=== PATIENT | female | born 2000 | race Caucasian/White ===

== ENCOUNTER 2023-09-21 11:23 | Outpatient (CLI) | payer MEDICAID, SELFPAY | END 2023-09-21 11:24 | disposition home or self-care (01) | LOC: NFLDREF 11:25 | PROVIDERS: Visit Provider Advanced Practice Midwife | DX: Z34.03 Encounter for supervision of normal first pregnancy, third trimester (principal); Z67.91 Unspecified blood type, Rh negative | CPT/HCPCS: 86592; 86850; 87086; 87340; J2791 ==

== ENCOUNTER 2023-10-02 19:18 | Outpatient (CLI) | payer MEDICAID, SELFPAY ==
[2023-10-02 19:37] VITALS: BP 122/72; PULSE 100; RESP 18; TEMP 37.1
--- NOTE | 2023-10-02 21:13 | PC.OBNST ---
NST Note NST Note Start: 10/02/23 19:35 Freq: ONCE Status: Active Protocol: Document 10/02/23 21:00 SHAUNA (Rec: 10/02/23 21:03 SHAUNA [id number]) NST Note 1 Para (# of births) 0 EDC 12/11/23 Gestational Age In Weeks & Days 30 Weeks & 0 Days Patient Presented with Complaint(s) of Vaginal bleeding Reactive Yes Appropriate for Gestational Age Yes SABA Ram RN Date 10/02/23 Reactive Yes Appropriate for Gestational Age Yes SABA Cook RN Date 10/02/23 OB NST charge Yes Complete NST Note via Write Note Yes The provider's electronic signature indicates the NST is reactive/appropriate for gestational age. *Note to provider: If an addendum is required, open the patient's chart and click on the note under the Nurse/Allied Health tab.
--- NOTE | 2023-10-07 16:30 | PC.OBNST ---
NST Note NST Note Start: 10/02/23 19:35 Freq: ONCE Status: Discharge Protocol: Document 10/02/23 21:00 SHAUNA (Rec: 10/02/23 21:03 SHAUNA [id number]) NST Note 1 Para (# of births) 0 EDC 12/11/23 Gestational Age In Weeks & Days 30 Weeks & 0 Days Patient Presented with Complaint(s) of Vaginal bleeding Reactive Yes Appropriate for Gestational Age Yes SABA Ram RN Date 10/02/23 Reactive Yes Appropriate for Gestational Age Yes SABA Cook RN Date 10/02/23 OB NST charge Yes Complete NST Note via Write Note Yes The provider's electronic signature indicates the NST is reactive/appropriate for gestational age. *Note to provider: If an addendum is required, open the patient's chart and click on the note under the Nurse/Allied Health tab.
== END 2023-10-02 20:26 | disposition home or self-care (01) ==
LOC: OB OUT 19:19 → OB 19:19
PROVIDERS: Visit Provider Advanced Practice Midwife
DX: O46.93 Antepartum hemorrhage, unspecified, third trimester (principal); Z3A.30 30 weeks gestation of pregnancy
CPT/HCPCS: 59025; G0463

== ENCOUNTER 2023-11-16 15:00 | Outpatient (CLI) | payer MEDICAID, SELFPAY | END 2023-11-16 15:01 | disposition home or self-care (01) | LOC: NFLDREF 11-18 02:25 | PROVIDERS: Visit Provider Obstetrics & Gynecology | DX: Z34.93 Encounter for supervision of normal pregnancy, unspecified, third trimester (principal); R09.89 Other specified symptoms and signs involving the circulatory and respiratory systems; Z3A.36 36 weeks gestation of pregnancy | CPT/HCPCS: 87081; 87653 ==

== ENCOUNTER 2023-11-17 14:51 | Outpatient (CLI) | payer MEDICAID, SELFPAY ==
--- NOTE | 2023-11-17 15:00 | CRLHL7_ITS ---
For Patients: As a result of the Century Cures Act, medical imaging exams and procedure reports are released immediately into your electronic medical record. You may view this report before your referring provider. If you have questions, please contact your health care provider. INDICATION: Pain and swelling left lower extremity. patient. COMPARISON: None. TECHNIQUE: A compression venous ultrasound exam was performed of the left lower extremity using hastings-scale imaging, color Doppler, and spectral Doppler analysis. FINDINGS: Sonographic imaging of the left lower extremity demonstrates normal compressibility and color Doppler venous blood flow within the common femoral, femoral, deep femoral, and proximal greater saphenous veins. At a lower level the popliteal, peroneal, and posterior tibial veins also show normal compressibility and color Doppler venous blood flow. There is a patent superficial varicosity along the lateral aspect of the left knee. Limited imaging of the contralateral groin demonstrates a normal spectral waveform and color Doppler venous blood flow within the right common femoral vein. IMPRESSION: Negative for acute DVT in the left lower extremity. Dictated by Aleyda Shah MD @ 11/18/2023 2:40:17 AM (Electronically Signed)
== END 2023-11-17 14:52 | disposition home or self-care (01) ==
LOC: US 14:51
PROVIDERS: Visit Provider Obstetrics & Gynecology
DX: O26.899 Other specified pregnancy related conditions, unspecified trimester (principal); R09.89 Other specified symptoms and signs involving the circulatory and respiratory systems
CPT/HCPCS: 93971

== ENCOUNTER 2023-12-12 17:13 | Inpatient (IN) | payer MEDICAID, SELFPAY ==
[2023-12-12] VITALS (29 sets, daily range): BP systolic 108–138; BP diastolic 54–86; PULSE 80–103; TEMP 36.4–36.8; O2SAT 96–100; BMI 38.9
[2023-12-12 17:01] LABS: Amnisure Rom* POSITIVE
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
[2023-12-12 20:33] LABS: Basophils Percent Auto 0.2 % (0.0-3.0); Hemoglobin* 11.2 gm/dL (12.0-16.0); Immature Granulocytes Pct Auto 0.5 %; Lymphocytes Percent Auto 8.1 % (20-44); Mean Corpuscular HGB Conc 33 gm/dL (32-36); Mean Corpuscular Hemoglobin 29 pg (26-34); Mean Corpuscular Volume 87 fL (80-100); Monocytes Percent Auto 8.6 % (0.0-11.0); Neutrophils Percent Auto 82.6 % (42.0-72.0); Platelet Count* 216 K/uL (140-440); RDW Coefficient of Variation % 12.1 % (11.5-15.5); Red Blood Count 3.92 m/uL (4.00-5.20); Slide Review Reflex No; White Blood Count* 13.33 K/uL (4.50-11.00)
[2023-12-12] MEDS: LACTATED RINGERS 1000 ML 1,000 ML IV ×2 (21:09→22:11)
[2023-12-12] MEDS: ROPIVACAINE 0.2% 100 ml 100 ML 12 MG EPIDURAL (21:46)
[2023-12-12] MEDS: LIDOCAINE 2% (PF) 5 ML VIAL EPIDURAL (21:52)
--- NOTE | 2023-12-12 21:58 | PM.ANBPRC ---
[facility] Medical History Anxiety and depression ?F41.9 - Anxiety disorder, unspecified (ICD-10) ?F32.A - Depression, unspecified (ICD-10) Surgical History H/O Spinal surgery ?Z98.890 - Other specified postprocedural states (ICD-10) Social History What is your current living situation?: I presently have a place to live Problems where you live: no known problems In the past 12 months, utilities in danger of being shut off: no In past 12 months, lack of transportation kept you from medical appts, meetings, work, or getting things needed for daily living: no In the past 12 mos, have been you worried that your food would run out before you had money to buy more?: never true In the past 12 mos, the food you bought just didn't last and you didn't have money to buy more?: never true Smoking Status: Never smoker How often does anyone, including family, friends and others, physically hurt you: never How often does anyone, including family, friends and others, insult or talk down to you: never How often does anyone, including family, friends and others, threaten you with harm: never How often does anyone, including family, friends and others, scream or curse at you: never Little interest or pleasure in doing things: several days Feeling down, depressed, or hopeless: not at all Meds Home Medications and Allergies Home Medications ?Medication ?Instructions ?Recorded ?Confirmed ?Type PNV 86-iron ps 32 mg iron-folic 1 See Rx Instructions PO PER PKG DIR 09/07/23 12/12/23 History mg-dha 120 mg-epa 180 mg oral pack ondansetron HCl 4 mg tablet 4 mg PO Q8H 09/07/23 12/12/23 History pyridoxine (vitamin B6) 25 mg 25 mg PO QDAY 09/07/23 12/12/23 History tablet Allergies Allergy/AdvReac Type Severity Reaction Status Date / Time No Known Drug Allergies Allergy Verified 12/07/23 11:04 Results Labs Labs: Laboratory Results - last 24 hr 12/12/23 12/12/23 16:31 20:28 WBC 13.33 H RBC 3.92 L Hgb 11.2 L Hct 34.0 MCV 87 MCH 29 MCHC 33 RDW Coeff of [place] 12.1 Plt Count 216 Neut % (Auto) 82.6 H Lymph % (Auto) 8.1 L [place] % (Auto) 8.6 Eos % (Auto) 0.0 Baso % (Auto) 0.2 Neut # (Auto) 11.00 H Lymph # (Auto) 1.10 [place] # (Auto) 1.10 H Eos # (Auto) 0.00 Baso # (Auto) 0.00 Abs Immat Gran (auto) 0.10 Imm/Tot Granulo (auto) 0.5 Membrane Rupture POSITIVE Vital Signs Vital Signs: Last Vital Signs Temp 98 F 12/12/23 20:31 Pulse 96 12/12/23 21:54 BP 127/75 12/12/23 21:54 Pulse Ox 98 12/12/23 21:55 Weight: 109.316 kg Height: 167.64 cm Anesthesia Procedures Epidural Insertion Patient Location: OB Start Time: 21:00 Stop Time: 22:00 Start Date: 12/12/23 Stop Date: 12/12/23 Reason for Block: procedure for pain Patient Position: sitting Performed By: Damon Yin Preanesthetic Checklist: IV checked, risks and benefits discussed, surgical consent, monitors and equipment checked, pre-op evaluation, timeout performed and anesthesia consent Prep: chlorhexidine gluconate Monitoring: blood pressure monitoring, continuous pulse oximetry and heart rate Approach: midline Vertebral Space: lumbar (1-5) Epidural Technique: FABIOLA saline Needle Type: Tuohy needle Injection Technique: continuous catheter Needle gauge: 17 Needle Length (cm): 10 cm Needle Insertion Depth (cm): 9 Catheter Gauge: 19 Catheter Type: multi-orifice Catheter at skin depth (cm): 15 Test Dose Result: negative and lidocaine 1.5% with epinephrine 1 to 200,000
[2023-12-13] VITALS (29 sets, daily range): BP systolic 102–148; BP diastolic 52–90; PULSE 74–119; RESP 16–18; TEMP 36.5–37.7; O2SAT 95–97
[2023-12-13] MEDS: LIDOCAINE 2% (PF) 5 ML VIAL EPIDURAL (01:40)
[2023-12-13] MEDS: OXYTOCIN 30 unit/500 ML in NS 30 UNIT/500 ML BAG 300 UNIT IVPB (03:57)
[2023-12-13] MEDS: METHYLERGONOVINE MALEATE 0.2 MG/ML INJ IM (04:05)
[2023-12-13] MEDS: miSOPROStoL 800 MCG/4 TABLET PR (04:06)
[2023-12-13] MEDS: TRANEXAMIC ACID 100 MG/ML INJ 1000 MG IV (04:10)
[2023-12-13] MEDS: LIDOCAINE 1 % PF 30 ML INJECTION (04:13)
--- NOTE | 2023-12-13 04:50 | W.PM.VAGDEL1 ---
Procedure Delivery date: 12/13/23 Procedure Done: Global Events: Meconium Stained Fluid Intrapartal Events: Mod/Heavy Meconium Fluid and Excessive Bleeding Delivery monitor: external FHT Route of delivery: Episiotomy description: None Laceration description: Labial (Small bilateral labial tears near hymenal ring ) Delivery repair: Vicryl Estimated blood loss (mL): 589 Anesthesia type: Epidural Disposition: floor Complications: None Narrative: The patient is a 23 year-old G 1 P 0 admitted on 12/13/23 at 40 and 1/7 weeks gestation for ruptured of membrane at 1500 and spontaneous labor. SROM occurred at 1500 on 12/12/23 with clear fluid initially but had moderate meconium upon pushing. Labor Analgesia: Epidural Pitocin: For active management of 3rd stage of labor Complete: 12/13/23 at 0228 Pushin12/13/23 at 0235 heart tones during second stage were II At 0351 a viable female infant delivered in vertex OA presentation via spontaneous vaginal delivery. Infant was placed on maternal abdomen. Cord was clamped and cut after a 30-60 second delay. Nose and mouth were bulb suctioned. weight: pending. 8 at 1 minute and 8 at 5 minutes. Shoulder dystocia: No. Nuchal cord: Yes - loose and reduced. Placenta delivered spontaneously and complete at 0355 with a 3 vessel cord. Complications: Uterine atony causing increased bleeding. Uterotonics: 30u of pitocin, 0.2 mg of methergine x 1, 1 g of TXA, and 800 mcg of misoprostol rectally Mother and were stable after delivery. Laceration(s): 1st degree perineal and bilateral labial, repaired with 2-0 vircyl in a continuos locking manner. Sponge and needles counts are correct. Mother and infant were stable at the time of this note. Fani is planning on . Infant Infant Gender: Female presentation: vertex Placental Delivery Description: Spontaneous Cord Description: 3 Vessels, Nuchal Cord (Nuchal cord x 1) and Loose (Reduced)
[2023-12-13] MEDS: IBUPROFEN 600 MG TABLET PO ×3 (05:14→19:48)
[2023-12-13] MEDS: FERROUS SULFATE 325 MG TABLET PO (08:45)
[2023-12-13] MEDS: DOCUSATE SODIUM 100 MG CAPSULE PO (08:46)
[2023-12-13] MEDS: ACETAMINOPHEN 500 MG TABLET 1000 MG PO ×3 (08:46→22:00)
[2023-12-14] VITALS: BP 125/83; PULSE 92; RESP 18; TEMP 36.5; O2SAT 97
[2023-12-14 04:00] VITALS: BP 112/73; PULSE 86; RESP 16; TEMP 36.6; O2SAT 97
[2023-12-14 06:59] LABS: Hemoglobin* 7.9 gm/dL (12.0-16.0)
--- NOTE | 2023-12-14 07:50 | PM.OBPNVD1 ---
OB - PN:Subj Subjective Date Seen: 12/14/23 Patient comments OB post-: no complaints, pain well controlled, tolerating diet and flatus present Independence status: and doing well Independence feeding status: exclusively Narrative: Fani feels well.? Her pain is well controlled with current medications.? She has no new complaints.? Urinary output is adequate and she is voiding without difficulty.? Has a good appetite, is tolerating a general diet, is passing flatus, and has had a bowel movement.? Has scant amount of rubra lochia.? She is ambulating well.?She denies feeling light headed, fatigues, or dizzy. We discussed her Hgb results this morning. She denies feeling symptomatic even in the shower this morning. We discussed option of titrating with oral iron, blood transfusion, IV iron infusion, and retesting hgb later today or sooner if symptoms present. Due to her lack of symptoms we discussed that a transfusion is not necessary. We discussed risks and benefits of retesting, oral iron, and IV iron infusion. She would like to retest hgb later today and start oral iron. She had considered discharge today but will plan to discharge tomorrow instead given this new information. Reviewed signs and symptoms to report. OB - PN: Obj Exam Physical Exam: Vital signs: Temp Pulse Resp BP Pulse Ox O2 Del Method 97.9 F 86 16 112/73 97 Room Air 12/14/23 04:00 12/14/23 04:00 12/14/23 04:00 12/14/23 04:00 12/14/23 04:00 12/14/23 04:00 Narrative: GENERAL APPEARANCE:? normal affect, alert, no distress? MOOD:? appropriate? CHEST:? clear to auscultation and percussion? HEART:? regular rate and rhythm? ABDOMEN:? soft, non-tender the uterine fundus is U/2 and is appropriate for the stage of recovery.? PERINEUM:? mild edema of the perineum, there is a labial laceration that is healing well.? EXTREMITIES:? normal and no edema? OB - PN: Obj Data Labs Labs: Laboratory Results - last 24 hr 12/14/23 06:17 Hgb 7.9 L* OB - PN: A/P Delivery Assessment and Plan (1) Rh negative status during : Status: Acute (2) Maternal varicella, non-immune: Status: Acute (3) Lactating mother: Status: Acute (4) care following vaginal delivery: Status: Acute Plan day: 1 Plan: routine care Comments: Anticipate discharge home tomorrow. Repeat Hgb around 1500 today. Start oral iron EOD.
[2023-12-14] MEDS: FERROUS SULFATE 325 MG TABLET PO (08:25)
[2023-12-14] MEDS: DOCUSATE SODIUM 100 MG CAPSULE PO (08:26)
[2023-12-14 08:31] VITALS: BP 117/83; PULSE 91; RESP 18; TEMP 36.5; O2SAT 98
--- NOTE | 2023-12-14 12:07 | PM.ANPOST ---
Post Anesthesia Note Post Anesthesia Note Patient seen: Inpatient Respiratory Status: adequate Cardiovascular Status: adequate Mental Status: baseline Pain: adequate Temp: baseline Anesthetic awareness: N/A Complications: none Follow care: none
[2023-12-14] MEDS: IBUPROFEN 600 MG TABLET PO (13:05)
[2023-12-14 13:33] VITALS: BP 123/86; PULSE 86; RESP 18; TEMP 36.5; O2SAT 99
[2023-12-14 15:50] LABS: HGB WITH REFLEX TO FERRITIN 8.4 (12.0-16.0)
[2023-12-14 17:20] LABS: Ferritin* 11.6 ng/mL (6.24-137.0)
[2023-12-14] MEDS: ACETAMINOPHEN 500 MG TABLET 1000 MG PO (17:35)
[2023-12-14 20:00] VITALS: BP 113/73; PULSE 78; RESP 20; TEMP 36.7; O2SAT 98
[2023-12-14 23:13] LABS: Rapid Plasma Reagin (RPR) Non Reactive (Non Reactive)
[2023-12-15] MEDS: IBUPROFEN 600 MG TABLET PO ×2 (02:14→08:27)
[2023-12-15 04:30] VITALS: BP 125/85; RESP 18; TEMP 36.7; O2SAT 97
--- NOTE | 2023-12-15 08:00 | PM.OBDSVD1 ---
DS: Providers Provider Date Seen: 12/15/23 Date of admission: 12/12/23 17:13 Primary care physician: Not a Local Provider Admitting Clinician: Shalini Alejo MD Attending Physician on discharge: Sachin SALAZAR APRN Date of Discharge: 12/15/23 DS: Diagnosis Discharge Diagnosis (1) care following vaginal delivery: Status: Acute (2) Lactating mother: Status: Acute (3) Maternal varicella, non-immune: Status: Acute (4) Perineal laceration during delivery: Status: Acute Problem details: 1st degree perineal and bilateral labial repaired Exam Narrative: Exam Narrative: GENERAL APPEARANCE:? normal affect, alert, no distress MOOD:? appropriate CHEST:? clear to auscultation HEART:? regular rate and rhythm ABDOMEN:? soft, non-tender the uterine fundus is At Umbilicus, Midline and is appropriate for the stage of recovery. EXTREMITIES:? normal and moderate edema of lower extremities with left much more swollen. No localized areas of tenderness, erythema. Const: Vital Signs, click to edit/add: Vital Signs - 24 hr 12/14/23 08:31 12/14/23 13:33 12/14/23 20:00 Temperature 97.7 F 97.7 F 98.0 F Pulse Rate [Pulse Oximeter] 91 86 78 Respiratory Rate 18 18 20 Blood Pressure [Le ft Arm] 117/83 123/86 113/73 Pulse Oximetry 98 99 98 Oxygen Delivery Me thod Room Air Room Air Room Air 12/15/23 04:30 Temperature 98.0 F Pulse Rate [Pulse Oximeter] Respiratory Rate 18 Blood Pressure [Le ft Arm] 125/85 Pulse Oximetry 97 Oxygen Delivery Me thod Room Air OB - DS: Summary Hospital Course Hospital Course: The patient is a 23 year old G 1 P 1001 at 40w4d weeks gestation that was admitted to the Center on 12/12/23 for SROM at term. She had an uncomplicated vaginal delivery. She delivered a viable female infant. She is . the patient has done well. The patient feels well.? The pain is well controlled with current medications.? She has no new complaints.? She is breast feeding and reports things are going well, but baby cluster fed last night. the patient has done well.? Vitals have been stable.? She has remained afebrile.? Has a good appetite, is tolerating a general diet.? She is voiding without difficulty.? She is passing gas and has had a bowel movement.? She is ambulating and denies any dizziness.? Has small amount of rubra lochia. She is unsure of plan for prevention.? ?? Problems: anemia due to blood loss? Peripartum Data complications: uterine atony [place] Infant Gender: Female Infant Discharge Plan: Home Time Spent with Patient Time attestation: Total time spent providing and/or coordinating discharge services: Time spent: Less than 30 minutes Discharge Plan Discharge Disposition: Home, Self-Care Date of Admission: 12/12/23 17:13 Attending Provider on Discharge: Jodee Kimball Primary Care Provider: Provider,Not a Local Condition: Stable Anticipated Discharge Date/Time: 12/15/23 12:27 Discharge Medications: New acetaminophen 500 mg Tablet 1,000 mg PO Q6H PRNQty: 60 0RF ferrous sulfate 325 mg (65 mg iron) Tablet 325 mg PO Q OTHER DAY Qty: 60 0RF docusate sodium 100 mg Capsule 100 mg PO DAILY Qty: 60 0RF ibuprofen 600 mg Tablet 600 mg PO Q6H PRNQty: 60 0RF Continued 21-hiin-fjvsf-dha-epa 32 mg iron-1 mg -120 mg-180 mg combo pack See Rx Instructions PO PER PKG DIR 360 Days Qty: 90 3RF Rx Instructions: PO PER PKG DIR Discontinued pyridoxine (vitamin B6) 25 mg tablet 25 mg PO QDAY Hold Instructions: pt stated she is no longer using ondansetron HCl 4 mg tablet 4 mg PO Q8H Hold Instructions: pt stated she is no longer using Unisom (doxylamine) 25 mg tablet 25 mg PO QHS PRN (Reason: nausea and vomiting) Qty: 30 0RF omeprazole 40 mg capsule,delayed release(DR/EC) 40 mg PO QDAY Qty: 30 0RF Discharge Orders: Discharge Order (Routine); Ordered 12/15/23 Ordered By: Jodee Kimball Patient Education: OB [place] Care, OB Vaginal/Breast Feeding Activity Level: Activity as Tolerated Discharge Diet: Regular Follow Up Appointments: [facility] [Provider Group] Forms: [facility] Info Instructions Discharge Comments: Discharge home with baby. Follow up in 2 weeks and 6 weeks. Call the clinic to schedule , may see if needed Hgb 8.4. Iron supplement ordered orally every other day Labs WNL or stable with trending For pain control of perineum, breast and pelvic pain, take 600 mg Ibuprofen every 6 hours as needed by mouth or 1000 mg acetaminophen (Tylenol) every 6 hours by mouth as needed. You can alternate these so you are taking something every 3 hours as needed. A heating pad can also be used for your abdomen or breasts. Use docusate sodium by mouth daily until stools are soft and regular.
[2023-12-15 08:20] VITALS: BP 122/88; RESP 18; TEMP 36.4; O2SAT 97
[2023-12-15] MEDS: FERROUS SULFATE 325 MG TABLET PO (08:27)
[2023-12-15] MEDS: DOCUSATE SODIUM 100 MG CAPSULE PO (08:28)
== END 2023-12-15 10:55 | disposition home or self-care (01) | DRG 806 ==
LOC: OB OUT 17:14 → OB 17:14
PROVIDERS: Advanced Practice Midwife; Admitting Provider Obstetrics & Gynecology; Visit Provider Obstetrics & Gynecology
DX: O42.02 Full-term premature rupture of membranes, onset of labor within 24 hours of rupture (principal); D62 Acute posthemorrhagic anemia; Z37.0 Single live birth; O62.2 Other uterine inertia; Z3A.40 40 weeks gestation of pregnancy; Z78.9 Other specified health status; O90.81 Anemia of the puerperium; O99.344 Other mental disorders complicating childbirth; F32.A Depression, unspecified; O26.893 Other specified pregnancy related conditions, third trimester; Z67.21 Type B blood, Rh negative; O77.0 Labor and delivery complicated by meconium in amniotic fluid; O70.0 First degree perineal laceration during delivery; K21.9 Gastro-esophageal reflux disease without esophagitis
CPT/HCPCS: 01967; 36415; 82728; 84112; 85018; 85025; 86592; A9270; J2001; J2210; J2371; J2795; J7120

== ENCOUNTER 2024-05-16 12:53 | Outpatient (CLI) | payer MEDICAID, SELFPAY | END 2024-05-16 12:54 | disposition home or self-care (01) | LOC: US 12:54 | PROVIDERS: Visit Provider Registered Nurse | DX: Z34.91 Encounter for supervision of normal pregnancy, unspecified, first trimester (principal); O20.9 Hemorrhage in early pregnancy, unspecified; Z3A.01 Less than 8 weeks gestation of pregnancy | CPT/HCPCS: 76817; 83021; 86703; 86706; 86803; 86850; 86900; 86901; 87086; 87340; 87491; 87591 ==

== ENCOUNTER 2024-05-16 14:16 | Outpatient (CLI) | payer MEDICAID, SELFPAY ==
[2024-05-16 21:30] LABS: Chlamydia DNA Amplified* NOT DETECTED (No Detected); GC DNA Amplified* NOT DETECTED (No Detected)
== END 2024-05-16 14:17 | disposition home or self-care (01) ==
PROVIDERS: Visit Provider Physician Assistant
DX: Z34.81 Encounter for supervision of other normal pregnancy, first trimester (principal)
CPT/HCPCS: 83020; 83021; 85660; 86592; 86703; 86704; 86706; 86762; 86787; 86803; 86850; 86900; 86901; 87086; 87340; 87491; 87591

== ENCOUNTER 2024-08-10 12:54 | Outpatient (CLI) | payer MEDICAID, SELFPAY ==
--- NOTE | 2024-08-10 13:00 | CRLHL7_ITS ---
For Patients: As a result of the Century Cures Act, medical imaging exams and procedure reports are released immediately into your electronic medical record. You may view this report before your referring provider. If you have questions, please contact your health care provider. OB ULTRASOUND GREATER THAN 14 WEEKS, 08/11/2023 CLINICAL HISTORY: anatomy. COMPARISON: 05/16/2024. TECHNIQUE: Real time hastings scale imaging of the fetus was performed transabdominal. Evaluate anatomy. FINDINGS: VITALIY by US: 12/28/2024. GA: 20 weeks 0 days. POSITION: Transverse, right. CERVIX: Visualized. Technique: TA. Length of closed cervix: 3.6 cm. PLACENTA/CORD: Placenta position: Fundal. Technique: TA. Placenta tip to internal OS: 5.1 cm. AMNIOTIC FLUID: 5.2 cm SDP. ANATOMY/OBSERVED STRUCTURES: CALVARIUM/SPINE: Cerebellum, 2.4 cm, 23 weeks 5 days. Cisternal Magna, 4.4 mm. Nuchal Fold, 3.4 mm. Lateral Ventricles, 6.2 mm. CSP Midline Falx Choroid Plexus Spine ABDOMEN: Stomach Abd Cord Insert Urinary Bladder Kidneys Diaphragm FACE: Nose/Lips Orbital View Profile LIMBS: Upper Extremities Lower Extremities Hands Feet VASCULAR: 4 Ch Heart LVOT RVOT 3VV 3VTV BIOMETRY: BPD: 4.9 cm, 20 weeks 6 days. 80.5% HC: 18.2 cm, 20 weeks 4 days. 68.0% AC: 16.0 cm, 21 weeks 1 day. 79% FL: 3.4 cm, 20 weeks 5 days. 66.8% FL/AC Ratio: 21.26% MAY/AC Ratio: 1.14. Heart Rate: 154 bpm. Age by this US: 21 weeks 3 days. VITALIY by this US: 12/18/2024. EFW: 382.98 grams, 0 lb 14 oz. Percentile by VITALIY: 89.2% IMPRESSION: 1. Sonographic gestational age 21 weeks 3 days and sonographic due date 12/18/2024. Sonographic age is 10 days ahead of the clinical age. 2. Estimated weight 89th percentile. Abdominal circumference 79th percentile. Jamar Birmingham M.D. [email or web address] Transcribed: 2:59 pm DW/Dictated by: Jamar Birmingham MD @ 08/10/2024 2:38:00 PM (Electronically Signed)
== END 2024-08-10 12:55 | disposition home or self-care (01) ==
LOC: US 12:55
PROVIDERS: Visit Provider Obstetrics & Gynecology
DX: Z34.92 Encounter for supervision of normal pregnancy, unspecified, second trimester (principal); Z3A.20 20 weeks gestation of pregnancy
CPT/HCPCS: 76805

== ENCOUNTER 2024-09-07 14:05 | Outpatient (CLI) | payer MEDICAID, SELFPAY | END 2024-09-07 14:06 | disposition home or self-care (01) | PROVIDERS: Visit Provider Obstetrics & Gynecology | DX: O16.2 Unspecified maternal hypertension, second trimester (principal); Z3A.24 24 weeks gestation of pregnancy | CPT/HCPCS: 82565; 82570; 84156; 84450; 84460; 84520 ==

== ENCOUNTER 2024-09-12 15:25 | Outpatient (CLI) | payer MEDICAID, SELFPAY | END 2024-09-12 15:26 | disposition home or self-care (01) | PROVIDERS: Visit Provider Obstetrics & Gynecology | DX: O16.2 Unspecified maternal hypertension, second trimester (principal); Z3A.24 24 weeks gestation of pregnancy | CPT/HCPCS: 82565; 82570; 84156; 84450; 84460; 84520; 84550 ==

== ENCOUNTER 2024-09-20 13:41 | Outpatient (CLI) | payer MEDICAID, SELFPAY | END 2024-09-20 13:42 | disposition home or self-care (01) | LOC: US 13:41 | PROVIDERS: Visit Provider Obstetrics & Gynecology | DX: O99.212 Obesity complicating pregnancy, second trimester (principal); O14.02 Mild to moderate pre-eclampsia, second trimester; Z3A.25 25 weeks gestation of pregnancy | CPT/HCPCS: 76811 ==

== ENCOUNTER 2024-09-20 15:42 | Outpatient (CLI) | payer MEDICAID, SELFPAY | END 2024-09-20 15:43 | disposition home or self-care (01) | PROVIDERS: Visit Provider Obstetrics & Gynecology | DX: O14.02 Mild to moderate pre-eclampsia, second trimester (principal); Z3A.25 25 weeks gestation of pregnancy | CPT/HCPCS: 76811; 82565; 84450; 84460; 84520 ==

== ENCOUNTER 2024-09-22 10:20 | Outpatient (CLI) | payer MEDICAID, SELFPAY ==
--- NOTE | 2024-09-22 10:45 | CRLHL7_ITS ---
For Patients: As a result of the Century Cures Act, medical imaging exams and procedure reports are released immediately into your electronic medical record. You may view this report before your referring provider. If you have questions, please contact your health care provider. INDICATION: Leg pain and swelling. Varicose veins. TECHNIQUE: Ultrasound venous duplex lower left extremity. Compression venous exam was performed using hastings-scale, color Doppler, and spectral Doppler analysis. COMPARISON: None. FINDINGS: Deep veins: Sonographic imaging demonstrates the left common femoral, deep femoral, superficial femoral, popliteal, posterior tibial and the contralateral right common femoral veins to be fully compressible with normal color Doppler blood flow. Superficial veins: Greater saphenous vein is fully compressible. No popliteal cyst. IMPRESSION: Normal left lower extremity venous ultrasound, no sign of deep venous thrombosis. Dictated by Yannick Jansen MD @ 09/25/2024 12:06:06 AM (Electronically Signed)
== END 2024-09-22 10:21 | disposition home or self-care (01) ==
LOC: US 10:20
PROVIDERS: Visit Provider Obstetrics & Gynecology
DX: O22.00 Varicose veins of lower extremity in pregnancy, unspecified trimester (principal)
CPT/HCPCS: 93971

== ENCOUNTER 2024-09-24 22:39 | Emergency (ER) | payer MEDICAID, SELFPAY ==
--- OUTSIDE RECORDS SUMMARY | 2024-09-24 22:42 | XMS_ITS | Clinical Summary ---
Author Organization [facility] Address [address] [place] [address] Care Team Providers Care Shorts Sifter Name Role Phone Unassigned, Provider Primary Care Provider Unava ilable Source Comments You are receiving this document as you are listed as the primary care provider,follow-up provider, or the patient has been referred to you for consultation.This is in compliance with the Medicare andWhite Hospitalcaid EHR Incentive Program,which states Providers who transition their patient to another setting of careor provider of care or refers their patient to another provider of care shouldprovide summary care record for each transition of care or referral. [facility] Allergies No known active allergies Medications No known medications Social History Tobacco Use Types Packs/Day Years Used Date Smoking Tobacco: Never Assessed Comments Unknown Sex and Gender Information Value Date Recorded Sex Assigned at Not on file Legal Sex Female 6:55 AM CDT Gender Identity Not on file Sexual Orientation Not on file Last Filed Vital Signs Vital Sign Reading Time Taken Comments Blood Pressure - - Pulse - - Temperature 36.3 C (97.3 F) 06/23/2022 5:43 PM EMERGENCY VETERINARIAN Respiratory Rate - - Oxygen Saturation - - Inhaled Oxygen Concentration - - Weight 71.7 kg (158 lb 1 oz) 06/23/2022 5:43 PM EMERGENCY VETERINARIAN Height 167.6 cm (5' 6) 06/23/2022 5:43 PM EMERGENCY VETERINARIAN Body Mass Index 25.51 06/23/2022 5:43 PM EMERGENCY VETERINARIAN Plan of Treatment Health Maintenance Due Date Last Done Comments Cervical Cancer Screening Due 1999 Chlamydia 1999 Hep C Screening (Preventive Services) 1999 HIV Screening (Preventive Services) 2015 Adult Preventive Visit 2017 HepB Vaccine (1) 2018 COVID-19 Vaccine ( season) 2023 07/12/2020, 06/13/2020 Influenza Vaccine (Season Ended) 2024 03/22/2017, 03/22/2017, 01/16/2013, Additional history exists DTaP/Tdap/Td Vaccine (7 - Tdap) 03/21/2027 03/21/2017, 06/16/2012, 09/03/2000, Additional history exists Zoster/Shingles Vaccine (1 of 2) 2049 Hib Vaccine Completed 09/03/2000, 08/17, 09/03/2000, Additional history exists IPV (Polio) Vaccine Completed 09/03/2000, 04/30/2000, 1999, Additional history exists Pneumococcal Vaccine Aged Out 09/03/2000, 09/04/19 No longer eligible based on patient's age to complete this topic HPV Vaccine Completed 12/20/2013, 12/20, 12/20/2012 HepA Vaccine Completed 12/20/2013, 01/16/2013 MCV4 Vaccine Aged Out 12/20/2013, 12/20/2013 No lo nger eligible based on patient's age to complete this topic Meningococcal B Vaccine Aged Out No l onger eligible based on patient's age to complete this topic Care Teams Shorts Sifter Relationship Specialty Start Date End Date Unassigned, Provider [address] [place] [address] PCP - General 01/12/00
--- OUTSIDE RECORDS SUMMARY | 2024-09-24 22:42 | XMS_ITS | Clinical Summary ---
Author Organization [facility] Address [address] [place] [id number] Care Team Providers Care Credit Reporting Clerk Name Role Phone No Ref-Primary, Physician Primary Care Provider Allergies No known active allergies Medications Vit-Fe Fumarate-FA ( MULTIVITAMIN W/IRON) 27-0.8 MG tabletIndications : test positive Take 1 tablet by mouth daily 90 tablet 3 4 Active diphenhydrAMINE (BENADRYL) 25 MG tabletIndications :Nausea and vomiting, unspecified vomiting type Take 1 tablet (25 mg) by mouth every 6 hours as needed for itching or allergies 30 tablet 4 Active Social History Tobacco Use Types Packs/Day Years Used Date Smoking Tobacco: Former Cigarettes Smokeless Tobacco: Never Tobacco Cessation:Counseling Given: Not Answered Comments:Quit cigarette 09/2022 Adolescent Education Answer Date Record ed Getting School Help Needed Not on file 01/09 Comments No Sex and Gender Information Value Date Recorded Sex Assigned at Not on file Legal Sex Female 10:34 AM CDT Gender Identity Not on file Sexual Orientation Not on file Last Filed Vital Signs Vital Sign Reading Time Taken Comments Blood Pressure 110/72 04/26/2023 3:22 PM FISHING BOAT CAPTAIN Pulse 92 04/26/2023 3:22 PM FISHING BOAT CAPTAIN Temperature 37.4 C (99.4 F) 04/26/2023 3:22 PM FISHING BOAT CAPTAIN Respiratory Rate 16 04/26/2023 3:22 PM FISHING BOAT CAPTAIN Oxygen Saturation 98% 04/26/2023 3:22 PM FISHING BOAT CAPTAIN Inhaled Oxygen Concentration - - Weight 77.6 kg (171 lb) 04/26/2023 3:22 PM FISHING BOAT CAPTAIN Height 165.1 cm (5' 5) 02/05/2022 11:27 PM CDT Body Mass Index 28.46 02/05/2022 11:27 PM CDT Plan of Treatment Health Maintenance Due Date Last Done Comments ADVANCE CARE PLANNING 1999 ANNUAL REVIEW OF HM ORDERS 1999 YEARLY PREVENTIVE VISIT 2002 HIV SCREENING 2014 HEPATITIS C SCREENING 2017 PAP 02/21/2020 COVID-19 VACCINE ( season) 2023 07/12/2020, 06/13/2020 PHQ-2 (once per calendar year) 2024 INFLUENZA VACCINE (Season Ended) 2024 03/22/2017, 03/22/2017, 01/16/2013 DTAP/TDAP/TD VACCINE (7 - Td or Tdap) 03/21/2027 03/21/2017, 06/16/2012, 09/03/2000, Additional history exists ZOSTER VACCINE (1 of 2) 2049 HEPATITIS B VACCINE Completed 09/03/2000, 04/30/2000, 1999, Additional history exists PNEUMOCOCCAL VACCINE: PEDIATRICS (0 to 5 YEARS) AND AT-RISK PATIENTS (6 to 49 YEARS) Aged Out 09/03/2000 No longer eligible based on patient's age to complete this topic HPV VACCINE Completed 12/20/2013, 12/20, 12/20/2012 MENINGITIS VACCINE Aged Out 12/20/2013 No longer eligible based on patient's age to complete this topic MENINGITIS B VACCINE Aged Out No long er eligible based on patient's age to complete this topic Insurance * Guarantor: Fani Hu Account Type Relation to Patient Date of Phone Billing Address Personal/Family Self 2000 [id number] [place] [address] [place]ICAID [place] * Guarantor: Fani Hu Account Type Relation to Patient Date of Phone Billing Address Personal/Family Self 2000 [id number] [place] [address] [place]ID [place] Care Teams Credit Reporting Clerk Relationship Specialty Start Date End Date No Ref-Primary, Physician PCP - General 02/06/22
--- OUTSIDE RECORDS SUMMARY | 2024-09-24 22:42 | XMS_ITS | Clinical Summary ---
Author Organization [facility] Address [address] [place] [address] Care Team Providers Care Combat Engineer Name Role Phone Elsewhere, Pcp Primary Care Provider Unavailabl e Source Comments Patient records contain information from all sites at [facility]. For routine questions regarding patient records, call [phone] during business hours, M-F 8:00 AM - 5:00 PM Central Time. Record requests for emergency care only can be directed to [phone] at any time.[facility] Allergies No known active allergies Medications PNV 65-wdhg-ecbcqjdmbbp e-dha 29 mg iron-1 mg -350 mg Take 1 tablet by mouth daily. 4 Active pyridoxine, vitamin B6, (VITAMIN B6) 25 mg tablet Take 1 tablet (25 mg total) by mouth 3 (three) times a day. 90 tablet 1 4 Active doxylamine 25 mg tablet Take 0.5 tablets (12.5 mg total) by mouth at bedtime as needed for nausea or sleep. 30 tablet 1 4 Active ondansetron ODT (ZOFRAN-ODT) 4 mg disintegrating tablet Dissolve 1 tablet (4 mg total) in the mouth every 8 (eight) hours as needed for nausea or vomiting. 20 tablet 4 Active Active Problems Problem Noted Date Diagnosed Date Hyperemesis Gravidarum Mild 06/09/2023 Fracture Vertebra Lumbar Closed Initial 03/22/20 17 Cannabis Mild Use Disorder (Abuse) Uncomplicated 09/15/2016 Depression Major Recurrent Moderate 08/20/2016 Anxiety Generalized Disorder 08/20/2016 Posttraumatic Stress Disorder Brief 08/20/2016 Attention Deficit Hyperactive Disorder 3 Immunizations Immunization Administration Dates Next Due 4vHPV (discontinued) 12/20/2013,01/16/2013 DTaP (Infanrix, Tripedia) 09/03/2000,1999, 1999,1999 HepA Pediatric/Adolescent 12/20/2013,01/16/2013 HepB Pediatric/Adolescent 09/03/2000,1999, 1999 Hib (PRP-T) (ACTHIB, HIBERIX) 09/03/2000, 000,1999,1999 IPV 09/03/2000,04/30/2000,1999 ,1999 Influenza, Unspecified 01/16/2013 MCV4 (Menactra)(Discontinued) 12/20/2013 MMR 06/16/2012,09/03/2000 PCV13 09/03/2000 Tdap 06/16/2012 FLORENCIA 06/16/2012,04/30/2000 Social History Tobacco Use Types Packs/Day Years Used Date Smoking Tobacco: Former Cigarettes Smokeless Tobacco: Never Tobacco Cessation:Counseling Given: Not Answered Alcohol Use Standard Drinks/Week Comments Not Currently 0 (1 standard drink = 0.6 oz pur e alcohol) [facility] Utilities Answer Date Recorded In the past 12 months has th e Car[employer], gas, oil, or water [employer] threatened to shut off services in your home? No 08/11/2023 PHQ-2 Answer Date Recorded PHQ-2 Score 1 06/01/2023 Exercise Vital Sign Answer Date Recorde d On average, how many days pe r week do you engage in moderate to strenuous exercise (like a brisk walk)? 5 days 08/11/2023 On average, how many minutes do you engage in exercise at this level? 150+ min 08/11/2023 Hunger Vital Sign Answer Date Recorded Within the past 12 months, y ou worried that your food would run out before you got the money to buy more. Sometimes true Within the past 12 months, t he food you bought just didn't last and you didn't have money to get more. Sometimes true PRAPARE - Transportation Answer Date Re corded In the past 12 months, has l ack of transportation kept you from medical appointments or from getting medications? No 07/19 In the past 12 months, has l ack of transportation kept you from meetings, work, or from getting things needed for daily living? Yes 08/11/2023 Depression Answer Date Recor ded PHQ-9 Total Score (max 27) 9 06/01 Nutrition Answer Date Recorded On average, how many serving s of fruits and vegetables do you eat per day (serving size is equal to 1 cup or approximately the size of a tennis ball)? 0-2 08/11/2023 Dental Answer Date Recorded Dental: Regular Dentist Unknown 05/25/19 Employment Answer Date Recorded Employment status Unemployed/not in th e paid workforce but seeking employment 08/11/2023 Housing Stability Answer Date Recorded What is your living situation today? I have a [facility] [address] to live 08/11/2023 Comments No Sex and Gender Information Value Date Recorded Sex Assigned at Female 08/15/2023 5:03 PM CDT Legal Sex Female 7:03 PM COMMERCIAL DRONE SOFTWARE DEVELOPER Gender Identity Female 08/15/2023 5:03 PM CDT Sexual Orientation Choose not to disclose 2023 5:03 PM CDT Last Filed Vital Signs Vital Sign Reading Time Taken Comments Blood Pressure 117/79 08/16/2023 3:09 PM CDT Pulse 103 08/16/2023 3:09 PM CDT Temperature 36.1 C (97 F) 06/25/2023 2:33 PM COMMERCIAL DRONE SOFTWARE DEVELOPER Respiratory Rate 14 06/14/2023 3:33 PM COMMERCIAL DRONE SOFTWARE DEVELOPER Oxygen Saturation 98% 06/25/2023 2:33 PM COMMERCIAL DRONE SOFTWARE DEVELOPER Inhaled Oxygen Concentration - - Weight 95 kg (209 lb 6.4 oz) 08/16/2023 3:09 PM CDT Height 164 cm (5' 4.57) 06/15/2023 3:48 PM COMMERCIAL DRONE SOFTWARE DEVELOPER Body Mass Index 35.31 06/15/2023 3:48 PM COMMERCIAL DRONE SOFTWARE DEVELOPER Plan of Treatment Health Maintenance Due Date Last Done Comments Depression Monitoring (PHQ-9) 09/30/2023 06/01/2023 COVID-19 Vaccine ( season) 2023 07/12/2020, 06/13/2020 Influenza Vaccine (#1) 2024 7, 03/22/2017, 01/16/2013 Depression Monitoring (PHQ-9 for quality tracking) 04/19/2024 Cervical/Vaginal Cancer Screening 06/01/2026 06/01/2023 DTaP,Tdap,and Td Vaccines (7 - Td or Tdap) 03/21/2027 03/21/2017, 06/16/2012, 09/03/2000, Additional history exists Hepatitis B Vaccines Completed 09/03/2000, 04/30/2000, 1999, Additional history exists IPV Vaccines Completed 09/03/2000, 04/19, 1999, Additional history exists Pneumococcal vaccine (0-49 years) Aged Out 09/03/2000 No longer eligible based on patient's age to complete this topic Varicella Vaccines Completed 06/16/2012, 04/30/2000 HPV Vaccines Completed 12/20/2013, 12/20, 12/20/2012 Chlamydia and Gonorrhea Screening Discontinued 06/01/2023 HIV Screening Completed 06/01/2023 Hepatitis C Screening Completed 06/01/2023 Procedures Procedure Name Priority Date/Time Associated Diagnosis Comments HCV AB SCRN , S Routine 06/01/2023 10:15 AM COMMERCIAL DRONE SOFTWARE DEVELOPER Examination Normal First First Trimester (HCC) HIV-1/-2 AG AND AB SCRN, PLASMA Routine 06/01/2023 10:15 AM COMMERCIAL DRONE SOFTWARE DEVELOPER Examination Normal First First Trimester (HCC) THINPREP SCREEN HPV REFLEX Routine 06/01/2023 9:24 AM COMMERCIAL DRONE SOFTWARE DEVELOPER Examination Normal First First Trimester (HCC) CHLAMYDIA/GONORRHOE AE AMPLIFIED RNA Routine 06/01/2023 9:23 AM COMMERCIAL DRONE SOFTWARE DEVELOPER Examination Normal First First Trimester (HCC) from Last 3 Months or Most Recently Relevant to Health Maintenance Results * Hepatitis C Virus Antibody Screen (06/01/2023 10:15 AM COMMERCIAL DRONE SOFTWARE DEVELOPER) HCV Ab Scrn , S Negative Negative 06/02/2023 8:43 AM COMMERCIAL DRONE SOFTWARE DEVELOPER [facility] Comment:Tcwykn-eb-uqktss rat io is <1.00. Blood (Blood, Venous) 06/01/2023 10:15 AM COMMERCIAL DRONE SOFTWARE DEVELOPER 06/02/2023 7:30 AM COMMERCIAL DRONE SOFTWARE DEVELOPER Valerie Fuentes APRN CFrandyNFrandyP., M.S.N. LAB MICROBIO LOGY - BLOOD ORDERABLES Final Result [facility] [address] [place] [address] [facility] [address] [place] [address] * HIV-1/-2 Ag and Ab Scrn, Plasma (06/01/2023 10:15 AM COMMERCIAL DRONE SOFTWARE DEVELOPER) HIV Ag/Ab Scrn, P Negative Negative 06/01/2023 7:40 PM COMMERCIAL DRONE SOFTWARE DEVELOPER [facility] Comment: Negative result does not rule out HIV infection. If exposure to HIV infection occurred <14 days ago, contact the laboratory to request addition of HIV-1/HIV-2 RNA detection , Plasma (HPP12). HIV-1 p24 Ag Scrn, P Negative Negative 06/01/2023 7:40 PM COMMERCIAL DRONE SOFTWARE DEVELOPER [facility] Comment: Negative result does not rule out HIV infection. If exposure to HIV infection occurred <14 days ago, contact the laboratory to request addition of HIV-1/HIV-2 RNA detection , Plasma (HPP12). HIV-1 Ab Scrn, P Negative Negative 06/01/2023 7:40 PM COMMERCIAL DRONE SOFTWARE DEVELOPER [facility] Comment: Negative result does not rule out HIV infection. If exposure to HIV infection occurred <14 days ago, contact the laboratory to request addition of HIV-1/HIV-2 RNA detection , Plasma (HPP12). HIV-2 Ab Scrn, P Negative Negative 06/01/2023 7:40 PM COMMERCIAL DRONE SOFTWARE DEVELOPER [facility] Comment: Negative result does not rule out HIV infection. If exposure to HIV infection occurred <14 days ago, contact the laboratory to request addition of HIV-1/HIV-2 RNA detection , Plasma (HPP12). Blood (Blood, Venous) 06/01/2023 10:15 AM COMMERCIAL DRONE SOFTWARE DEVELOPER 06/01/2023 6:09 PM COMMERCIAL DRONE SOFTWARE DEVELOPER us Tresa Jacome APRNNAlfredito., M.S.N. LAB MICROBIO LOGY - BLOOD ORDERABLES Final Result [facility] [address] [place] [address], [place] [facility] [place] [address] [place] [address] * ThinPrep Screen HPV Reflex (06/01/2023 9:24 AM COMMERCIAL DRONE SOFTWARE DEVELOPER) 06/04/2023 1:51 PM COMMERCIAL DRONE SOFTWARE DEVELOPER [facility] Report electronically signed by Kori Calhoun MD I verify that I have examined all relevant slides/materials for the specimen(s) and rendered or confirmed the diagnosis. 06/04/2023 1:51 PM COMMERCIAL DRONE SOFTWARE DEVELOPER [facility] Gross Description Received specimen in a ThinPrep vial. 06/04/2023 1:51 PM COMMERCIAL DRONE SOFTWARE DEVELOPER [facility] Pap Test Source Cervical/Endocervi adria 06/04/2023 1:51 PM COMMERCIAL DRONE SOFTWARE DEVELOPER [facility] Hormone Therapy/Contracep tives None/Not known 06/04/2023 1:51 PM COMMERCIAL DRONE SOFTWARE DEVELOPER [facility] Interpretation Cervical/Endocervi adria (ThinPrep): Satisfactory for Evaluation Negative for Intraepithelial Lesion or Malignancy Reactive cellular changes associated with: Reparative or inflammatory changes Shift in cassie suggestive of bacterial vaginosis 06/04/2023 1:51 PM COMMERCIAL DRONE SOFTWARE DEVELOPER [facility] Thin Prep Vial (Cervix/Endocerv ix) 06/01/2023 9:24 AM COMMERCIAL DRONE SOFTWARE DEVELOPER 06/02/2023 7:58 AM COMMERCIAL DRONE SOFTWARE DEVELOPER us Tresa Jacome APRNNAlfredito., M.S.N. LAB PAP PATH DX ORDERABLES Final Result [facility] [address] [place] [address], [place] [facility] [address] [address] * Chlamydia / Gonorrhoeae Amplified RNA (06/01/2023 9:23 AM COMMERCIAL DRONE SOFTWARE DEVELOPER) Source Swab, Vagina 06/01/2023 11:45 PM COMMERCIAL DRONE SOFTWARE DEVELOPER [facility] Chlamydia trachomatis amplified RNA Negative Negative 06/01/2023 11:45 PM COMMERCIAL DRONE SOFTWARE DEVELOPER [facility] Source Swab, Vagina 06/01/2023 11:45 PM COMMERCIAL DRONE SOFTWARE DEVELOPER [facility] Neisseria gonorrhoeae amplified RNA Negative Negative 06/01/2023 11:45 PM COMMERCIAL DRONE SOFTWARE DEVELOPER [facility] Swab (Vagina) 06/01/2023 9:2 3 AM COMMERCIAL DRONE SOFTWARE DEVELOPER 06/01/2023 2:51 PM COMMERCIAL DRONE SOFTWARE DEVELOPER us Tresa Jacome APRNNAlfredito., M.S.N. LAB MICROBIOLOGY - GENERAL ORDERABLES Final Result [facility] [address] [place] [address], [place] [facility] [address] [address] from Last 3 Months or Most Recently Relevant to Health Maintenance Insurance * Guarantor: Fani Hu Account Type Relation to Patient Date of Phone Billing Address Personal/Family Self [phone] [address] [place] [address] [facility] Care Teams Combat Engineer Relationship Specialty Start Date End Date Elsewhere, Pcp PCP - General 11/24/21
--- OUTSIDE RECORDS SUMMARY | 2024-09-24 22:42 | XMS_ITS | Clinical Summary ---
Author Organization [facility] Address [address] [place] [address] Care Team Providers Care Director Life Insurance Name Role Phone Clinic, No Pcp Or Primary Care Provider Unavaila ble Allergies Active Allergy Reactions Criticality Noted Date Comments Cats (Fur, Dander, Saliva) Edema 4 Itch and face gets swollen Unknown-Follow Up Needed (Include Details In Comments) Itching 07/13/2013 Dog cause itching and facial swelling Medications hydrOXYzine pamoate (VISTARIL) 50 mg capsuleIndicati ons:AUGUSTO (generalized anxiety disorder) Take 1 capsule by mouth at bedtime if needed for Other (Specify) (sleep). Parents keep all medication locked for safety 30 capsule 7 Active Melatonin 5 mg tabIndications: AUGUSTO (generalized anxiety disorder) Take 1 tablet by mouth at bedtime. Parents keep all medication locked for safety 30 tablet 7 Active cetirizine (ZYRTEC) 10 mg tabletIndicatio ns:Seasonal allergic rhinitis due to pollen TAKE 1 TABLET BY MOUTH ONCE DAILY. 30 tablet 12 7 Active fluticasone (50 mcg per actuation) nasal solution (FLONASE)Indica tions:Seasonal allergic rhinitis due to other allergic trigger Inhale 1 [place] into both nostrils once daily if needed (for allergies). 1 Bottle 11 7 Active nabumetone (RELAFEN) 750 mg tabletIndicatio ns:Lumbar burst fracture, sequela,Uncontr olled pain Take 1 tablet by mouth 2 times daily with meals. 20 tablet 7 Active Active Problems Problem Noted Date Diagnosed Date S/P lumbar fusion 04/30/2017 Lumbar burst fracture, closed, initial encounter 03/22/2017 Cannabis abuse 09/15/2016 Alcohol abuse 09/15/2016 Suicide and self-inflicted i njury by cutting and piercing instrument 09/11/2016 Stress headache 09/11/2016 AUGUSTO (generalized anxiety disorder) 08/20/2016 MDD (major depressive disord er), recurrent episode, moderate 08/20/2016 PTSD (post-traumatic stress disorder) 08/20/2016 Attention deficit disorder with hyperactivity(31 4.01) 09/14/2012 Environmental allergies 07/28/2011 Resolved Problems Problem Noted Date Diagnosed Date Resolved Date Anxiety state, unspecified 09/14/2012 0 12/07/2016 Asthma, exercise induced 07/28/2011 Immunizations Immunization Administration Dates Next Due DTaP 2000 PTbK-PftT-ODQ (Pediarix) 2000,1999 HIB PRP-OMP (PedvaxHIB) 09/03/2000,09/17,1999,05/13 Hepatitis A (Peds) 12/20/2013,01/16/2013 Hepatitis B (Peds) 09/03/2000 Human Papilloma Virus Vaccine 12/20/2013, 013 Inactivated Polio Vaccine 09/03/2000,04/30/2000 Influenza, IIV3 (Age >=3 years) 01/16/2013 MENINGOCOCCAL VACCINE 2 VIAL [id number] (MENVEO) 12/20/2013 MMR 06/16/2012,09/03/2000 Tdap 06/16/2012 Varicella Vaccine 06/16/2012,04/30/2000 Family History Medical History Relation Name Comments Arthritis Father Allergies Mother Blood Disease Paternal Grandmother hepiti tis Allergies Sister Relation Name Status Comments Brother Alive Father Alive Maternal Grandfather Maternal Grandmother Alive Mother Alive Paternal Grandfather Alive Paternal Grandmother Alive Sister Alive Social History Tobacco Use Types Packs/Day Years Used Date Smoking Tobacco: Some Days Smokeless Tobacco: Never Tobacco Cessation:Counseling Given: Yes Comments:parents smoke outside Alcohol Use Standard Drinks/Week Comments No 0 (1 standard drink = 0.6 oz pur e alcohol) rarely Comments No Sex and Gender Information Value Date Recorded Sex Assigned at Not on file Legal Sex Female 5:39 AM FINISH SPECIALIST Gender Identity Not on file Sexual Orientation Not on file Occupation Industry Job Start Date Job End Date [employer] Not on file Not on file Not on file Obstetrics History Para Term AB IAB SAB Ectopic Multiple Livin g Live Births 0 0 0 0 0 0 0 0 0 0 Last Filed Vital Signs Vital Sign Reading Time Taken Comments Blood Pressure 106/70 2022 10:21 AM CDT Pulse 51 2022 10:21 AM CDT Temperature 36.8 C (98.3 F) 2022 10:21 AM CDT Respiratory Rate 16 2022 10:2 1 AM CDT Oxygen Saturation 98% 2022 10: 21 AM CDT Inhaled Oxygen Concentration - - Weight 94.7 kg (208 lb 11.2 oz) 06/30/2019 8:58 PM CDT Height 165.1 cm (5' 5) 06/30/2019 8:58 PM CDT Body Mass Index 34.73 06/30/2019 8:58 PM CDT Plan of Treatment Health Maintenance Due Date Last Done Comments HIV for age 15-65 2014 BMI (ht and wt on same day) for age 18+ 2017 Hepatitis C screening for ag e 18-79 2017 Depression screening for age 12+ 12/30/2017 12/30/2016, 12/07/2016, 11/13/2016, Additional history exists Pneumococcal series for age 6-49 (1 of 2 - PCV) 2018 Pap test for age 21-65 02/21/2020 Tetanus booster 06/16/2022 06/16/2012 COVID-19 vaccine series ( season) 2023 07/12/2020, 06/13/2020 Influenza Vaccine (Season Ended) 2024 01/17/20 13 Hepatitis B series for 19+ Completed 09/03, 1999, 1999 Tdap Completed 06/16/2012 HPV series for age 9-26 Completed 12/20/2013, 01/16 Insurance [facility] Member Subscriber Plan / Payer (Ef fective 2019-Present) Name:Fani Hu Relation to Subscriber:Self Name:Fani Hu Payer ID:Not on file Group ID:Not on file Type:Not on file Address: FOR [employer] [place] [address] [address] [facility] [employer] Member Subscriber Plan / Payer (Ef fective 2017-Present) Name:Fani Hu Relation to Subscriber:Self Name:Fani Hu Payer ID:Not on file Group ID:Not on file Type:Not on file [id number] Address: [address] [place] [address] [place] [address] Advance Directives * Full Code (Latest Code Status on File) Date Activated Date Inactivated Comments 09/11/2016 5:26 AM 09/17/2016 5:18 PM Question Answer Comments Code Status Discussion: Not Discussed Care Teams Director Life Insurance Relationship Specialty Start Date End Date Clinic, No Pcp Or . PCP - General 06/30/19
[2024-09-24 22:55] VITALS: BP 136/96; PULSE 128; RESP 22; TEMP 36.9; O2SAT 97; BMI 41.5
[2024-09-25] VITALS (10 sets, daily range): BP systolic 113–119; BP diastolic 66–70; PULSE 93; RESP 0–24; TEMP 37.2; O2SAT 98
--- OUTSIDE RECORDS SUMMARY | 2024-09-25 00:15 | XMS_ITS | Clinical Summary ---
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 Gender Identity Not on file Sexual Orientation Not on file Occupation Industry Job Start Date Job End Date [employer] Not on file Not on [...] for age 9-26 Completed 12/20/2013, 01/16 Insurance [facility] Member Subscriber Plan / Payer (Ef fective 2019-Present) Name:Fani Hu Relation to Subscriber:Self Name:Fani Hu Payer ID:Not on file Group ID:Not on file Type:Not on file Address: FOR [employer] MEDICA[place] [address] [facility] [employer] Member Subscriber Plan / Payer (Ef fective 2017-Present) Name:Fani Hu Relation to Subscriber:Self Name:Fani Hu Payer ID:Not on file Group ID:Not on file Type:Not on file [phone] Address: [address] [place] [address] [place] [address] Advance Directives * Full Code (Latest Code Status on File) Date Activated Date Inactivated Comments 09/11/2016 5:26 AM 09/17/2016 5:18 PM Question Answer Comments Code Status Discussion: Not Discussed Care Teams Collaborating Supervising Physician Relationship Specialty Start Date End Date Clinic, No Pcp Or . PCP - General 06/30/19
--- OUTSIDE RECORDS SUMMARY | 2024-09-25 00:15 | XMS_ITS | Clinical Summary ---
Author Organization [facility] Address [address] [place] [address] Care Team Providers Care Registered Veterinary Technician Name Role Phone No Ref-Primary, Physician Primary [...] Comments Blood Pressure 110/72 04/26/2023 3:22 PM TEAM GUIDE Pulse 92 04/26/2023 3:22 PM TEAM GUIDE Temperature 37.4 C (99.4 F) 04/26/2023 3:22 PM TEAM GUIDE Respiratory Rate 16 04/26/2023 3:22 PM TEAM GUIDE Oxygen Saturation 98% 04/26/2023 3:22 PM TEAM GUIDE Inhaled Oxygen Concentration - - Weight 77.6 kg (171 lb) 04/26/2023 3:22 PM TEAM GUIDE Height 165.1 cm (5' 5) 02/05/2022 11:27 [...] of Phone Billing Address Personal/Family Self 2000 [id number] [facility] [address] [place] [address] [place]ID [id number] * Guarantor: Fani Hu Account Type Relation to Patient Date of Phone Billing Address Personal/Family Self 2000 [id number] [facility] [address] [place] [address] [place] Care Teams Registered Veterinary Technician Relationship Specialty Start Date End Date No Ref-Primary, Physician PCP - General 02/06/22
--- OUTSIDE RECORDS SUMMARY | 2024-09-25 00:15 | XMS_ITS | Clinical Summary ---
Author Organization [facility] Address [address] [place] [address] Care Team Providers Care Resource Conservationist Name Role Phone Unassigned, Provider Primary Care Provider Unava ilable Source Comments You are receiving this document as you are listed as the primary care provider,follow-up provider, or the patient has been referred to you for consultation.This is in compliance with the Medicare and[facility] EHR Incentive Program,which states Providers who transition their patient to another setting of careor provider of care or refers their patient to another provider of care shouldprovide summary care record for each transition of care or referral. [facility] Allergies No known active allergies Medications No [...] 36.3 C (97.3 F) 06/23/2022 5:43 PM INTERIOR DESIGN ASSISTANT Respiratory Rate - - Oxygen Saturation - - Inhaled Oxygen Concentration - - Weight 71.7 kg (158 lb 1 oz) 06/23/2022 5:43 PM INTERIOR DESIGN ASSISTANT Height 167.6 cm (5' 6) 06/23/2022 5:43 PM INTERIOR DESIGN ASSISTANT Body Mass Index 25.51 06/23/2022 5:43 PM INTERIOR DESIGN ASSISTANT Plan of Treatment Health Maintenance Due Date [...] age to complete this topic Care Teams Resource Conservationist Relationship Specialty Start Date End Date Unassigned, Provider [address] [place] [address] PCP - General 01/12/00
--- OUTSIDE RECORDS SUMMARY | 2024-09-25 00:15 | XMS_ITS | Clinical Summary ---
Author Organization [facility] Address [address] [place] [address] Care Team Providers Care Bowl Turner Name Role Phone Elsewhere, Pcp Primary Care Provider Unavailabl e Source Comments Patient records contain information from all sites at [facility]. For routine questions regarding patient records, call [phone] during business hours, M-F 8:00 AM - 5:00 PM Central Time. Record requests for emergency care only can be directed to [phone] at any time.[facility] Allergies No known active allergies Medications PNV 75-tfae-eyohsyvwxmp e-dha 29 mg iron-1 mg -350 mg [...] drink = 0.6 oz pur e alcohol) [facility] Utilities Answer Date Recorded In the past 12 months has th e [place], gas, oil, or water [employer] [employer] threatened to shut off services in your [...] your living situation today? I have a [facility] place to live 08/11/2023 Comments No Sex and Gender Information Value Date Recorded Sex Assigned at Female 08/15/2023 5:03 PM CDT Legal Sex Female 7:03 PM ASSOCIATE QUALITY ENGINEER Gender Identity Female 08/15/2023 5:03 PM CDT Sexual Orientation Choose not to disclose 2023 5:03 PM CDT Last Filed Vital Signs Vital Sign Reading Time Taken Comments Blood Pressure 117/79 08/16/2023 3:09 PM CDT Pulse 103 08/16/2023 3:09 PM CDT Temperature 36.1 C (97 F) 06/25/2023 2:33 PM ASSOCIATE QUALITY ENGINEER Respiratory Rate 14 06/14/2023 3:33 PM ASSOCIATE QUALITY ENGINEER Oxygen Saturation 98% 06/25/2023 2:33 PM ASSOCIATE QUALITY ENGINEER Inhaled Oxygen Concentration - - Weight 95 kg (209 lb 6.4 oz) 08/16/2023 3:09 PM CDT Height 164 cm (5' 4.57) 06/15/2023 3:48 PM ASSOCIATE QUALITY ENGINEER Body Mass Index 35.31 06/15/2023 3:48 PM ASSOCIATE QUALITY ENGINEER Plan of Treatment Health Maintenance Due Date [...] SCRN , S Routine 06/01/2023 10:15 AM ASSOCIATE QUALITY ENGINEER Examination Normal First First Trimester (HCC) HIV-1/-2 AG AND AB SCRN, PLASMA Routine 06/01/2023 10:15 AM ASSOCIATE QUALITY ENGINEER Examination Normal First First Trimester (HCC) THINPREP SCREEN HPV REFLEX Routine 06/01/2023 9:24 AM ASSOCIATE QUALITY ENGINEER Examination Normal First First Trimester (HCC) CHLAMYDIA/GONORRHOE AE AMPLIFIED RNA Routine 06/01/2023 9:23 AM ASSOCIATE QUALITY ENGINEER Examination Normal First First Trimester (HCC) from Last 3 Months or Most Recently Relevant to Health Maintenance Results * Hepatitis C Virus Antibody Screen (06/01/2023 10:15 AM ASSOCIATE QUALITY ENGINEER) HCV Ab Scrn , S Negative Negative 06/02/2023 8:43 AM ASSOCIATE QUALITY ENGINEER [facility] Comment:Ictrfd-pe-izfllw rat io is <1.00. Blood (Blood, Venous) 06/01/2023 10:15 AM ASSOCIATE QUALITY ENGINEER 06/02/2023 7:30 AM ASSOCIATE QUALITY ENGINEER Valerie Fuentes APRN CFrandyNFrandyP., M.S.N. LAB MICROBIO LOGY - BLOOD ORDERABLES Final Result [facility] [address] [place] [address] [facility] [address] [place] [address] * HIV-1/-2 Ag and Ab Scrn, Plasma (06/01/2023 10:15 AM ASSOCIATE QUALITY ENGINEER) HIV Ag/Ab Scrn, P Negative Negative 06/01/2023 7:40 PM ASSOCIATE QUALITY ENGINEER [facility] Comment: Negative result does not rule out HIV infection. If exposure to HIV infection occurred <14 days ago, contact the laboratory to request addition of HIV-1/HIV-2 RNA detection , Plasma (HPP12). HIV-1 p24 Ag Scrn, P Negative Negative 06/01/2023 7:40 PM ASSOCIATE QUALITY ENGINEER [facility] Comment: Negative result does not rule out HIV infection. If exposure to HIV infection occurred <14 days ago, contact the laboratory to request addition of HIV-1/HIV-2 RNA detection , Plasma (HPP12). HIV-1 Ab Scrn, P Negative Negative 06/01/2023 7:40 PM ASSOCIATE QUALITY ENGINEER [facility] Comment: Negative result does not rule out HIV infection. If exposure to HIV infection occurred <14 days ago, contact the laboratory to request addition of HIV-1/HIV-2 RNA detection , Plasma (HPP12). HIV-2 Ab Scrn, P Negative Negative 06/01/2023 7:40 PM ASSOCIATE QUALITY ENGINEER [facility] Comment: Negative result does not rule out HIV infection. If exposure to HIV infection occurred <14 days ago, contact the laboratory to request addition of HIV-1/HIV-2 RNA detection , Plasma (HPP12). Blood (Blood, Venous) 06/01/2023 10:15 AM ASSOCIATE QUALITY ENGINEER 06/01/2023 6:09 PM ASSOCIATE QUALITY ENGINEER us Tresa Jacome APRNNAlfredito., M.S.N. LAB MICROBIO LOGY - BLOOD ORDERABLES Final Result [facility] [address] [place] [address], [place] [facility] [address] [place] [address] * ThinPrep Screen HPV Reflex (06/01/2023 9:24 AM ASSOCIATE QUALITY ENGINEER) 06/04/2023 1:51 PM ASSOCIATE QUALITY ENGINEER [facility] Report electronically signed by Kori Calhoun MD I verify that I have examined all relevant slides/materials for the specimen(s) and rendered or confirmed the diagnosis. 06/04/2023 1:51 PM ASSOCIATE QUALITY ENGINEER [facility] Gross Description Received specimen in a ThinPrep vial. 06/04/2023 1:51 PM ASSOCIATE QUALITY ENGINEER [facility] Pap Test Source Cervical/Endocervi adria 06/04/2023 1:51 PM ASSOCIATE QUALITY ENGINEER [facility] Hormone Therapy/Contracep tives None/Not known 06/04/2023 1:51 PM ASSOCIATE QUALITY ENGINEER [facility] Interpretation Cervical/Endocervi adria (ThinPrep): Satisfactory for Evaluation Negative for Intraepithelial Lesion or Malignancy Reactive cellular changes associated with: Reparative or inflammatory changes Shift in cassie suggestive of bacterial vaginosis 06/04/2023 1:51 PM ASSOCIATE QUALITY ENGINEER [facility] Thin Prep Vial (Cervix/Endocerv ix) 06/01/2023 9:24 AM ASSOCIATE QUALITY ENGINEER 06/02/2023 7:58 AM ASSOCIATE QUALITY ENGINEER us Tresa Jacome APRNNAlfredito., M.S.N. LAB PAP PATH DX ORDERABLES Final Result [facility] [address] [place] [address], [place] [facility] [address] [address] * Chlamydia / Gonorrhoeae Amplified RNA (06/01/2023 9:23 AM ASSOCIATE QUALITY ENGINEER) Source Swab, Vagina 06/01/2023 11:45 PM ASSOCIATE QUALITY ENGINEER [facility] Chlamydia trachomatis amplified RNA Negative Negative 06/01/2023 11:45 PM ASSOCIATE QUALITY ENGINEER [facility] Source Swab, Vagina 06/01/2023 11:45 PM ASSOCIATE QUALITY ENGINEER [facility] Neisseria gonorrhoeae amplified RNA Negative Negative 06/01/2023 11:45 PM ASSOCIATE QUALITY ENGINEER [facility] Swab (Vagina) 06/01/2023 9:2 3 AM ASSOCIATE QUALITY ENGINEER 06/01/2023 2:51 PM ASSOCIATE QUALITY ENGINEER us Tresa Jacome APRNNAlfredito., M.S.N. LAB MICROBIOLOGY - GENERAL ORDERABLES Final Result [facility] [address] [place] [address], [place] [facility] [address] [address] from Last 3 Months or Most Recently Relevant to Health Maintenance Insurance * Guarantor: Fani Hu Account Type Relation to Patient Date of Phone Billing Address Personal/Family Self 2000 [id number] [facility] [address] [place] [address] [facility] Care Teams Bowl Turner Relationship Specialty Start Date End Date Elsewhere, Pcp PCP - General 11/24/21
[2024-09-25 00:19] LABS: Basophils Absolute Auto 0.02 K/uL (0.00-0.30); Basophils Percent Auto 0.2 % (0.0-3.0); Hematocrit 33.2 % (33.0-51.0); Hemoglobin* 10.9 gm/dL (12.0-16.0); Immature Granulocytes Abs Auto 0.08 K/uL (0.00-0.30); Immature Granulocytes Pct Auto 0.8 %; Lymphocytes Percent Auto 14.4 % (20-44); Mean Corpuscular HGB Conc 33 gm/dL (32-36); Mean Corpuscular Hemoglobin 29 pg (26-34); Mean Corpuscular Volume 88 fL (80-100); Monocytes Percent Auto 9.4 % (0.0-11.0); Neutrophils Percent Auto 75.2 % (42.0-72.0); Platelet Count* 202 K/uL (140-440); RDW Coefficient of Variation % 11.8 % (11.5-15.5); Red Blood Count 3.77 m/uL (4.00-5.20); White Blood Count* 9.86 K/uL (4.50-11.00)
[2024-09-25 00:20] LABS: Slide Review Reflex No
--- NOTE | 2024-09-25 00:21 | CRLHL7_ITS ---
For Patients: As a result of the Century Cures Act, medical imaging exams and procedure reports are released immediately into your electronic medical record. You may view this report before your referring provider. If you have questions, please contact your health care provider. INDICATION: Leg pain and swelling. TECHNIQUE: Ultrasound venous duplex bilateral lower extremity. Compression venous exam was performed using hastings-scale, color Doppler, and spectral Doppler imaging. COMPARISON: Left lower extremity venous duplex 09/22/2024. FINDINGS: Deep veins: Sonographic imaging demonstrates the bilateral common femoral, deep femoral, superficial femoral, popliteal, and posterior tibial veins to be fully compressible with normal color Doppler blood flow. Superficial veins: Greater saphenous vein is fully compressible. In the area of pain and swelling (left medial distal thigh), there is a noncompressible varicose vein. No popliteal cyst. IMPRESSION: 1. No sign of deep venous thrombosis in the bilateral lower extremities. 2. Superficial venous thrombosis in a left medial distal thigh varicose vein. Dictated by Esdras Lopez MD @ 09/25/2024 2:12:30 AM (Electronically Signed)
[2024-09-25 00:32] LABS: Chloride* 104 mmol/L (96-114); Potassium* 3.6 mmol/L (3.6-5.1); Sodium* 135 mmol/L (135-149)
--- NOTE | 2024-09-25 00:33 | ED_ITS ---
HPI - Chest Pain General Date Seen: 09/25/24 Chief Complaint: Lower Extremity Swelling Stated Complaint: OB recommended, 26 weeks, left leg bump Time Seen by Provider: 09/24/24 23:47 Source: patient and family Mode of arrival: ambulatory Limitations: no limitations History of Present Illness HPI narrative: 24-year-old at 26 weeks gestation. Presents here with left leg pain, and chest discomfort this started approximately an hour to an hour and a half ago. She has a history of preeclampsia, the mid doing her blood pressures at home and her systolic is usually around 130. She developed the chest pain with associated this she describes is in the center part of her chest and pressure sensation that radiates up to her neck, she does remember this in previous pregnancies or any in this . She has no previous history of any heart problems any history of DVTs or pulmonary emboli, she was seen in the clinic on Wednesday, ultrasound was done. Of her left leg she describes a swelling on the medial side of her popliteal area. And some tenderness and pain. This is growing according to her. She denies any hemoptysis, any pleuritic pain, any syncope. Denies any by bleeding, the baby has been moving fine, her left leg is a little bit more swollen than her right she thinks. There is no exertional component with this. She denies any fevers chills or sweats any productive cough. Pain is not worse with sitting forward orally back Prior episodes: No Onset: during rest Risk Factors Coronary artery disease risk factors: none Thoracic aortic dissection risk factors: none Related Data On Oral Contraceptives: No Previous Rx's ?Medication ?Instructions ?Recorded PNV 86-iron ps 32 mg iron-folic 1 See Rx Instructions PO PER PKG DIR 12/15/23 mg-dha 120 mg-epa 180 mg oral pack 360 days #90 ea promethazine 12.5 mg tablet 25 mg (2 x 12.5 mg) PO Q6H PRN 05/16/24 nausea and vomiting #30 tabs Allergies Allergy/AdvReac Type Severity Reaction Status Date / Time No Known Drug Allergies Allergy Verified 09/24/24 22:54 Review of Systems Status of ROS Reports: 10 or more systems reviewed and unremarkable except as noted in History and below [facility] Medical History Perineal laceration during delivery (12/13/23) ?O70.9 - Perineal laceration during delivery, unspecified (ICD-10) GERD (gastroesophageal reflux disease) ?K21.9 - Gastro-esophageal reflux disease without esophagitis (ICD-10) Back pain affecting ?O99.891 - Other specified diseases and conditions complicating (ICD-10) ?M54.9 - Dorsalgia, unspecified (ICD-10) Rh negative status during ?O26.899 - Other specified related conditions, unspecified trimester (ICD-10) ?Z67.91 - Unspecified blood type, rh negative (ICD-10) Anxiety and depression ?F41.9 - Anxiety disorder, unspecified (ICD-10) ?F32.A - Depression, unspecified (ICD-10) Surgical History H/O Spinal surgery ?Z98.890 - Other specified postprocedural states (ICD-10) Social History Narrative: SOCIAL HISTORY: 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 Marital status: Significant other. Yarsani/cultural needs: no. Chemical or radiation exposure: no. Pre- tobacco use: no. Pre- alcohol use: no. Current tobacco use: no. Current alcohol use: no. Recreational drug use: no. Dietary restrictions: no. Blood transfusion acceptable in an emergency: yes. PSYCHOSOCIAL HISTORY: History of depression or currently depressed: Yes, history. Current or past physical, emotional, or sexual mistreatment: Denies. Problems that will make it hard to make it to appointments: Denies. What is your current living situation?: I presently have a place to live Problems where you live: no known problems In the past 12 months, utilities in danger of being shut off: no In past 12 months, lack of transportation kept you from medical appts, meetings, work, or getting things needed for daily living: no In the past 12 mos, have been you worried that your food would run out before you had money to buy more?: never true In the past 12 mos, the food you bought just didn't last and you didn't have money to buy more?: never true Smoking Status: Never smoker How often does anyone, including family, friends and others, physically hurt you : never How often does anyone, including family, friends and others, insult or talk down to you: never How often does anyone, including family, friends and others, threaten you with harm: never How often does anyone, including family, friends and others, scream or curse at you: never Exam Narrative Exam Narrative: On examination in room 1 she is in no apparent distress she does not look super anxious to me pupils equal round reactive to light there is no scleral icterus redness or TMs are normal oropharynx is normal with a good hydration status her chest has easy respirations bilaterally, with no splinting noted. No tenderness to palpation, her heart sounds no clicks murmurs or gallops her abdomen is soft and gravid there is no tenderness of palpation. On her left leg there is tenderness to palpation over her medial popliteal area with a small discrete swelling, that appears to be of venous varicosity that is superficial. There is a little bit of swelling 1 to 2+ pitting edema bilaterally in her legs but left is greater than right. She moves her legs through full range of motion. Neurologically intact in her upper lower extremities. Const Vital Signs, click to edit/add: Vital Signs - 24 hr 09/24/24 22:55 09/25/24 00:08 09/25/24 00:55 Temperature 98.4 F 99.0 F Pulse Rate [Pulse Oximeter] 128 H 93 Respiratory Rate 22 18 Blood Pressure Blood Pressure [Right Upper Arm] 136/96 H 113/66 Pulse Oximetry 97 98 98 Oxygen Delivery Method Room Air Room Air 09/25/24 00:55 09/25/24 01:00 09/25/24 01:15 Temperature Pulse Rate [Pulse Oximeter] Respiratory Rate 14 24 13 Blood Pressure Blood Pressure [Right Upper Arm] Pulse Oximetry Oxygen Delivery Method 09/25/24 01:30 09/25/24 01:45 09/25/24 01:59 Temperature Pulse Rate [Pulse Oximeter] Respiratory Rate 21 20 11 L Blood Pressure 119/70 Blood Pressure [Right Upper Arm] Pulse Oximetry Oxygen Delivery Method 09/25/24 02:00 09/25/24 02:15 09/25/24 02:17 Temperature Pulse Rate [Pulse Oximeter] Respiratory Rate 16 0 L Blood Pressure Blood Pressure [Right Upper Arm] 119/70 Pulse Oximetry Oxygen Delivery Method Documenting provider has reviewed patient's vital signs: yes Course Reevaluation(s) Time of Reevaluation #1: 02:28 Reevaluation #1: Patient's heart rate came down nicely, to 84, her systolic pressure came down also. Her chest pain markedly improved, D-dimer was elevated at 1.64. Her ultrasound of her leg did show evidence of a superficial varicosity that is thrombosed on the left leg, which is likely accounting for her pain, and likely accounting for the elevated D-dimer. I do think that there is a component of anxiety which I would have also here. I told her this. I did speak to Dr. Villa OB, I want to make sure that I was in missing a pelvic component here, that we needed to do a CT scan of her. She felt comfortable with her heart rate coming down with just the fluids, and everything else that I explained to her. She should stay on her aspirin once daily. I think we should send her home with some advice, if this worsens or she become short of breath , syncope or any pleuritic chest pain she should come back. Dr. Villa wanted her to have a NST before she left. Vital Signs Vital signs: Initial Vital Signs Temperature 98.4 F 09/24/24 22:55 Temperature Source Temporal Artery Scan 09/24/24 22:55 Pulse Rate 128 H 09/24/24 22:55 Respiratory Rate 22 09/24/24 22:55 Blood Pressure 136/96 H 09/24/24 22:55 Blood Pressure Mean 109 H 09/24/24 22:55 Pulse Oximetry 97 09/24/24 22:55 Oxygen Delivery Method Room Air 09/24/24 22:55 Vital Signs Temperature 98.4 F 09/24/24 22:55 Pulse Rate 128 H 09/24/24 22:55 Respiratory Rate 22 09/24/24 22:55 Blood Pressure 136/96 H 09/24/24 22:55 Pulse Oximetry 97 09/24/24 22:55 Oxygen Delivery Method Room Air 09/24/24 22:55 Temperature 99.0 F 09/25/24 00:55 Pulse Rate 93 09/25/24 00:55 Respiratory Rate 0 L 09/25/24 02:15 Blood Pressure 119/70 09/25/24 02:17 Pulse Oximetry 98 09/25/24 00:55 Oxygen Delivery Method Room Air 09/25/24 00:55 Medications Administered Medications: Discontinued Medications Generic Name Dose Route Start Last Admin Trade Name Samson PRN Reason Stop Dose Admin Sodium Chloride 1,000 mls @ 1,000 mls/hr 09/25/24 00:15 09/25/24 00:37 0.9 % Sodium Chloride 1000 Ml IV 09/25/24 01:14 1,000 mls/hr .Q1H ANASTACIA Administration MDM - Chest Pain MDM Narrative Medical decision making narrative: During the evaluation of this patient I considered multiple differential diagnosis is. The life-threatening differential diagnosis include coronary disease/CA, pulmonary embolism, pneumothorax, pneumonia, and aortic dissection. Other differential diagnosis included but were not limited to pericarditis, myocarditis, chest wall pain, GERD, esophageal rupture, rib fracture contusion, pleurisy, as well as other etiologies. I discussed with her she is significantly tachycardic, I went back in her history and reviewed some of her visits to the her OB doctor, her highest was about 109, she sitting around 120 here. Not sure if this is an anxiety component, but definitely makes me were more worried about the fact this could be a pulmonary embolism. I reviewed the preliminary tech report from 09/22. This showed fully compressible veins, radiology has not review this but we will get them to. I will order another ultrasound has there has been some and I will do the other leg also I will do a DI dimer. This will be helpful negative and not as helpful if it is positive. We would I think have the option on doing a chest CT at 26 weeks, but I will talk with OB about this. Troponin EKG in the remainder of the chest pain workup should be done also. Given her age I think she is low risk to have unstable angina myocardial infarction, this more likely could be some reflux she is having, biliary colic is unlikely as she does not have a positive Peng sign in his does not really fit that description also. Differential Diagnosis Differential diagnosis: Likely fracture of rib, pneumothorax, stable angina, unstable angina pectoris, atypical chest pain, st elevation myocardial infarction, costochondritis, chest pain and biliary colic Medical Records Data Attestation: I reviewed the patient's medical records. Lab Data Attestation: I reviewed the patient's lab results. Labs: Lab Results 09/25/24 09/25/24 09/25/24 Range/Units 00:08 00:15 01:53 WBC 9.86 (4.50-11.00) K/uL RBC 3.77 L (4.00-5.20) m/uL Hgb 10.9 L (12.0-16.0) gm/dL Hct 33.2 (33.0-51.0) % MCV 88 (80-100) fL MCH 29 (26-34) pg MCHC 33 (32-36) gm/dL RDW Coeff of Helga 11.8 (11.5-15.5) % Plt Count 202 (140-440) K/uL Neut % (Auto) 75.2 H (42.0-72.0) % Lymph % (Auto) 14.4 L (20-44) % [place] % (Auto) 9.4 (0.0-11.0) % Eos % (Auto) 0.0 (0.0-7.0) % Baso % (Auto) 0.2 (0.0-3.0) % Neut # (Auto) 7.40 H (1.7-7.0) K/uL Lymph # (Auto) 1.40 (0.90-2.90) K/uL [place] # (Auto) 0.90 (0.00-0.90) K/UL Eos # (Auto) 0.00 (0.00-0.50) K/uL Baso # (Auto) 0.02 (0.00-0.30) K/uL Abs Immat Gran (auto) 0.08 (0.00-0.30) K/uL Imm/Tot Granulo (auto) 0.8 % D-Dimer Quant (PE/DVT) 1.64 H (0.00-0.50) ug/ml Sodium 135 (135-149) mmol/L Potassium 3.6 (3.6-5.1) mmol/L Chloride 104 (96-114) mmol/L Carbon Dioxide 24 (20-32) mmol/L Anion Gap 7 (7-15) mEq/L BUN 13 (5-24) mg/dL Creatinine 0.6 (0.5-1.5) mg/dL Estimated Creat Clear 134.18 Estimated GFR 128 ml/min Glucose 95 (60-115) mg/dL Calcium 9.5 (8.4-10.6) mg/dL C-Reactive Protein 0.7 (0.5-1.0) mg/dL Urine Color Yellow (Yellow) Urine Appearance Slightly Cloudy A (Clear) Urine pH 6.5 (5.0-8.5) Ur Specific Holiday 1.010 (1.000-1.030) Urine Protein Negative (Negative) Urine Glucose (UA) Negative (Negative) Urine Ketones Negative (Negative) Urine Blood Negative (Negative) Urine Nitrite Negative (Negative) Urine Bilirubin Negative (Negative) Urine Urobilinogen 0.2 (0.2-1.0) Ur Leukocyte Esterase Negative (Negative) Urine RBC 0-2 (0-2) Urine WBC 2-5 (0-5) Ur Squamous Epith Cells Few (None-Few) Urine Bacteria Few A (None) POC Troponin I 0.00 L (0.01-0.04) ng/ml Imaging Data Bilateral leg ultrasound: Attestation: I have reviewed the pertinent imaging results. Radiologist's impression: [place] [address] Diagnostic Imaging Report Patient: Fani Hu MR#: [id number] : 2000 Acct:[id number] Loc: ED Service Date: 09/25/[address]: Ordering Physician: Bridger Elias M.D. Date of Service: 09/25/24 Procedure(s): US venous LE BI Accession Number(s): [id number] cc: Provider,Not a Local; Bridger Elias M.D.~ For Patients: As a result of the Century Cures Act, medical imaging exams and procedure reports are released immediately into your electronic medical record. You may view this report before your referring provider. If you have questions, please contact your health care provider. INDICATION: Leg pain and swelling. TECHNIQUE: Ultrasound venous duplex bilateral lower extremity. Compression venous exam was performed using hastings-scale, color Doppler, and spectral Doppler imaging. COMPARISON: Left lower extremity venous duplex 09/22/2024. FINDINGS: Deep veins: Sonographic imaging demonstrates the bilateral common femoral, deep femoral, superficial femoral, popliteal, and posterior tibial veins to be fully compressible with normal color Doppler blood flow. Superficial veins: Greater saphenous vein is fully compressible. In the area of pain and swelling (left medial distal thigh), there is a noncompressible varicose vein. No popliteal cyst. IMPRESSION: 1. No sign of deep venous thrombosis in the bilateral lower extremities. 2. Superficial venous thrombosis in a left medial distal thigh varicose vein. Dictated by Esdras Lopez MD @ 09/25/2024 2:12:30 AM (Electronically Signed) ECG Data Attestation: I personally reviewed and interpreted this ECG as follows: ECG interpretation date: 09/25/24 Prior ECG tracings: not available for review Interpretation: EKG shows normal sinus rhythm, with some mild sinus arrhythmia, ventricular rate 84, QRS normally 4 QT 376 and QTC 444 Assessment, normal EKG Discharge Plan Discharge Clinical Impression: Chest pain, , Varicose vein leg preg-unsp, Anxiety and depression Patient Disposition: Home w/ Parent or Adult Condition: Improved Instructions: Chest Pain (DC), at 23 to 26 Weeks (ED) Additional Instructions: Home, rest, warm compresses over the area that is with the superficial varicosity on the left leg, continue take her aspirin daily. Lots of fluids, increasing chest pain shortness of breath or other issues please come back, but I do think that the superficial varicosities is what is causing the leg pain. He had chest pain I think is a combination of things, but I do not think it is anything severe heart test was negative, your EKG was good. And I do not think in a clot has gone to your lungs. If your and his T is negative, Dr. Goldstein also felt good about letting you go home. Activity Level: Light activity Discharge Diet: Regular Prescriptions: No Action promethazine 12.5 mg tablet 25 mg PO Q6H PRN (Reason: nausea and vomiting) Qty: 30 1RF [id number]-[id number]-dha-epa 32 mg iron-1 mg -120 mg-180 mg combo pack See Rx Instructions PO PER PKG DIR 360 Days Qty: 90 3RF Rx Instructions: PO PER PKG DIR Follow Up/Referrals: Provider,Not a Local [Primary Care Provider, Family Practice] Stand Alone Forms: [employer] Info Instructions
[2024-09-25 00:36] LABS: Anion Gap 7 mEq/L (7-15); Blood Urea Nitrogen* 13 mg/dL (5-24); Calcium* 9.5 mg/dL (8.4-10.6); Carbon Dioxide* 24 mmol/L (20-32); Creatinine* 0.6 mg/dL (0.5-1.5); Est. Creatinine Clearance* 134.18; Estimated Glomerular Filt Rate 128 ml/min; Glucose* 95 mg/dL (60-115)
[2024-09-25] MEDS: 0.9 % SODIUM CHLORIDE 1000 ml 1,000 ML IV (00:37)
[2024-09-25 00:39] LABS: C Reactive Protein* 0.7 mg/dL (0.5-1.0)
[2024-09-25 00:42] LABS: D Dimer Quantitative* 1.64 ug/ml (0.00-0.50)
[2024-09-25 01:59] LABS: Appearance Urine Slightly Cloudy (Clear); Bilirubin Urine Negative (Negative); Blood Urine Negative (Negative); Color Urine Yellow (Yellow); Glucose Urine Negative (Negative); Ketones Urine Negative (Negative); Leukocyte Esterase Urine Negative (Negative); Nitrite Urine Negative (Negative); Protein Urine Negative (Negative); Urobilinogen Urine 0.2 (0.2-1.0); pH Urine 6.5 (5.0-8.5)
[2024-09-25 02:05] LABS: Bacteria Urine Few; RBC Urine 0-2 (0-2); Squamous Epithelial Cell Urine Few (None-Few)
== END 2024-09-25 03:51 | disposition home or self-care (01) ==
PROVIDERS: Emergency Provider Family Medicine
DX: I82.812 Embolism and thrombosis of superficial veins of left lower extremity (principal); R07.9 Chest pain, unspecified; F41.8 Other specified anxiety disorders; Z3A.26 26 weeks gestation of pregnancy
CPT/HCPCS: 36415; 59025; 80048; 81001; 84484; 85025; 85379; 86140; 87086; 93005; 93970; 94761; 99284; J7030

== ENCOUNTER 2024-09-26 13:44 | Outpatient (CLI) | payer MEDICAID, SELFPAY ==
--- NOTE | 2024-09-26 14:00 | CRLHL7_ITS ---
For Patients: As a result of the Century Cures Act, medical imaging exams and procedure reports are released immediately into your electronic medical record. You may view this report before your referring provider. If you have questions, please contact your health care provider. INDICATION: Early-onset gestational hypertension TECHNIQUE: Ultrasound OB pelvis transabdominal. Real-time hastings-scale imaging of the fetus was performed with color Doppler and spectral Doppler analysis of the umbilical artery without stress testing. COMPARISON: Ultrasound 09/20/2024 FINDINGS: Sonographic imaging demonstrates a single living intrauterine gestation. Fetus demonstrates a regular cardiac rate of 142 beats per minute. Fetus has a breech orientation. The placenta lies posterior. Amniotic fluid volume appears normal with a MVP of 7.1 cm. breathing movements, motion, and tone were all observed. IMPRESSION: Single viable intrauterine with a biophysical profile 11/24. Dictated by Attila Marin MD @ 09/26/2024 3:11:38 PM (Electronically Signed)
== END 2024-09-26 13:45 | disposition home or self-care (01) ==
LOC: US 13:44
PROVIDERS: Visit Provider Obstetrics & Gynecology
DX: O13.9 Gestational [pregnancy-induced] hypertension without significant proteinuria, unspecified trimester (principal)
CPT/HCPCS: 76819; 80053

== ENCOUNTER 2024-09-29 10:25 | Outpatient (CLI) | payer MEDICAID, SELFPAY | END 2024-09-29 10:26 | disposition home or self-care (01) | LOC: NFLDREF 10-02 21:42 | PROVIDERS: Visit Provider Obstetrics & Gynecology | DX: O16.9 Unspecified maternal hypertension, unspecified trimester (principal); O13.9 Gestational [pregnancy-induced] hypertension without significant proteinuria, unspecified trimester | CPT/HCPCS: 76819; 82565; 82570; 84156; 84450; 84460; 84520 ==

== ENCOUNTER 2024-09-29 11:18 | Outpatient (CLI) | payer MEDICAID, SELFPAY ==
--- NOTE | 2024-09-29 11:30 | CRLHL7_ITS ---
For Patients: As a result of the Cures Act, medical imaging exams and procedure reports are released immediately into your electronic medical record. You may view this report before your referring provider. If you have questions, please contact your health care provider. OB ULTRASOUND BIOPHYSICAL PROFILE, 09/29/2024 CLINICAL HISTORY: Nonreactive NST. COMPARISON: 09/20/2024, 08/10/2024, 05/16/2024. TECHNIQUE: Real time hastings scale imaging of the fetus was performed. Transabdominal imaging performed. FINDINGS: VITALIY by US: 12/28/2024. GA: 27 weeks 1 day. GESTATION: Single. CERVIX: Not visualized. POSITIONING: Breech. DOPPLERS: heart rate: 150 bpm. BIOPHYSICAL PROFILE: Gross body movements: 2 tone: 2 Respiratory activity: 2 Amniotic fluid: 2 Total score: 8/8 PLACENTA: Technique: TA. Placenta position: Posterior. IMPRESSION: Normal biophysical profile score of 8/8. Jamar Birmingham M.D. Diagnostic Radiologist [email or web address] Transcribed: 4:49 pm DW/Dictated by: Jamar Birmingham MD @ 09/29/2024 3:02:00 PM (Electronically Signed)
== END 2024-09-29 11:19 | disposition home or self-care (01) ==
LOC: US 11:19
PROVIDERS: Visit Provider Obstetrics & Gynecology
DX: O14.02 Mild to moderate pre-eclampsia, second trimester (principal); Z3A.27 27 weeks gestation of pregnancy
CPT/HCPCS: 76819

== ENCOUNTER 2024-10-03 12:38 | Outpatient (CLI) | payer MEDICAID, SELFPAY | END 2024-10-03 12:39 | disposition home or self-care (01) | LOC: NFLDREF 10-06 10:18 | PROVIDERS: Visit Provider Obstetrics & Gynecology | DX: O13.9 Gestational [pregnancy-induced] hypertension without significant proteinuria, unspecified trimester (principal) | CPT/HCPCS: 76819; 80053 ==

== ENCOUNTER 2024-10-03 12:40 | Outpatient (CLI) | payer MEDICAID, SELFPAY ==
--- NOTE | 2024-10-03 13:00 | CRLHL7_ITS ---
For Patients: As a result of the Cures Act, medical imaging exams and procedure reports are released immediately into your electronic medical record. You may view this report before your referring provider. If you have questions, please contact your health care provider. OB ULTRASOUND VITALIY by US: 12/28/2024. GA: 27 w, 5 d. Single. Comparison: 09/29/2024, 09/26/2024, 09/20/2024. INDICATION: GHTN. TECHNIQUE: Real time grayscale imaging of the fetus was performed. Transabdominal. CERVIX: Not visualized. Transabdominal. POSITIONING: Vertex. AMNIOTIC FLUID: 23.1 cm IMELDA. 9.1 cm. SDP (N: greater than 2 x 1 cm) BIOPHYSICAL PROFILE: 2: Gross body movements 2: tone 2: Respiratory activity 2: Amniotic fluid SDP (N: greater than 2 x 1 cm) 8/8: Total score PLACENTA: Technique: Transabdominal. PLACENTA POSITION: Fundal, posterior. DOPPLER: heart rate: 147 bpm. IMPRESSION: Normal biophysical profile score 8/8. Jamar Birmingham M.D. Diagnostic Radiologist [email or web address] LAYA/sherif gorman/Dictated by: Jamar Birmingham MD @ 10/03/2024 3:44:00 PM (Electronically Signed)
== END 2024-10-03 12:41 | disposition home or self-care (01) ==
LOC: US 12:40
PROVIDERS: Visit Provider Obstetrics & Gynecology
DX: O13.2 Gestational [pregnancy-induced] hypertension without significant proteinuria, second trimester (principal); Z3A.27 27 weeks gestation of pregnancy
CPT/HCPCS: 76819

== ENCOUNTER 2024-10-10 12:03 | Outpatient (CLI) | payer MEDICAID, SELFPAY ==
--- NOTE | 2024-10-10 12:15 | CRLHL7_ITS ---
For Patients: As a result of the Century Cures Act, medical imaging exams and procedure reports are released immediately into your electronic medical record. You may view this report before your referring provider. If you have questions, please contact your health care provider. OB ULTRASOUND VITALIY by US: 12/28/2024. GA: 28 w, 5 d. Single. Comparison: 09/20/2024. INDICATION: GHTN. TECHNIQUE: Real time grayscale imaging of the fetus was performed. Transabdominal. CERVIX: Not visualized. POSITIONING: Vertex. AMNIOTIC FLUID: 20.5 IMELDA. 8.1 cm. SDP (N: greater than 2 x 1 cm) BIOPHYSICAL PROFILE: 2: Gross body movements 2: tone 2: Respiratory activity 2: Amniotic fluid SDP (N: greater than 2 x 1 cm) 8: Total score PLACENTA: Technique: Transabdominal. PLACENTA POSITION: Posterior. DOPPLER: heart rate: 163 bpm. BIOMETRY: BPD: 8.1 cm. 32 w, 3 d, >97 percent. HC: 28.7 cm. 31 w, 4 d, 92 percent. AC: 26.7 cm. 30 w, 5 d, 93 percent. FL: 5.9 cm. 30 w, 4 d, 84 percent. FL/AC ratio: 21.94 percent. HC/AC ratio: 1.08. EFW: 1662 g. Weight: 3 lbs, 11 oz. age by this US: 31 w, 2 d. VITALIY by this US: 12/10/2024. Percentile by VITALIY: >97 percent. COMMENT: Growth 09/20/2024 = 96%; 08/10/2024 = 89%. IMPRESSION: 1. Normal biophysical profile score 8/8. 2. Sonographic gestational age 31 weeks 2 days and sonographic due date 12/10/2024. Sonographic age is 17 days ahead of the clinical age. Estimated weight greater than 97th percentile. Abdominal circumference 93rd percentile. BPD greater than 97th percentile. Jamar Birmingham M.D. Diagnostic Radiologist [email or web address] LAYA/sherif gorman/Dictated by: Jamar Birmingham MD @ 10/10/2024 1:01:00 PM (Electronically Signed)
--- OUTSIDE RECORDS SUMMARY | 2024-10-11 01:00 | XMS_ITS | Clinical Summary ---
Author Organization [facility] Address [address] [place] [id number] Care Team Providers Care Cdl Flatbed Truck Driver Name Role Phone No Ref-Primary, Physician Primary [...] Comments Blood Pressure 110/72 04/26/2023 3:22 PM HOME ASSESSMENT NURSE Pulse 92 04/26/2023 3:22 PM HOME ASSESSMENT NURSE Temperature 37.4 C (99.4 F) 04/26/2023 3:22 PM HOME ASSESSMENT NURSE Respiratory Rate 16 04/26/2023 3:22 PM HOME ASSESSMENT NURSE Oxygen Saturation 98% 04/26/2023 3:22 PM HOME ASSESSMENT NURSE Inhaled Oxygen Concentration - - Weight 77.6 kg (171 lb) 04/26/2023 3:22 PM HOME ASSESSMENT NURSE Height 165.1 cm (5' 5) 02/05/2022 11:27 [...] of Phone Billing Address Personal/Family Self 2000 [id number] [place] [address] [place]ID [place] * Guarantor: Fani Hu Account Type Relation to Patient Date of Phone Billing Address Personal/Family Self 2000 [id number] [place] [address] [place] Care Teams Cdl Flatbed Truck Driver Relationship Specialty Start Date End Date No Ref-Primary, Physician PCP - General 02/06/22
--- OUTSIDE RECORDS SUMMARY | 2024-10-11 01:00 | XMS_ITS | Clinical Summary ---
Author Organization [facility] Address [address] [place] [address] Care Team Providers Care Poultry Hanger Name Role Phone Unassigned, Provider Primary Care Provider Unava ilable Source Comments You are receiving this document as you are listed as the primary care provider,follow-up provider, or the patient has been referred to you for consultation.This is in compliance with the Medicare and[place] EHR Incentive Program,which states Providers who transition their patient to another setting of careor provider of care or refers their patient to another provider of care shouldprovide summary care record for each transition of care or referral. [employer] Allergies No known active allergies Medications No [...] 36.3 C (97.3 F) 06/23/2022 5:43 PM AIRFRAME TECHNICIAN Respiratory Rate - - Oxygen Saturation - - Inhaled Oxygen Concentration - - Weight 71.7 kg (158 lb 1 oz) 06/23/2022 5:43 PM AIRFRAME TECHNICIAN Height 167.6 cm (5' 6) 06/23/2022 5:43 PM AIRFRAME TECHNICIAN Body Mass Index 25.51 06/23/2022 5:43 PM AIRFRAME TECHNICIAN Plan of Treatment Health Maintenance Due Date [...] age to complete this topic Care Teams Poultry Hanger Relationship Specialty Start Date End Date Unassigned, Provider [address] [place] [address] PCP - General 01/12/00
--- OUTSIDE RECORDS SUMMARY | 2024-10-11 01:00 | XMS_ITS | Clinical Summary ---
Author Organization [facility] Address [address] [place] [address] Care Team Providers Care Shift Engineer Name Role Phone Elsewhere, Pcp Primary Care Provider Unavailabl e Source Comments Patient records contain information from all sites at [facility]. For routine questions regarding patient records, call [phone] during business hours, M-F 8:00 AM - 5:00 PM Central Time. Record requests for emergency care only can be directed to [phone] at any time.[facility] Allergies No known active allergies Medications PNV 42-simo-rtqbglwglun e-dha 29 mg iron-1 mg -350 mg [...] drink = 0.6 oz pur e alcohol) [facility] Utilities Answer Date Recorded In the past 12 months has th e [employer], gas, oil, or water [employer] threatened to shut off services in your home? No 08/11/2023 Hunger Vital Sign Answer Date Recorded [...] PHQ-9 Total Score (max 27) 9 06/01 Housing Stability Answer Date Recorded What is your living situation today? [facility] 08/11/2023 Comments No Sex and Gender Information Value Date Recorded Sex Assigned at Female 08/15/2023 5:03 PM CDT Legal Sex Female 7:03 PM MARKETING AND OUTREACH COORDINATOR Gender Identity Female 08/15/2023 5:03 PM CDT Sexual Orientation Choose not to disclose 2023 5:03 PM CDT Last Filed Vital Signs Vital Sign Reading Time Taken Comments Blood Pressure 117/79 08/16/2023 3:09 PM CDT Pulse 103 08/16/2023 3:09 PM CDT Temperature 36.1 C (97 F) 06/25/2023 2:33 PM MARKETING AND OUTREACH COORDINATOR Respiratory Rate 14 06/14/2023 3:33 PM MARKETING AND OUTREACH COORDINATOR Oxygen Saturation 98% 06/25/2023 2:33 PM MARKETING AND OUTREACH COORDINATOR Inhaled Oxygen Concentration - - Weight 95 kg (209 lb 6.4 oz) 08/16/2023 3:09 PM CDT Height 164 cm (5' 4.57) 06/15/2023 3:48 PM MARKETING AND OUTREACH COORDINATOR Body Mass Index 35.31 06/15/2023 3:48 PM MARKETING AND OUTREACH COORDINATOR Plan of Treatment Health Maintenance Due Date [...] SCRN , S Routine 06/01/2023 10:15 AM MARKETING AND OUTREACH COORDINATOR Examination Normal First First Trimester (HCC) HIV-1/-2 AG AND AB SCRN, PLASMA Routine 06/01/2023 10:15 AM MARKETING AND OUTREACH COORDINATOR Examination Normal First First Trimester (HCC) THINPREP SCREEN HPV REFLEX Routine 06/01/2023 9:24 AM MARKETING AND OUTREACH COORDINATOR Examination Normal First First Trimester (HCC) CHLAMYDIA/GONORRHOE AE AMPLIFIED RNA Routine 06/01/2023 9:23 AM MARKETING AND OUTREACH COORDINATOR Examination Normal First First Trimester (HCC) from Last 3 Months or Most Recently Relevant to Health Maintenance Results * Hepatitis C Virus Antibody Screen (06/01/2023 10:15 AM MARKETING AND OUTREACH COORDINATOR) HCV Ab Scrn , S Negative Negative 06/02/2023 8:43 AM MARKETING AND OUTREACH COORDINATOR [facility] Comment:Buqbim-ur-kfekaa rat io is <1.00. Blood (Blood, Venous) 06/01/2023 10:15 AM MARKETING AND OUTREACH COORDINATOR 06/02/2023 7:30 AM MARKETING AND OUTREACH COORDINATOR us Valerie Fuentes APRN C.N.P., M.S.N. LAB MICROBIO LOGY - BLOOD ORDERABLES Final Result [facility] [address] [place] [address] [facility] [address] [place] [address] * HIV-1/-2 Ag and Ab Scrn, Plasma (06/01/2023 10:15 AM MARKETING AND OUTREACH COORDINATOR) HIV Ag/Ab Scrn, P Negative Negative 06/01/2023 7:40 PM MARKETING AND OUTREACH COORDINATOR [facility] Comment: Negative result does not rule out HIV infection. If exposure to HIV infection occurred <14 days ago, contact the laboratory to request addition of HIV-1/HIV-2 RNA detection , Plasma (HPP12). HIV-1 p24 Ag Scrn, P Negative Negative 06/01/2023 7:40 PM MARKETING AND OUTREACH COORDINATOR [facility] Comment: Negative result does not rule out HIV infection. If exposure to HIV infection occurred <14 days ago, contact the laboratory to request addition of HIV-1/HIV-2 RNA detection , Plasma (HPP12). HIV-1 Ab Scrn, P Negative Negative 06/01/2023 7:40 PM MARKETING AND OUTREACH COORDINATOR [facility] Comment: Negative result does not rule out HIV infection. If exposure to HIV infection occurred <14 days ago, contact the laboratory to request addition of HIV-1/HIV-2 RNA detection , Plasma (HPP12). HIV-2 Ab Scrn, P Negative Negative 06/01/2023 7:40 PM MARKETING AND OUTREACH COORDINATOR [facility] Comment: Negative result does not rule out HIV infection. If exposure to HIV infection occurred <14 days ago, contact the laboratory to request addition of HIV-1/HIV-2 RNA detection , Plasma (HPP12). Blood (Blood, Venous) 06/01/2023 10:15 AM MARKETING AND OUTREACH COORDINATOR 06/01/2023 6:09 PM MARKETING AND OUTREACH COORDINATOR us Valerie Fuentes APRN, C.N.P., M.S.N. LAB MICROBIO LOGY - BLOOD ORDERABLES Final Result [facility] [address] [place] [id number], [facility] [place] [address] [place] [address] * ThinPrep Screen HPV Reflex (06/01/2023 9:24 AM MARKETING AND OUTREACH COORDINATOR) 06/04/2023 1:51 PM MARKETING AND OUTREACH COORDINATOR [facility] Report electronically signed by Kori Calhoun MD I verify that I have examined all relevant slides/materials for the specimen(s) and rendered or confirmed the diagnosis. 06/04/2023 1:51 PM MARKETING AND OUTREACH COORDINATOR [facility] Gross Description Received specimen in a ThinPrep vial. 06/04/2023 1:51 PM MARKETING AND OUTREACH COORDINATOR [facility] Pap Test Source Cervical/Endocervi adria 06/04/2023 1:51 PM MARKETING AND OUTREACH COORDINATOR [facility] Hormone Therapy/Contracep tives None/Not known 06/04/2023 1:51 PM MARKETING AND OUTREACH COORDINATOR [facility] Interpretation Cervical/Endocervi adria (ThinPrep): Satisfactory for Evaluation Negative for Intraepithelial Lesion or Malignancy Reactive cellular changes associated with: Reparative or inflammatory changes Shift in cassie suggestive of bacterial vaginosis 06/04/2023 1:51 PM MARKETING AND OUTREACH COORDINATOR [facility] Thin Prep Vial (Cervix/Endocerv ix) 06/01/2023 9:24 AM MARKETING AND OUTREACH COORDINATOR 06/02/2023 7:58 AM MARKETING AND OUTREACH COORDINATOR us Kiara Jacome APRN.N.Shaq., M.S.N. LAB PAP PATH DX ORDERABLES Final Result Performing Organization Address City/[facility]/ZIP Co de Phone Number [facility] [address] [place] [address], [place] [facility] [address] [place] [address] * Chlamydia / Gonorrhoeae Amplified RNA (06/01/2023 9:23 AM MARKETING AND OUTREACH COORDINATOR) Source Swab, Vagina 06/01/2023 11:45 PM MARKETING AND OUTREACH COORDINATOR [facility] Chlamydia trachomatis amplified RNA Negative Negative 06/01/2023 11:45 PM MARKETING AND OUTREACH COORDINATOR [facility] Source Swab, Vagina 06/01/2023 11:45 PM MARKETING AND OUTREACH COORDINATOR [facility] Neisseria gonorrhoeae amplified RNA Negative Negative 06/01/2023 11:45 PM MARKETING AND OUTREACH COORDINATOR [facility] Swab (Vagina) 06/01/2023 9:2 3 AM MARKETING AND OUTREACH COORDINATOR 06/01/2023 2:51 PM MARKETING AND OUTREACH COORDINATOR us Kiara Jacome APRN.N.P., M.S.N. LAB MICROBIOLOGY - GENERAL ORDERABLES Final Result [facility] [address] [place] [address], [facility] [address] [facility] [address] [place] [phone] from Last 3 Months or Most Recently Relevant to Health Maintenance Insurance * Guarantor: Fani Hu Account Type Relation to Patient Date of Phone Billing Address Personal/Family Self 2000 [id number] [facility] [address] [place] [address] [facility] Care Teams Shift Engineer Relationship Specialty Start Date End Date Elsewhere, Pcp PCP - General 11/24/21
--- OUTSIDE RECORDS SUMMARY | 2024-10-11 01:00 | XMS_ITS | Clinical Summary ---
Author Organization [facility] Address [address] [place] [address] Care Team Providers Care Director Of Social Media Marketing Name Role Phone Clinic, No Pcp Or [...] capsule 7 Active Melatonin 5 mg tabIndications: AUGUSOT (generalized anxiety disorder) Take 1 tablet by mouth at bedtime. Parents keep all medication locked for safety 30 tablet 7 Active cetirizine (ZYRTEC) 10 mg tabletIndicatio ns:Seasonal allergic rhinitis due to pollen TAKE 1 TABLET BY MOUTH ONCE DAILY. 30 tablet 12 7 Active fluticasone (50 mcg per actuation) nasal solution (FLONASE)Indica tions:Seasonal allergic rhinitis due to other allergic trigger Inhale 1 Ethel into both nostrils once daily if needed [...] Immunization Administration Dates Next Due DTaP 2000 VHbO-UdtB-YDV (Pediarix) 2000,1999 HIB PRP-OMP (PedvaxHIB) 09/03/2000,09/17,1999,05/13 Hepatitis [...] on file Legal Sex Female 5:39 AM LEARNING AND DEVELOPMENT MANAGER Gender Identity Not on file Sexual Orientation Not on file Occupation Industry Job Start Date Job End Date [employer] Not on file Not on [...] for age 9-26 Completed 12/20/2013, 01/16 Insurance [facility] Member Subscriber Plan / Payer (Ef fective 2019-Present) Name:Fani Hu Relation to Subscriber:Self Name:Fani Hu Payer ID:Not on file Group ID:Not on file Type:Not on file Address: FOR [employer] [place] [address] [facility] [employer] Member Subscriber Plan / Payer (Ef fective 2017-Present) Name:Fani Hu Relation to Subscriber:Self Name:Fani Hu Payer ID:Not on file Group ID:Not on file Type:Not on file [phone] Address: [address] [place] [address] [place] [address] Advance Directives * Full Code (Latest Code Status on File) Date Activated Date Inactivated Comments 09/11/2016 5:26 AM 09/17/2016 5:18 PM Question Answer Comments Code Status Discussion: Not Discussed Care Teams Director Of Social Media Marketing Relationship Specialty Start Date End Date Clinic, No Pcp Or . PCP - General 06/30/19
== END 2024-10-10 12:04 | disposition home or self-care (01) ==
LOC: US 12:03
PROVIDERS: Visit Provider Obstetrics & Gynecology
DX: O13.3 Gestational [pregnancy-induced] hypertension without significant proteinuria, third trimester (principal); O36.63X0 Maternal care for excessive fetal growth, third trimester, not applicable or unspecified; Z3A.28 28 weeks gestation of pregnancy; O13.2 Gestational [pregnancy-induced] hypertension without significant proteinuria, second trimester; Z3A.27 27 weeks gestation of pregnancy; O13.9 Gestational [pregnancy-induced] hypertension without significant proteinuria, unspecified trimester; O26.892 Other specified pregnancy related conditions, second trimester; Z67.91 Unspecified blood type, Rh negative
CPT/HCPCS: 76816; 76819; 80053; 86592; 86850; J2791

== ENCOUNTER 2024-10-17 12:21 | Outpatient (CLI) | payer MEDICAID, SELFPAY | END 2024-10-17 12:22 | disposition home or self-care (01) | LOC: NFLDREF 10-21 10:41 | PROVIDERS: Visit Provider Obstetrics & Gynecology | DX: O13.9 Gestational [pregnancy-induced] hypertension without significant proteinuria, unspecified trimester (principal) | CPT/HCPCS: 76819; 80053 ==

== ENCOUNTER 2024-10-24 12:55 | Outpatient (CLI) | payer MEDICAID, SELFPAY | END 2024-10-24 12:56 | disposition home or self-care (01) | LOC: NFLDREF 10-26 16:41 | PROVIDERS: Visit Provider Obstetrics & Gynecology | DX: O14.93 Unspecified pre-eclampsia, third trimester (principal); O13.3 Gestational [pregnancy-induced] hypertension without significant proteinuria, third trimester; Z3A.30 30 weeks gestation of pregnancy | CPT/HCPCS: 76819; 80053 ==

== ENCOUNTER 2024-10-31 13:05 | Outpatient (CLI) | payer MEDICAID, SELFPAY | END 2024-10-31 13:06 | disposition home or self-care (01) | LOC: NFLDREF 11-02 17:32 | PROVIDERS: Visit Provider Obstetrics & Gynecology | DX: O13.9 Gestational [pregnancy-induced] hypertension without significant proteinuria, unspecified trimester (principal) | CPT/HCPCS: 80053 ==

== ENCOUNTER 2024-10-31 13:06 | Outpatient (CLI) | payer MEDICAID, SELFPAY ==
--- NOTE | 2024-10-31 13:00 | CRLHL7_ITS ---
For Patients: As a result of the Century Cures Act, medical imaging exams and procedure reports are released immediately into your electronic medical record. You may view this report before your referring provider. If you have questions, please contact your health care provider. INDICATION: Gestational hypertension. COMPARISON: OB ultrasound 10/24/2024. TECHNIQUE: Ultrasound OB pelvis biophysical profile. Real time hastings scale imaging of the fetus was performed without non-stress testing. FINDINGS: Sonographic imaging demonstrates a single living intrauterine gestation. The fetus has a regular cardiac rate of 159 beats per minute. The fetus has a cephalic orientation. The placenta lies posteriorly. Single deepest pocket measures 8.4 cm. Amniotic fluid index measures 26.0 cm. breathing movements: 2/2 Gross body movements: 2/2 tone: 2/2 Amniotic fluid volume: 2/2 Total: 11/24 IMPRESSION: 1. Normal biophysical profile score 8 out of 8. 2. Polyhydramnios with IMELDA measuring 26.0 cm. Dictated by Aleyda Shah MD @ 11/01/2024 4:42:04 AM (Electronically Signed)
== END 2024-10-31 13:07 | disposition home or self-care (01) ==
LOC: US 13:07
PROVIDERS: Visit Provider Obstetrics & Gynecology
DX: O13.9 Gestational [pregnancy-induced] hypertension without significant proteinuria, unspecified trimester (principal); O40.9XX0 Polyhydramnios, unspecified trimester, not applicable or unspecified
CPT/HCPCS: 76819; 80053

== ENCOUNTER 2024-11-07 13:51 | Outpatient (CLI) | payer MEDICAID, SELFPAY | END 2024-11-07 13:52 | disposition home or self-care (01) | LOC: NFLDREF 11-09 02:36 | PROVIDERS: Visit Provider Obstetrics & Gynecology | DX: O13.9 Gestational [pregnancy-induced] hypertension without significant proteinuria, unspecified trimester (principal) | CPT/HCPCS: 80053 ==

== ENCOUNTER 2024-11-07 13:56 | Outpatient (CLI) | payer MEDICAID, SELFPAY ==
--- NOTE | 2024-11-07 14:00 | CRLHL7_ITS ---
For Patients: As a result of the Century Cures Act, medical imaging exams and procedure reports are released immediately into your electronic medical record. You may view this report before your referring provider. If you have questions, please contact your health care provider. INDICATION: Early-onset gestational hypertension TECHNIQUE: Ultrasound OB pelvis transabdominal. Real-time hastings-scale imaging of the fetus was performed without stress testing. COMPARISON: 10/31/2024. FINDINGS: Sonographic imaging demonstrates a single living intrauterine gestation. Fetus demonstrates a regular cardiac rate of 137 beats per minute. Fetus has a cephalic orientation. Posterior placenta. Biometric measurements: Biparietal diameter: 8.7 cm, 35 weeks 2 days. Head circumference: 32.2 cm, 36 weeks 3 days. Abdominal circumference: 31.8 cm, 35 weeks 5 days. Femur length: 6.4 cm, 33 weeks 0 days. Estimated weight: 3,582g, 96th percentile. Estimated ultrasound age by today`s measurements is 35 weeks 1 day. Amniotic fluid volume appears elevated with an IMELDA of 26.6 cm. breathing movements, motion, and tone were all observed. IMPRESSION: 1. Single viable intrauterine measuring 35 weeks 1 day with a biophysical profile 8. 2. Persistence polyhydramnios with IMELDA measuring 26.6 cm. 3. Estimated weight greater than the 96th percentile for gestational age. Dictated by Isauro Antonio MD @ 11/09/2024 10:55:29 PM (Electronically Signed)
== END 2024-11-07 13:57 | disposition home or self-care (01) ==
LOC: US 13:56
PROVIDERS: Visit Provider Obstetrics & Gynecology
DX: O13.3 Gestational [pregnancy-induced] hypertension without significant proteinuria, third trimester (principal); O40.3XX0 Polyhydramnios, third trimester, not applicable or unspecified; Z3A.35 35 weeks gestation of pregnancy
CPT/HCPCS: 76816; 76819; 80053

== ENCOUNTER 2024-11-14 12:50 | Outpatient (CLI) | payer MEDICAID, SELFPAY ==
--- NOTE | 2024-11-14 13:00 | CRLHL7_ITS ---
For Patients: As a result of the Cures Act, medical imaging exams and procedure reports are released immediately into your electronic medical record. You may view this report before your referring provider. If you have questions, please contact your health care provider. FOLLOW-UP OB ULTRASOUND AND BIOPHYSICAL PROFILE VITALIY by US: 12/28/2024. GA: 33 w, 5 d. COMPARISONS: 11/07/2024, 10/31/2024, 10/24/2024. INDICATION: Early onset gestational hypertension. TECHNIQUE: Real time hastings scale imaging of the fetus was performed, transabdominal. position: Breech. Cervix: Visualized, 3.8 cm. Technique: Transabdominal. Amniotic Fluid: 28.7 cm IMELDA, 9.5 cm SDP (N: greater than 2x1 cm) Placenta Position: Posterior. Technique: Transabdominal. Heart Rate: 169 bpm. BIOMETRY PROFILE Gross Body Movements: 2. Tone: 2. Respiratory Activity: 2. Amniotic Fluid SDP (N greater than 2x1 cm) TOTAL SCORE: 8/8. IMPRESSION: 1. Single live intrauterine gestation. 2. Biophysical profile score is 8/8. 3. Polyhydramnios with IMELDA of 28.7 single deepest pocket 9.5 Deirdre Boyle M.D. Diagnostic/Breast Radiologist [email or web address] SHAUN/kendell / DW/Dictated by: Deirdre Boyle MD @ 11/19/2024 7:00:00 AM (Electronically Signed)
== END 2024-11-14 12:51 | disposition home or self-care (01) ==
LOC: US 12:51
PROVIDERS: Visit Provider Obstetrics & Gynecology
DX: O13.3 Gestational [pregnancy-induced] hypertension without significant proteinuria, third trimester (principal); Z3A.33 33 weeks gestation of pregnancy
CPT/HCPCS: 76819; 80053

== ENCOUNTER 2024-11-17 11:34 | Outpatient (CLI) | payer MEDICAID, SELFPAY ==
--- NOTE | 2024-11-17 11:30 | CRLHL7_ITS ---
For Patients: As a result of the Century Cures Act, medical imaging exams and procedure reports are released immediately into your electronic medical record. You may view this report before your referring provider. If you have questions, please contact your health care provider. INDICATION: Nonreactive nonstress test TECHNIQUE: Ultrasound OB pelvis transabdominal. Real-time hastings-scale imaging of the fetus was performed with color Doppler and spectral Doppler analysis of the umbilical artery without stress testing. COMPARISON: 11/14/2024 FINDINGS: Sonographic imaging demonstrates a single living intrauterine gestation. Fetus demonstrates a regular cardiac rate of 163 beats per minute. Fetus has a cephalic orientation. The placenta lies posterior. Amniotic fluid volume appears increased with an IMELDA of 29.1 cm. breathing movements, motion, and tone were all observed. IMPRESSION: 1. Single viable intrauterine with a biophysical profile 11/24. 2. Polyhydramnios with amniotic fluid index of 29.1 centimeters. This is similar to the prior exam (28.7 cm on 11/14). Dictated by Attila Marin MD @ 11/17/2024 12:13:25 PM (Electronically Signed)
== END 2024-11-17 11:35 | disposition home or self-care (01) ==
LOC: US 11:35
PROVIDERS: Visit Provider Obstetrics & Gynecology
DX: O28.8 Other abnormal findings on antenatal screening of mother (principal); O40.9XX0 Polyhydramnios, unspecified trimester, not applicable or unspecified
CPT/HCPCS: 76819

== ENCOUNTER 2024-11-21 13:00 | Outpatient (CLI) | payer MEDICAID, SELFPAY ==
--- NOTE | 2024-11-21 13:00 | CRLHL7_ITS ---
For Patients: As a result of the Cures Act, medical imaging exams and procedure reports are released immediately into your electronic medical record. You may view this report before your referring provider. If you have questions, please contact your health care provider. OB ULTRASOUND VITALIY by US: 12/28/2024. GA: 34 w, 5 d. Single. Comparison: 11/17/2024, 11/14/2024, 11/07/2024, 10/31/2024. INDICATION: induced gestational HTN. TECHNIQUE: Real time grayscale imaging of the fetus was performed. Transabdominal. CERVIX: Not visualized. POSITIONING: Vertex. AMNIOTIC FLUID: 25.5 cm IMELDA. 8.1 cm. SDP (N: greater than 2 x 1 cm) BIOPHYSICAL PROFILE: 2: Gross body movements 2: tone 2: Respiratory activity 2: Amniotic fluid SDP (N: greater than 2 x 1 cm) 8/8: Total score PLACENTA: Technique: Transabdominal. PLACENTA POSITION: Posterior. DOPPLER: heart rate: 163 bpm. IMPRESSION: 1. Normal biophysical profile score 8/8. 2. Amniotic fluid single deepest pocket 8.1 cm. IMELDA 25.5 cm. Jamar Birmingham M.D. Diagnostic Radiologist [email or web address] LAYA/sherif gorman/Dictated by: Jamar Birmingham MD @ 11/21/2024 5:31:00 PM (Electronically Signed)
== END 2024-11-21 13:01 | disposition home or self-care (01) ==
LOC: US 13:00
PROVIDERS: Visit Provider Obstetrics & Gynecology
DX: O13.9 Gestational [pregnancy-induced] hypertension without significant proteinuria, unspecified trimester (principal)
CPT/HCPCS: 76819; 80053

== ENCOUNTER 2024-11-21 13:00 | Outpatient (CLI) | payer MEDICAID, SELFPAY | END 2024-11-21 13:01 | disposition home or self-care (01) | LOC: NFLDREF 11-23 16:29 | PROVIDERS: Visit Provider Obstetrics & Gynecology | DX: O13.9 Gestational [pregnancy-induced] hypertension without significant proteinuria, unspecified trimester (principal) | CPT/HCPCS: 80053 ==

== ENCOUNTER 2024-11-28 12:51 | Outpatient (CLI) | payer MEDICAID, SELFPAY ==
--- NOTE | 2024-11-28 13:00 | CRLHL7_ITS ---
For Patients: As a result of the Century Cures Act, medical imaging exams and procedure reports are released immediately into your electronic medical record. You may view this report before your referring provider. If you have questions, please contact your health care provider. OB ULTRASOUND VITALIY by US: 12/28/2024. GA: 35 w, 5 d. Single. Comparison: 11/21/2024, 11/17/2024 11/14/2024, 11/07/2024. INDICATION: Early onset hypertension. TECHNIQUE: Real time grayscale imaging of the fetus was performed. Transabdominal. CERVIX: Not visualized. POSITIONING: Vertex. AMNIOTIC FLUID: 24.8 cm IMELDA. 8.7 cm. SDP (N: greater than 2 x 1 cm) BIOPHYSICAL PROFILE: 2: Gross body movements 2: tone 2: Respiratory activity 2: Amniotic fluid SDP (N: greater than 2 x 1 cm) 11/24: Total score PLACENTA: Technique: Transabdominal. PLACENTA POSITION: Posterior. DOPPLER: heart rate: 171 bpm. BIOMETRY: BPD: 9.5 cm. 39 w, 0 d, >97 percent. HC: 34.1 cm. 39 w, 2 d, 93.0 percent. AC: 35.7 cm. 39 w, 4 d, >97 percent. FL: 7.0 cm. 36 w, 0 d, 53.5 percent. FL/AC ratio: 19.7 percent. HC/AC ratio: 1.0. EFW: 3577 g. Weight: 7 lbs, 14 oz. age by this US: 38 w, 3 d. VITALIY by this US: 12/09/2024. Percentile by VITALIY: >97 percent. IMPRESSION: 1. Sonographic gestational age 38 weeks 3 days and sonographic due date 12/09/2024. Sonographic age is 19 days ahead of the clinical age. 2. Estimated weight greater than 97th percentile. Abdominal circumference and biparietal diameter greater than 97th percentile. 3. Amniotic fluid single deepest pocket 8.7 cm. IMELDA 24.8 cm. 4. Normal biophysical profile score 11/24. Jamar Birmingham M.D. Diagnostic Radiologist [email or web address] LAYA/sherif gorman/Dictated by: Jamar Birmingham MD @ 11/28/2024 2:17:00 PM (Electronically Signed)
== END 2024-11-28 12:52 | disposition home or self-care (01) ==
LOC: US 12:51
PROVIDERS: Visit Provider Obstetrics & Gynecology
DX: O13.3 Gestational [pregnancy-induced] hypertension without significant proteinuria, third trimester (principal); Z3A.35 35 weeks gestation of pregnancy
CPT/HCPCS: 76816; 76819; 80053

== ENCOUNTER 2024-12-05 12:08 | Outpatient (CLI) | payer MEDICAID, SELFPAY ==
--- NOTE | 2024-12-05 12:15 | CRLHL7_ITS ---
For Patients: As a result of the Cures Act, medical imaging exams and procedure reports are released immediately into your electronic medical record. You may view this report before your referring provider. If you have questions, please contact your health care provider. OB ULTRASOUND BIOPHYSICAL PROFILE TRANSABDOMINAL Clinical History: VITALIY by US: 12/28/2024. GA: 36 w, 5 d. Single. Comparison: 11/28/2024, 11/21/2024, 11/17/2024. INDICATION: Gestational induced hypertension. TECHNIQUE: Real time hastings scale imaging of the fetus was performed. Transabdominal imaging performed. CERVIX: Not visualized. POSITIONING: Vertex. AMNIOTIC FLUID: 7.5 cm SDP (N: greater than 2 x 1 cm) BIOPHYSICAL PROFILE: Gross body movements: 2. tone: 2. Respiratory activity: 0. Amniotic fluid: 2 SDP (N: greater than 2 x 1 cm). Total score: 6. PLACENTA: Technique: Transabdominal. PLACENTA POSITION: Posterior. DOPPLER: heart rate: 142 bpm. IMPRESSION: Biophysical profile 6/8. Respiratory activity not present for full 30 seconds. Jamar Birmingham M.D. Diagnostic Radiologist [email or web address] SP/Dictated by: Jamar Birmingham MD @ 12/06/2024 5:34:00 PM (Electronically Signed)
== END 2024-12-05 12:09 | disposition home or self-care (01) ==
LOC: US 12:09
PROVIDERS: Visit Provider Obstetrics & Gynecology
DX: O13.3 Gestational [pregnancy-induced] hypertension without significant proteinuria, third trimester (principal); Z3A.36 36 weeks gestation of pregnancy
CPT/HCPCS: 59025; 76819; 80053; G0463

== ENCOUNTER 2024-12-05 13:47 | Outpatient (CLI) | payer MEDICAID, SELFPAY ==
[2024-12-05 13:55] VITALS: PULSE 109; O2SAT 97
[2024-12-05 14:11] VITALS: BP 113/57; PULSE 100
[2024-12-05 14:27] VITALS: BP 131/60; PULSE 88
--- NOTE | 2024-12-05 15:10 | PC.OBNST ---
NST Note NST Note Start: 12/05/24 14:15 Freq: ONCE Status: Active Protocol: Document 12/05/24 14:59 TIFFANIE (Rec: 12/05/24 15:01 TIFFANIE Desktop) NST Note 2 Para (# of births) 1 EDC 12/28/24 Gestational Age In 36 Weeks & 5 Days Weeks & Days High Risk Factors High Blood Pressure - Gestational Other Complaints non reassuring NST, BPP Reactive Yes Appropriate for Yes Gestational Age RN Alejandra Renteria RN Date 12/05/24 Reactive Yes Appropriate for Yes Gestational Age SABA Davies OB Date 12/05/24 OB NST charge Yes Complete NST Note Yes via Write Note The provider's electronic signature indicates the NST is reactive/appropriate for gestational age. *Note to provider: If an addendum is required, open the patient's chart and click on the note under the Nurse/Allied Health tab.
== END 2024-12-05 14:51 | disposition home or self-care (01) ==
LOC: OB OUT 13:48 → OB 13:49
PROVIDERS: Visit Provider Obstetrics & Gynecology
DX: O13.3 Gestational [pregnancy-induced] hypertension without significant proteinuria, third trimester (principal); Z3A.36 36 weeks gestation of pregnancy
CPT/HCPCS: 59025; G0463

== ENCOUNTER 2024-12-06 17:07 | Inpatient (IN) | payer MEDICAID, SELFPAY ==
[2024-12-06] VITALS (8 sets, daily range): BP systolic 99–128; BP diastolic 53–76; PULSE 93–119; RESP 16; TEMP 36.4–36.5; O2SAT 94–98; BMI 45.1
--- NOTE | 2024-12-06 17:53 | P.LDBA_ITS ---
Subjective History of Present Illness Narrative: Patient is being admitted to Labor and Delivery for cervical ripening and induction of labor for indication of preeclampsia without severe features. She is a 24 year old at 36 weeks, 6 days gestation. Her full history and physical was dictated by Dr. Catalan on 12/05/2024. Please see this for details. Specific Issues/Plans Partner: Talha Pritchett Daughter: Jorden Baby: [] H&P: CGM 12/05/24 # Preeclampsia w/o severe features (elevated BP at 24wks). H/O GHTN. -Diagnosed on 09/12 w/ urine P/C 1.06 24 hour urine ordered but not completed. -Daily BP at home -Twice weekly testing - form completed 09/21/24 -PreE labs weekly -Serial growth US q3 weeks -Blue band given on 09/22/24 # Mild polyhydramnios - no change in antepartum testing already scheduled. Continue to monitor. * IMELDA 26.0 cm, SDP 8.4 cm on 10/31/24 * IMELDA 26.6 cm, SDP 8.9 cm on 11/07/24 * IMELDA 28.7cm, SDP 9.5cm on 11/14 * IMELDA: 25.5cm, SDP: 8.1cm on 11/21/24 * IMELDA: 24.8cm, SDP: 8.7cm 11/28/24 * SDP: 7.5cm, 12/05/24 #Suspected macrosomia: 11/28/24: EFW: 3577 g, more than the 97th percentile. # Short interval , last delivery 12/13/2023 # Varicose veins . * On 09/21,Normal left lower extremity venous ultrasound, no sign of deep venous thrombosis. * On 09/25, Superficial venous thrombosis in a left medial distal thigh varicose vein # Rh-negative RhoGAM: 10/10/2024 # obesity, BMI 33.8 Hemoglobin A1c:5.3 # anemia - 10.7 on 10/31 Start iron supplement, recheck with preE labs Imaging: anatomy scan 08/10/2024: EFW 89%, AC 79%. Fundal placenta. Normal fluid. Level 2 09/20: Normal visualized anatomy. EFW 1096g at 96%ile, AC 95%ile. Cx 35mm. Posterior placenta, no previa. MVP 5.8cm. Growth 10/10/2024: Vertex, BPP 8/8, EFW 3 lb 11 oz or 1662 g (>97%), BPD >97%, HC 92%, AC 93%, FL 84%, SDP 8.1 cm, IMELDA 20.5 cm 11/07/2024: BPP 8/8, vertex, mild polyhydramnios with SDP 8.9 cm and IMELDA 26.6 cm, EFW 2582 g or 5 lb 11 oz (96.4%), BPD 96%, HC 95%, AC >97%, FL 46% 11/28/24: Vertex, BPD: More than the 97th percentile, HC: At 93rd percentile, AC: More than the 97th percentile, FL: 53.5 percentile. EFW: 3577 g, more than the 97th percentile. Vaccinations: Covid: Discussed, recommended, declined Flu: Discussed, recommended, declined Tdap: 10/17/24 32 week mental health:10/31/24 Last pap: 06/01/23 OB - Problem Based A/P Additional Plan (1) Pre-eclampsia affecting , antepartum: Status: Acute (2) Polyhydramnios affecting : Status: Acute Plan Plan is for induction of labor for indication of preeclampsia without severe features. HELLP labs to be collected. Using aseptic technique, Cook catheter was placed through the endocervix into the lower uterine segment. Intrauterine and intravaginal balloons were inflated with a total of 60 mL of saline. Given that Fani is multiparous, I have opted to begin Pitocin augmentation of the usual doses at 3:00 a.m.. New line we will plan to leave the catheter in place until 6:20 a.m.. Thereafter, encouraged her to ambulate the promote descent of fetus into the pelvis. Continuous monitoring throughout Pitocin augmentation. She may use IV or IM medication for sleep and pain overnight. Delivery/Labor/Induction Plan Induction method: Intracervical balloon catheter OB Exam Physical Exam Vital signs: Temp Pulse BP Pulse Ox 97.6 F 114 H 117/68 98 12/06/24 17:18 12/06/24 17:18 12/06/24 17:18 12/06/24 17:16 Narrative: Physical exam: General: No acute distress Psych: Alert and oriented x3, full affect HEENT: Normocephalic, atraumatic Heart: Regular rate and rhythm, no murmur rub or gallop Lungs: Clear to auscultation bilaterally Abdomen: Soft, nontender, gravid, cephalic lie Lower extremities: No edema or erythema Pelvic exam: Cervix 1.5 cm, long, high, mid position, moderate consistency, fet al vertex is palpable through intact bag of water tracing: Baseline 145, accelerations present, no definite decelerations but areas of discontinuous tracing noted, moderate variability. Irregular contractions
[2024-12-06 19:13] LABS: Hematocrit 31.9 % (33.0-51.0); Hemoglobin* 10.6 gm/dL (12.0-16.0); Immature Granulocytes Abs Auto 0.03 K/uL (0.00-0.30); Immature Granulocytes Pct Auto 0.3 %; Mean Corpuscular HGB Conc 33 gm/dL (32-36); Mean Corpuscular Hemoglobin 29 pg (26-34); Mean Corpuscular Volume 86 fL (80-100); RDW Coefficient of Variation % 12.1 % (11.5-15.5); Red Blood Count 3.69 m/uL (4.00-5.20); White Blood Count* 8.62 K/uL (4.50-11.00)
[2024-12-06 19:18] LABS: Lymphocytes Absolute Auto 1.00 K/uL (0.90-2.90)
[2024-12-06 19:19] LABS: Slide Review Reflex No
[2024-12-06 19:34] LABS: Alanine Aminotransferase* 12 U/L (4-35); Aspartate Amino Transferase* 18 U/L (12-35); Blood Urea Nitrogen* 10 mg/dL (5-24); Creatinine* 0.6 mg/dL (0.5-1.5); Est. Creatinine Clearance* 123.77; Estimated Glomerular Filt Rate 128 ml/min
[2024-12-07] VITALS (141 sets, daily range): BP systolic 95–140; BP diastolic 52–81; PULSE 80–213; RESP 12–24; TEMP 36.5–37.1; O2SAT 82–100
[2024-12-07] MEDS: ONDANSETRON 2 MG/ML inj 4 MG IV ×2 (01:17→15:49)
[2024-12-07] MEDS: LACTATED RINGERS 1000 ML 1,000 ML 125 ML IV (03:13)
[2024-12-07] MEDS: OXYTOCIN 30 unit/500 ML in NS 30 UNIT/500 ML BAG IVPB (03:14)
--- NOTE | 2024-12-07 08:48 | PM.OBPNL ---
Subjective Time Seen by Provider: 08:48 Date Seen: 12/07/24 Narrative: Subjective: The patient is comfortable, not feeling her contractions. Pitocin: 5 milliunits/minute. Verbal consent obtained for AROM. Planning epidural as soon as the patient starts to feel uncomfortable due to history of a spinal cage due to a fracture in her back. Vital signs: Per electronic medical record. EFM: Baseline 130s, positive accelerations, no decelerations, moderate variability, reactive. Category 1. [place]: Contractions every 2-5 minutes. SVE: 5 cm/70 %/-2. AROM at 8:45 a.m., clear fluid. Assessment: 24-year-old 2 para 1 at 37 weeks 0 days gestation induction of labor for preeclampsia without severe features Plan: 1. Continue Pitocin per labor induction protocol. 2. Wants epidural for labor analgesia. 3. GBS status pending Objective Vital Signs: Last Vital Signs Temp 98 F 12/07/24 07:28 Pulse 94 12/07/24 08:31 Resp 16 12/07/24 08:31 BP 119/62 12/07/24 08:31 Pulse Ox 100 12/07/24 08:31
[2024-12-07] MEDS: LIDOCAINE 2% (PF) 5 ML VIAL EPIDURAL (10:45)
[2024-12-07] MEDS: LACTATED RINGERS 1000 ML 1,000 ML 500 ML IV (10:50)
[2024-12-07] MEDS: ROPIVACAINE 0.2% 100 ml 100 ML 12 MG EPIDURAL (10:54)
--- NOTE | 2024-12-07 11:07 | PM.ANBPRC ---
[facility] Medical History Perineal laceration during delivery (12/13/23) ?O70.9 - Perineal laceration during delivery, unspecified (ICD-10) GERD (gastroesophageal reflux disease) ?K21.9 - Gastro-esophageal reflux disease without esophagitis (ICD-10) Back pain affecting ?O99.891 - Other specified diseases and conditions complicating (ICD-10) ?M54.9 - Dorsalgia, unspecified (ICD-10) Rh negative status during ?O26.899 - Other specified related conditions, unspecified trimester (ICD-10) ?Z67.91 - Unspecified blood type, rh negative (ICD-10) Anxiety and depression ?F41.9 - Anxiety disorder, unspecified (ICD-10) ?F32.A - Depression, unspecified (ICD-10) Surgical History H/O Spinal surgery ?Z98.890 - Other specified postprocedural states (ICD-10) Social History Narrative: SOCIAL HISTORY: 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 Marital status: Significant other. Hoahaoism/cultural needs: no. Chemical or radiation exposure: no. Pre- tobacco use: no. Pre- alcohol use: no. Current tobacco use: no. Current alcohol use: no. Recreational drug use: no. Dietary restrictions: no. Blood transfusion acceptable in an emergency: yes. PSYCHOSOCIAL HISTORY: History of depression or currently depressed: Yes, history. Current or past physical, emotional, or sexual mistreatment: Denies. Problems that will make it hard to make it to appointments: Denies. What is your current living situation?: I presently have a place to live Problems where you live: no known problems In the past 12 months, utilities in danger of being shut off: no In past 12 months, lack of transportation kept you from medical appts, meetings, work, or getting things needed for daily living: no In the past 12 mos, have been you worried that your food would run out before you had money to buy more?: never true In the past 12 mos, the food you bought just didn't last and you didn't have money to buy more?: never true Smoking Status: Never smoker How often does anyone, including family, friends and others, physically hurt you: never How often does anyone, including family, friends and others, insult or talk down to you: never How often does anyone, including family, friends and others, threaten you with harm: never How often does anyone, including family, friends and others, scream or curse at you: never Meds Home Medications and Allergies Home Medications ?Medication ?Instructions ?Recorded ?Confirmed ?Type PNV 86-iron ps 32 mg iron-folic 1 See Rx Instructions PO PER PKG DIR 12/15/23 12/06/24 Rx mg-dha 120 mg-epa 180 mg oral pack 360 days #90 ea promethazine 12.5 mg tablet 25 mg (2 x 12.5 mg) PO Q6H PRN 09/26/24 12/06/24 Rx nausea and vomiting #30 tabs Allergies Allergy/AdvReac Type Severity Reaction Status Date / Time No Known Drug Allergies Allergy Verified 12/05/24 13:02 Results Labs Labs: Laboratory Results - last 24 hr 12/06/24 18:55 WBC 8.62 RBC 3.69 L Hgb 10.6 L Hct 31.9 L MCV 86 MCH 29 MCHC 33 RDW Coeff of Helga 12.1 Plt Count 198 Neut % (Auto) 78.5 H Lymph % (Auto) 11.7 L [place] % (Auto) 9.3 Eos % (Auto) 0.0 Baso % (Auto) 0.2 Neut # (Auto) 6.80 Lymph # (Auto) 1.00 [place] # (Auto) 0.80 Eos # (Auto) 0.00 Baso # (Auto) 0.02 Abs Immat Gran (auto) 0.03 Imm/Tot Granulo (auto) 0.3 BUN 10 Creatinine 0.6 Estimated Creat Clear 123.77 Estimated GFR 128 AST 18 ALT 12 Blood Type B Negative Antibody Screen POSITIVE Vital Signs Vital Signs: Last Vital Signs Temp 97.9 F 12/07/24 08:50 Pulse 108 H 12/07/24 11:06 Resp 16 12/07/24 08:31 BP 126/64 12/07/24 11:06 Pulse Ox 98 08/21/25 11:05 Weight: 119.204 kg Height: 162.56 cm Anesthesia Procedures Epidural Insertion Start Time: 10:00 Stop Time: 11:00 Start Date: 12/07/24 Stop Date: 12/07/24 Reason for Block: primary anesthetic Patient Position: sitting Performed By: Mervin Rivera Preanesthetic Checklist: risks and benefits discussed and anesthesia consent Prep: chlorhexidine gluconate Monitoring: blood pressure monitoring and continuous pulse oximetry Approach: midline Vertebral Space: lumbar (1-5) Epidural Technique: FABIOLA saline Needle Type: Tuohy needle Injection Technique: continuous catheter Needle gauge: 17 Needle Length (cm): 10 cm Needle Insertion Depth (cm): 9 Catheter Gauge: 19 Catheter Type: multi-orifice Catheter at skin depth (cm): 12 Test Dose Result: negative and lidocaine 1.5% with epinephrine 1 to 200,000 Events: injection resistance
--- NOTE | 2024-12-07 13:47 | P.OBPN_ITS ---
Subjective Time Seen by Provider: 13:40 Date Seen: 12/07/24 Narrative: Subjective: Fani is comfortable with an epidural. Pitocin: 10 milliunits/minute. Vital signs: Per electronic medical record. EFM: Baseline 140. Accelerations: Present. Intermittent variable decelerations lasting less than 15 seconds, moderate variability, reactive. Category 2. [place]: Contractions every 2-3 minutes. SVE: 8 cm/100 %/0. Assessment: 24-year-old 2 para 1 at 37 weeks 0 days gestation undergoing induction of labor for preeclampsia without severe features Plan: 1. Continue Pitocin per labor induction protocol. 2. Continue active management of labor and expect vaginal delivery. Objective Vital Signs: Last Vital Signs Temp 98.3 F 12/07/24 13:20 Pulse 97 12/07/24 13:43 Resp 16 12/07/24 13:27 BP 109/56 L 12/07/24 13:43 Pulse Ox 96 12/07/24 13:42
[2024-12-07] MEDS: miSOPROStoL 800 MCG/4 TABLET PR (14:49)
[2024-12-07] MEDS: CARBOPROST TROMETHAMINE 250 MCG/ML INJ IM (14:57)
[2024-12-07] MEDS: LOPERAMIDE HCL 2 MG CAPSULE 4 MG PO (14:57)
[2024-12-07] MEDS: CEFAZOLIN 2 GM in 0.9 % SODIUM CHLORIDE Mini-bag 100 ML IVPB (15:10)
[2024-12-07] MEDS: TRANEXAMIC ACID 100 MG/ML INJ 1000 MG IV (15:22)
--- NOTE | 2024-12-07 15:36 | W.PM.OBVAGDE ---
OB Procedure Vag Delivery Mother Details Mother Details: Fani is a 24 year-old G 2 P 1 now to admitted on 12/06/2024 at 4:30 p.m. at 36 Weeks, 6 Days gestation for scheduled induction of labor due to preeclampsia without severe features. AROM occurred at 8:48 a.m. on 12/07/2024 with clear fluid. Labor Analgesia: Epidural Pitocin: Yes Labor onset: 12/07/2024 at 10:30 a.m.. Complete: 12/07/2024 at 2:17 p.m.. The Marley catheter was removed at 2:20 p.m. Pushin12/07/2024 at 2:25 p.m.. heart tones during second stage were: Category 2 with moderate variability and and variable decelerations to the 100s with contractions with immediate return to baseline. At 2:35 p.m. a viable male infant delivered in vertex direct OA presentation over first-degree perineal laceration via spontaneous vaginal delivery. The was placed on maternal abdomen. Cord was clamped and cut after a 120 second delay. Nose and mouth were bulb suctioned. Infant weight pending. 6 at 1 minute and 8 at 5 minutes. Shoulder dystocia: No. Nuchal cord: Single nuchal cord easily reduced prior to delivery of the infant's shoulders. The infant was noted to have some retractions and was taken to the warmer for stabilization. CPAP was used. Please see stabilization notes. Placenta delivered spontaneously and complete at 2:40 p.m. with a 3 vessel cord. There was noted to be significant uterine atony after delivery of the placenta. This was treated with 30 units Pitocin in 500 mL IV fluid wide open, 1 g TXA IV, Cytotec 800 mg p.r., 0.25 mg Hemabate IM x1 with continued uterine atony identified. A uterine sweep to clear clots out of the uterus was performed 4 times with return to atony within 1-2 minutes after clots removed. A Sepideh device was placed the bleeding slowed almost immediately after placement of the Sepideh. The patient remained conscious and was talking throughout the treatment of uterine atony with the delivering physician. Her vital signs remained normal throughout her labor, delivery and course. Laceration(s): First-degree perineal. Repaired using 4-0 Vicryl suture in the usual manner. Blood loss: 918 mL. Blood loss measurement type: Quantitative Sponge and needles counts are correct. Specimen: Placenta Mother and were stable after delivery. 's name: Sherley The patient is planning on [breast/bottle] feeding. : 2 Para: 1 Weeks Gestation: 37 Admission Date: 12/06/24 Additional Details Amniotic Membrane Status: AROM Amniotic Membrane Rupture Date: 12/07/24 Amniotic Membrane Rupture Time: 08:46 Amniotic Membrane Fluid Description: Clear Analgesia/Anesthesia Type: Epidural Waterbirth: No Pitcoin: Yes Intrapartal Events: Excessive Bleeding Induction Method: Intracervical balloon catheter, per pitocin protocol and AROM Labor Onset: 10:30 Complete: 14:17 Pushin:25 Delivery Details Delivery Date: 12/07/24 Delivery Time: 14:35 Route of delivery: Gender: Male Viability: Alive; Heart Rate Present Position at Delivery: OA 1 Minute Interval Total Score: 6 5 Minute Interval Total Score: 8 Additional Details Shoulder Dystocia: No Placenta Delivery Time: 14:40 Placental Delivery Description: Spontaneous Delivery repair: Vicryl Procedure Done: Global Blood Loss: 918 Laceration: Perineal - 1st Degree Blood Loss Measurement Type: QBL Bakri Used: No (But Sepideh placed at approximately 3Pm) Sponge/Need Count Correct: Yes Cord Vessel Description: 3 Vessels Event Summary Status: Mother was stable after delivery. The was being evaluated by DWAYNE Barakat at the time this note was completed. Disposition: floor
[2024-12-07] MEDS: IBUPROFEN 600 MG TABLET PO (16:33)
[2024-12-07 18:45] LABS: Strep B DNA Probe Negative (Negative)
[2024-12-07 19:43] LABS: Strep B Susceptibility Needed? No
[2024-12-07] MEDS: ACETAMINOPHEN 500 MG TABLET 1000 MG PO (19:55)
[2024-12-08 00:02] VITALS: BP 100/65; PULSE 79; RESP 18; TEMP 36.6; O2SAT 93
[2024-12-08 04:09] VITALS: BP 117/74; PULSE 71; RESP 16; O2SAT 96
[2024-12-08 06:36] LABS: Hematocrit 32.1 % (33.0-51.0); Hemoglobin* 10.4 gm/dL (12.0-16.0); Mean Corpuscular HGB Conc 32 gm/dL (32-36); Mean Corpuscular Hemoglobin 28 pg (26-34); Mean Corpuscular Volume 88 fL (80-100); Red Blood Count 3.66 m/uL (4.00-5.20); White Blood Count* 10.74 K/uL (4.50-11.00)
[2024-12-08 06:38] LABS: Slide Review Reflex No
[2024-12-08 06:41] LABS: Alanine Aminotransferase* 15 U/L (4-35); Aspartate Amino Transferase* 25 U/L (12-35); Creatinine* 0.6 mg/dL (0.5-1.5); Est. Creatinine Clearance* 123.77; Estimated Glomerular Filt Rate 128 ml/min
[2024-12-08 07:49] VITALS: BP 123/85; PULSE 86; RESP 12; TEMP 36.8; O2SAT 99
[2024-12-08] MEDS: DOCUSATE SODIUM 100 MG CAPSULE PO (07:53)
[2024-12-08] MEDS: IBUPROFEN 600 MG TABLET PO ×2 (08:37→16:33)
[2024-12-08] MEDS: SODIUM CHLORIDE 0.9 % (FLUSH) 10 ML SYRINGE IVF (10:08)
[2024-12-08 12:11] VITALS: BP 117/81; PULSE 88; RESP 12; TEMP 36.3; O2SAT 97
--- NOTE | 2024-12-08 15:58 | PM.OBPNVD1 ---
OB - PN:Subj Subjective Time Seen by Provider: 15:45 Date Seen: 12/08/24 Patient comments OB post-: pain well controlled Cascade status: other (needing extra monitoring and IV dextrose) Cascade feeding status: other (IV only for now) Narrative: Resting in bed with partner. Baby in warmer on monitor. Feeling pretty good. Nurse and patient say bleeding has decreased quite a bit since last night. Not passing any clots today. No c/o lightheaded, dizziness, or fatigue. Just tired from just having a baby. Only complaint is back pain at this time. Patient does have chronic back pain and epidural made it more sore. She brought to our attention blood clot behind left knee. It is superficial in varicose vein and in exactly the same spot as a couple months ago. At that time it got to golfball size. Now is marble size. Encouraged thigh high compression socks which she has. Patient is voiding and has had a bowel movement since . Blood pressure stable. She is using breast pump and plans to breastfeed when baby is able. No problems at this time. Reminded of support available. Plans to use condoms to space in future. OB - PN: Obj Exam Physical Exam: Vital signs: Temp Pulse Resp BP Pulse Ox O2 Del Method 97.4 F L 88 12 117/81 97 Room Air 12/08/24 12:11 12/08/24 12:11 12/08/24 12:11 12/08/24 12:11 12/08/24 12:11 12/08/24 12:11 Narrative: Constitutional: no acute distress, obese Cardiovascular: heart rate and rhythm normal Respiratory: lung sounds clear, no SOB Genitourinary: -1 fingerbreaths below umbilicus. Moderate amount rubra on peripad which has been in place for about 2 hours. Declined assessment of 1st degreevaginal tear Extremities: no swelling. blood clot behind left knee in superficial varicose vein, palpated marble size Neuro: sensation intact Psych: stable mood OB - PN: Obj Data Labs Labs: Laboratory Results - last 24 hr 12/06/24 12/06/24 12/08/24 18:36 18:55 06:20 WBC 10.74 RBC 3.66 L Hgb 10.4 L Hct 32.1 L MCV 88 MCH 28 MCHC 32 Plt Count 181 Creatinine 0.6 Estimated Creat Clear 123.77 Estimated GFR 128 AST 25 ALT 15 RPR Screen Non Reactive Group B Strep DNA Negative Antibody Identification Anti-D Screen Negative OB - PN: A/P Delivery Assessment and Plan (1) normal course: Status: Acute (2) Pre-eclampsia affecting , antepartum: Status: Acute (3) hemorrhage: Problem details: [place]: TXA 1g, IV pitocin, hemabate x1, cytotec 800mg MS, Sepideh inserted. QBL 918mL Status: Acute (4) Varicose vein of leg, : Problem details: left leg behind knee Status: Acute Plan Routine care Patient to notify if blood clot in LLE gets painful, red streaks down leg Continue with breast pump or hand expression until baby ready to nurse Likely discharge tomorrow if baby is stable Plan day: 1 Plan: routine care
[2024-12-08 16:23] VITALS: BP 129/85; PULSE 105; RESP 16; TEMP 36.4; O2SAT 96
[2024-12-08 19:32] VITALS: BP 102/67; PULSE 80; RESP 20; O2SAT 96
[2024-12-09] VITALS: BP 121/81; PULSE 81; RESP 18; O2SAT 97
[2024-12-09 04:05] VITALS: BP 127/77; PULSE 79; RESP 18; TEMP 36.3; O2SAT 97
[2024-12-09 07:59] VITALS: BP 123/86; PULSE 77; RESP 12; TEMP 36.6; O2SAT 99
[2024-12-09] MEDS: DOCUSATE SODIUM 100 MG CAPSULE PO (08:25)
[2024-12-09] MEDS: IBUPROFEN 600 MG TABLET PO (08:25)
--- NOTE | 2024-12-09 08:50 | P.DS_ITS ---
DS: Providers Provider Date Seen: 12/09/24 Date of admission: 12/06/24 17:07 Primary care physician: Not a Local Provider Admitting Clinician: Yulia Bullock MD Attending Physician on discharge: Yara Goldstein MD Exam Narrative: Exam Narrative: General: Alert and oriented, no acute distress Psych: Appropriate mood and affect Abdomen: Soft, nondistended and nontender to palpation throughout. Fundus palpates firm 1 below umbilicus. Extremities: 1+ pitting edema bilaterally. No calf erythema or tenderness. Const: Vital Signs, click to edit/add: Vital Signs - 24 hr 12/08/24 12:11 12/08/24 16:23 12/08/24 19:32 Temperature 97.4 F L 97.6 F Pulse Rate [Left P ulse Oximeter] 88 105 H 80 Respiratory Rate 12 16 20 Blood Pressure [Le ft Arm] 117/81 129/85 102/67 Pulse Oximetry 97 96 96 Oxygen Delivery Me thod Room Air Room Air Room Air 12/09/24 00:00 12/09/24 04:05 12/09/24 07:59 Temperature 97.4 F L 98 F Pulse Rate [Left P ulse Oximeter] 81 79 77 Respiratory Rate 18 18 12 Blood Pressure [Le ft Arm] 121/81 127/77 123/86 Pulse Oximetry 97 97 99 Oxygen Delivery Me thod Room Air Room Air Room Air OB - DS: Summary Hospital Course Hospital Course: The patient is a 24 year old G 2 P 2 at 37 weeks gestation that was admitted to the Center on 12/06/24 for induction of labor in the setting of preeclampsia without severe features. She had a vaginal delivery, complicated by hemorrhage requiring uterotonics and Sepideh. She delivered a viable male . She is breast feeding. the patient has done well. Vital signs have remained entirely within normal limits. Postoperative labs have been reassuring, with last hemoglobin stable at 10.4. Fani notes she is feeling very well. She denies any significant pain. No perineum concerns. Eating and drinking without difficulty, no nausea or vomiting. Lochia is described as scant. She is voiding spontaneously, passing gas and BM x1. Ambulates without difficulty, no dizziness/lightheadedness, chest pain or dyspnea. No fever/chills. Denies headaches, vision changes or right upper quadrant pain. She is breast-feeding successfully. Baby Boy is currently on oxygen, expected to remain inpatient after Fani discharges for his medical cares. She is doing well emotionally. Peripartum Data delivery method: Vaginal [place] Gender: Male Time Spent with Patient Time attestation: Total time spent providing and/or coordinating discharge services: Time spent: Less than 30 minutes Discharge Plan Discharge Disposition: Home, Self-Care Date of Admission: 12/06/24 17:07 Consulting Providers: Sophie Miller Primary Care Provider: Provider,Not a Local Condition: Stable Anticipated Discharge Date/Time: 12/09/24 08:54 Discharge Medications: New acetaminophen 500 mg Tablet 1,000 mg PO Q6H PRNQty: 0 0RF docusate sodium 100 mg Capsule 100 mg PO DAILY Qty: 0 0RF ibuprofen 600 mg Tablet 600 mg PO Q6H PRNQty: 0 0RF Continued promethazine 12.5 mg tablet 25 mg PO Q6H PRN (Reason: nausea and vomiting) Qty: 30 1RF 24-pbzf-dhxyd-dha-epa 32 mg iron-1 mg -120 mg-180 mg combo pack See Rx Instructions PO PER PKG DIR 360 Days Qty: 90 3RF Rx Instructions: PO PER PKG DIR Discharge Orders: Discharge Order (Routine); Ordered 12/09/24 Ordered By: Dana Goldstein Additional Instructions: Discharge instructions were reviewed with the patient including signs and symptoms of infection and home going medications Nothing vaginally for 6 weeks: no tampons or intercourse Do not drive while taking narcotic pain medication(s) Off Work or School for 8 weeks Symptoms to report to doctor: * Bleeding that saturates more than one pad per hour * Passing clots larger than the size of a golf ball * Pain not relieved by prescribed medication * Fever above 100.4 degrees Fahrenheit * A foul vaginal odor * Difficulty in emotions, mood, and functions * Thoughts of hurting yourself and/or * Painful, reddened area in your breast * Any drainage, redness, or tenderness in your IV/epidural site * Severe headache that doesn't improve after taking medications * Changes in vision, including temporary loss of vision, blurred vision, and/or light sensitivity * Upper abdominal pain (usually under ribs on the right side) * Decrease in urination or painful, frequent urinating * Chest pain * Shortness of breath * Tenderness or pain with redness and/swelling in the calf(s) of your leg Please call the clinic to schedule a follow up [facility] for a RN BP check?in 3-5 days. Call with BP greater than or equal to 160/110 Optional 2-week visit: discuss feeding concerns, review control options and screen for anxiety/depression. 6-week visit for an annual exam. consultation services are available to all mothers and babies for the first year after delivery.? To make an appointment, please call [phone]. Follow Up Appointments: Provider,Not a Local [Primary Care Provider, Family Practice] Forms: Patient Belongings, [facility] Info Instructions
== END 2024-12-09 11:16 | disposition home or self-care (01) | DRG 768 ==
PROVIDERS: Obstetrics & Gynecology; Admitting Provider Obstetrics & Gynecology; Visit Provider Obstetrics & Gynecology
DX: O14.04 Mild to moderate pre-eclampsia, complicating childbirth (principal); Z37.0 Single live birth; O72.1 Other immediate postpartum hemorrhage; O87.4 Varicose veins of lower extremity in the puerperium; I83.92 Asymptomatic varicose veins of left lower extremity; O70.0 First degree perineal laceration during delivery; O40.3XX0 Polyhydramnios, third trimester, not applicable or unspecified; O26.893 Other specified pregnancy related conditions, third trimester; Z67.21 Type B blood, Rh negative; G89.29 Other chronic pain; M54.9 Dorsalgia, unspecified; Z3A.36 36 weeks gestation of pregnancy
CPT/HCPCS: 01967; 36415; 59200; 82565; 84450; 84460; 84520; 85025; 85027; 85461; 86592; 86850; 86870; 86880; 86900; 86901; 87081; 87653; 88307; A9270; C1726; J0690; J2270; J2405; J2795; J3010; J7120

== ENCOUNTER 2024-12-12 10:34 | Inpatient (IN) | payer MEDICAID, SELFPAY ==
[2024-12-12] VITALS (31 sets, daily range): BP systolic 99–150; BP diastolic 63–92; PULSE 51–107; RESP 12–24; TEMP 36.4–36.7; O2SAT 92–98; BMI 42.2
--- OUTSIDE RECORDS SUMMARY | 2024-12-12 10:37 | XMS_ITS | Clinical Summary ---
Author Organization [facility] Address [address] [place] [address] Care Team Providers Care Miner Placer Name Role Phone Unassigned, Provider Primary Care Provider Unava ilable Source Comments You are receiving this document as you are listed as the primary care provider,follow-up provider, or the patient has been referred to you for consultation.This is in compliance with the Medicare and[facility] EHR Incentive Program,which states Providers who transition their patient to another setting of careor provider of care or refers their patient to another provider of care shouldprovide summary care record for each transition of care or referral. [facility] Allergies No known active allergies Medications No [...] 36.3 C (97.3 F) 06/23/2022 5:43 PM RESTAURANT LEAD Respiratory Rate - - Oxygen Saturation - - Inhaled Oxygen Concentration - - Weight 71.7 kg (158 lb 1 oz) 06/23/2022 5:43 PM RESTAURANT LEAD Height 167.6 cm (5' 6) 06/23/2022 5:43 PM RESTAURANT LEAD Body Mass Index 25.51 06/23/2022 5:43 PM RESTAURANT LEAD Plan of Treatment Health Maintenance Due Date Last Done Comments Cervical Cancer Screening Due 1999 Chlamydia 1999 Hep C Screening (Preventive Services) 1999 HIV Screening (Preventive Services) 2015 Adult Preventive Visit 2017 HepB Vaccine (1) 2018 COVID-19 Vaccine ( season) 2023 07/12/2020, 06/13/2020 Influenza Vaccine (#1) 2024 7, 03/22/2017, 01/16/2013, Additional history exists DTaP/Tdap/Td Vaccine [...] age to complete this topic Care Teams Miner Placer Relationship Specialty Start Date End Date Unassigned, Provider [address] [place] [id number] PCP - General 01/12/00
--- OUTSIDE RECORDS SUMMARY | 2024-12-12 10:37 | XMS_ITS | Clinical Summary ---
Author Organization 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. For routine questions regarding patient records, call [phone] during business hours, M-F 8:00 AM - 5:00 PM Central Time. Record requests for emergency care only can be directed to [phone] at any time.[facility] Allergies No known active allergies Medications PNV 08-[id number]-vifsmlonqqq e-dha 29 mg iron-1 mg -350 mg [...] 0.6 oz pur e alcohol) [facility] Utilities Answer Date Recorded In the past 12 months has th e [employer], gas, oil, or water [employer] threatened to shut off services in your [...] your living situation today? I have a [facility] place to live 08/11/2023 Comments No Sex and Gender Information Value Date Recorded Sex Assigned at Female 08/15/2023 5:03 PM CDT Legal Sex Female 7:03 PM INSPECTOR AIDE Gender Identity Female 08/15/2023 5:03 PM CDT Sexual Orientation Choose not to disclose 2023 5:03 PM CDT Last Filed Vital Signs Vital Sign Reading Time Taken Comments Blood Pressure 117/79 08/16/2023 3:09 PM CDT Pulse 103 08/16/2023 3:09 PM CDT Temperature 36.1 C (97 F) 06/25/2023 2:33 PM INSPECTOR AIDE Respiratory Rate 14 06/14/2023 3:33 PM INSPECTOR AIDE Oxygen Saturation 98% 06/25/2023 2:33 PM INSPECTOR AIDE Inhaled Oxygen Concentration - - Weight 95 kg (209 lb 6.4 oz) 08/16/2023 3:09 PM CDT Height 164 cm (5' 4.57) 06/15/2023 3:48 PM INSPECTOR AIDE Body Mass Index 35.31 06/15/2023 3:48 PM INSPECTOR AIDE Plan of Treatment Health Maintenance Due Date Last Done Comments Depression Monitoring (PHQ-9) 09/30/2023 06/01/2023 COVID-19 Vaccine ( season) 2023 07/12/2020, 06/13/2020 Depression Monitoring (PHQ-9 for quality tracking) 04/19/2024 Influenza Vaccine (#1) 2024 7, 03/22/2017, 01/16/2013 Cervical/Vaginal Cancer Screening 06/01/2026 06/01/2023 DTaP,Tdap,and Td [...] SCRN , S Routine 06/01/2023 10:15 AM INSPECTOR AIDE Examination Normal First First Trimester (HCC) HIV-1/-2 AG AND AB SCRN, PLASMA Routine 06/01/2023 10:15 AM INSPECTOR AIDE Examination Normal First First Trimester (HCC) THINPREP SCREEN HPV REFLEX Routine 06/01/2023 9:24 AM INSPECTOR AIDE Examination Normal First First Trimester (HCC) CHLAMYDIA/GONORRHOE AE AMPLIFIED RNA Routine 06/01/2023 9:23 AM INSPECTOR AIDE Examination Normal First First Trimester (HCC) from Last 3 Months or Most Recently Relevant to Health Maintenance Results * Hepatitis C Virus Antibody Screen (06/01/2023 10:15 AM INSPECTOR AIDE) HCV Ab Scrn , S Negative Negative 06/02/2023 8:43 AM INSPECTOR AIDE [facility] Comment:Glgizq-nr-dnnsvv rat io is <1.00. Blood (Blood, Venous) 06/01/2023 10:15 AM INSPECTOR AIDE 06/02/2023 7:30 AM INSPECTOR AIDE us Valerie Fuentes APRN C.N.P., M.S.N. LAB MICROBIO LOGY - BLOOD ORDERABLES Final Result [facility] [address] [address] [facility] [address] [place] [address] * HIV-1/-2 Ag and Ab Scrn, Plasma (06/01/2023 10:15 AM INSPECTOR AIDE) HIV Ag/Ab Scrn, P Negative Negative 06/01/2023 7:40 PM INSPECTOR AIDE [facility] Comment: Negative result does not rule out HIV infection. If exposure to HIV infection occurred <14 days ago, contact the laboratory to request addition of HIV-1/HIV-2 RNA detection , Plasma (HPP12). HIV-1 p24 Ag Scrn, P Negative Negative 06/01/2023 7:40 PM INSPECTOR AIDE [facility] Comment: Negative result does not rule out HIV infection. If exposure to HIV infection occurred <14 days ago, contact the laboratory to request addition of HIV-1/HIV-2 RNA detection , Plasma (HPP12). HIV-1 Ab Scrn, P Negative Negative 06/01/2023 7:40 PM INSPECTOR AIDE [facility] Comment: Negative result does not rule out HIV infection. If exposure to HIV infection occurred <14 days ago, contact the laboratory to request addition of HIV-1/HIV-2 RNA detection , Plasma (HPP12). HIV-2 Ab Scrn, P Negative Negative 06/01/2023 7:40 PM INSPECTOR AIDE [facility] Comment: Negative result does not rule out HIV infection. If exposure to HIV infection occurred <14 days ago, contact the laboratory to request addition of HIV-1/HIV-2 RNA detection , Plasma (HPP12). Blood (Blood, Venous) 06/01/2023 10:15 AM INSPECTOR AIDE 06/01/2023 6:09 PM INSPECTOR AIDE us Valerie Fuentes APRN, C.N.P., M.S.N. LAB MICROBIO LOGY - BLOOD ORDERABLES Final Result [facility] [address] [place] [id number], [facility] [address] [place] [id number] * ThinPrep Screen HPV Reflex (06/01/2023 9:24 AM INSPECTOR AIDE) 06/04/2023 1:51 PM INSPECTOR AIDE [facility] Report electronically signed by Kori Calhoun MD I verify that I have examined all relevant slides/materials for the specimen(s) and rendered or confirmed the diagnosis. 06/04/2023 1:51 PM INSPECTOR AIDE [facility] Gross Description Received specimen in a ThinPrep vial. 06/04/2023 1:51 PM INSPECTOR AIDE [facility] Pap Test Source Cervical/Endocervi adria 06/04/2023 1:51 PM INSPECTOR AIDE [facility] Hormone Therapy/Contracep tives None/Not known 06/04/2023 1:51 PM INSPECTOR AIDE [facility] Interpretation Cervical/Endocervi adria (ThinPrep): Satisfactory for Evaluation Negative for Intraepithelial Lesion or Malignancy Reactive cellular changes associated with: Reparative or inflammatory changes Shift in cassie suggestive of bacterial vaginosis 06/04/2023 1:51 PM INSPECTOR AIDE [facility] Thin Prep Vial (Cervix/Endocerv ix) 06/01/2023 9:24 AM INSPECTOR AIDE 06/02/2023 7:58 AM INSPECTOR AIDE us Kiara Jacome APRN.N.Shaq., M.S.N. LAB PAP PATH DX ORDERABLES Final Result Performing Organization Address City/[facility]/ZIP Co de Phone Number [facility] [address] [place] [address], [place] [facility] [address] [place] [address] * Chlamydia / Gonorrhoeae Amplified RNA (06/01/2023 9:23 AM INSPECTOR AIDE) Source Swab, Vagina 06/01/2023 11:45 PM INSPECTOR AIDE [facility] Chlamydia trachomatis amplified RNA Negative Negative 06/01/2023 11:45 PM INSPECTOR AIDE [facility] Source Swab, Vagina 06/01/2023 11:45 PM INSPECTOR AIDE [facility] Neisseria gonorrhoeae amplified RNA Negative Negative 06/01/2023 11:45 PM INSPECTOR AIDE [facility] Swab (Vagina) 06/01/2023 9:2 3 AM INSPECTOR AIDE 06/01/2023 2:51 PM INSPECTOR AIDE us Kiara Jacome APRN.N.P., M.S.N. LAB MICROBIOLOGY - GENERAL ORDERABLES Final Result [facility] [address] [place] [address], [facility] [address] [facility] [address] [place] [phone] from Last 3 Months or Most Recently Relevant to Health Maintenance Insurance * Guarantor: Fani Hu Account Type Relation to Patient Date of Phone Billing Address Personal/Family Self [phone] [facility] [address] [place] [address] [facility] Care Teams Restaurant District Manager Relationship Specialty Start Date End Date Elsewhere, Pcp PCP - General 11/24/21
--- OUTSIDE RECORDS SUMMARY | 2024-12-12 10:37 | XMS_ITS | Clinical Summary ---
Author Organization [place] Address [address] [place] [id number] Care Team Providers Care Attendance Clerk Name Role Phone No Ref-Primary, Physician [...] Comments Blood Pressure 110/72 04/26/2023 3:22 PM CARDROOM DRAWING RUNNER Pulse 92 04/26/2023 3:22 PM CARDROOM DRAWING RUNNER Temperature 37.4 C (99.4 F) 04/26/2023 3:22 PM CARDROOM DRAWING RUNNER Respiratory Rate 16 04/26/2023 3:22 PM CARDROOM DRAWING RUNNER Oxygen Saturation 98% 04/26/2023 3:22 PM CARDROOM DRAWING RUNNER Inhaled Oxygen Concentration - - Weight 77.6 kg (171 lb) 04/26/2023 3:22 PM CARDROOM DRAWING RUNNER Height 165.1 cm (5' 5) 02/05/2022 11:27 [...] (once per calendar year) 2024 INFLUENZA VACCINE (#1) 2024 7, 03/22/2017, 01/16/2013 DTAP/TDAP/TD VACCINE (7 - Td [...] of Phone Billing Address Personal/Family Self [phone] [facility] [address] [place] [address] [place] * Guarantor: Fani Hu Account Type Relation to Patient Date of Phone Billing Address Personal/Family Self [phone] [facility] [address] [place] [address] [place] Care Teams Attendance Clerk Relationship Specialty Start Date End Date No Ref-Primary, Physician PCP - General 02/06/22
--- OUTSIDE RECORDS SUMMARY | 2024-12-12 10:37 | XMS_ITS | Clinical Summary ---
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 Gender Identity Not on file Sexual Orientation Not on file Occupation Industry Job Start Date Job End Date [employer] Not on file Not on [...] 2023 07/12/2020, 06/13/2020 Influenza Vaccine (#1) 2024 01/16/2013 Hepatitis B series for 19+ Completed 09/03, 1999, 2000 HPV series for age 9-26 Completed 12/20/2013, 01/16 Insurance [facility] Member Subscriber Plan / Payer (Ef fective 2019-Present) Name:HuFani Relation to Subscriber:Self Name:Fritz Fani J Payer ID:Not on file Group ID:Not on file Type:Not on file Address: FOR [employer] MEDICAID [facility] [employer] Member Subscriber Plan / Payer (Ef fective 2017-Present) Name:Fani Hu Relation to Subscriber:Self Name:Fani Hu Payer ID:Not on file Group ID:Not on file Type:Not on file [phone] Address: [address] [place] [address] Advance Directives * Full Code (Latest Code Status on File) Date Activated Date Inactivated Comments 09/11/2016 5:26 AM 09/17/2016 5:18 PM Question Answer Comments Code Status Discussion: Not Discussed Care Teams Web Knitter Relationship Specialty Start Date End Date Clinic, No Pcp Or . PCP - General 06/30/19
[2024-12-12 10:53] LABS: Appearance Urine Clear (Clear)
--- NOTE | 2024-12-12 11:04 | ED_ITS ---
HPI - General Adult General Date Seen: 12/12/24 Chief complaint: Post OB/Post- Complication Stated complaint: pre elampsia-5 days post Time Seen by Provider: 12/12/24 11:03 History of Present Illness HPI narrative: 24 yo F who is 5 days . She had gestational hypertension and preeclampsia prior to delivery. She also had a superficial shoulder thrombophlebitis in her left distal thigh (per medical record was here in the ER and September 25 (had already had a leg ultrasound September 22 that showed a superficial venous thrombosis in the left medial distal thigh varicose vein). She delivered on the . She was induced at 37 weeks because of preeclampsia. She also had hemorrhage with 900 mL of blood loss and required use min of Sepideh device. She did not require transfusion. Sounds like her post delivery hemoglobin was around 10. Her baby was transferred to the NICU at [facility] and has been getting oxygen, feedings, and bili lights. She was just informed after arriving here in the ER that the baby's now off oxygen, off bili lights, and is starting to take bottles. It sounds like he is improving. She also has history of anxiety depression, GERD, Rh negative. Per OB notes her blood pressure range was 117/80 1-120 9/85 on the . per DC summary 12/09/24... 24 year old G 2 P 2 at 37 weeks gestation that was admitted to the Center on 12/06/24 for induction of labor in the setting of preeclampsia without severe features. She had a vaginal delivery, complicated by hemorrhage requiring uterotonics and Sepideh. She delivered a viable male infant. She is breast feeding. the patient has done well. Vital signs have remained entirely within normal limits. Postoperative labs have been reassuring, with last hemoglobin stable at 10.4. Fani notes she is feeling very well. She denies any significant pain. No perineum concerns. Eating and drinking without difficulty, no nausea or vomiting. Lochia is described as scant. She is voiding spontaneously, passing gas and BM x1. Ambulates without difficulty, no dizziness/lightheadedness, chest pain or dyspnea. No fever/chills. Denies headaches, vision changes or right upper quadrant pain. She is breast-feeding successfully. Baby Boy is currently on oxygen, expected to remain inpatient after [facility] discharges for his medical cares. She is doing well emotionally She noted that last night around 10:00 p.m. as she was laying down in bed and she started to feel just a little bit short of breath. Not really hurting to breathe but just vaguely short of breath. She initially said it started during the process of putting her 1-year-old to bed but she actually when I asked more carefully it sounds like actually started when she laid down in her own bed after breast the. This morning when she got up around 8 she also had a little bit of discomfort in her central test. It is not exactly pleuritic pain but it sort of hurts. She is not noticing any palpitations. No nausea. No abdominal pain. No back pain. She had been experiencing some bilateral lower extremity edema but actually notes that that is better today. She also recalls that she had a superficial thrombophlebitis affecting a varicose vein in the left thigh that has been mildly uncomfortable this morning. No other swelling in her left leg. She has not had a fever. No cough. No sore throat. No stuffy nose. She is having very mild lower abdominal pain. She still is having some light vaginal bleeding which she describes as brownish red. Related Data Previous Rx's ?Medication ?Instructions ?Recorded PNV 86-iron ps 32 mg iron-folic 1 See Rx Instructions PO PER PKG DIR 12/15/23 mg-dha 120 mg-epa 180 mg oral pack 360 days #90 ea promethazine 12.5 mg tablet 25 mg (2 x 12.5 mg) PO Q6H PRN 09/26/24 nausea and vomiting #30 tabs acetaminophen 500 mg tablet 1,000 mg (2 x 500 mg) PO Q 6H PRN 12/09/24 #0 tabs docusate sodium 100 mg capsule 100 mg PO DAILY #0 caps 12/09/24 ibuprofen 600 mg tablet 600 mg PO Q6H PRN #0 tabs Allergies Allergy/AdvReac Type Severity Reaction Status Date / Time No Known Drug Allergies Allergy Verified 12/12/24 12:43 [facility] Medical History Perineal laceration during delivery (12/13/23) ?O70.9 - Perineal laceration during delivery, unspecified (ICD-10) GERD (gastroesophageal reflux disease) ?K21.9 - Gastro-esophageal reflux disease without esophagitis (ICD-10) Back pain affecting ?O99.891 - Other specified diseases and conditions complicating (ICD-10) ?M54.9 - Dorsalgia, unspecified (ICD-10) Rh negative status during ?O26.899 - Other specified related conditions, unspecified trimester (ICD-10) ?Z67.91 - Unspecified blood type, rh negative (ICD-10) Anxiety and depression ?F41.9 - Anxiety disorder, unspecified (ICD-10) ?F32.A - Depression, unspecified (ICD-10) Surgical History H/O Spinal surgery ?Z98.890 - Other specified postprocedural states (ICD-10) Social History Narrative: SOCIAL HISTORY: 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 Marital status: Significant other. Anabaptism/cultural needs: no. Chemical or radiation exposure: no. Pre- tobacco use: no. Pre- alcohol use: no. Current tobacco use: no. Current alcohol use: no. Recreational drug use: no. Dietary restrictions: no. Blood transfusion acceptable in an emergency: yes. PSYCHOSOCIAL HISTORY: History of depression or currently depressed: Yes, history. Current or past physical, emotional, or sexual mistreatment: Denies. Problems that will make it hard to make it to appointments: Denies. What is your current living situation?: I presently have a place to live Problems where you live: no known problems In the past 12 months, utilities in danger of being shut off: no In past 12 months, lack of transportation kept you from medical appts, meetings, work, or getting things needed for daily living: no In the past 12 mos, have been you worried that your food would run out before you had money to buy more?: never true In the past 12 mos, the food you bought just didn't last and you didn't have money to buy more?: never true Smoking Status: Never smoker How often do you have a drink containing alcohol: never AUDIT-C Alcohol total score: 0 Non-prescribed substance use: denies use How often does anyone, including family, friends and others, physically hurt you : never How often does anyone, including family, friends and others, insult or talk down to you: never How often does anyone, including family, friends and others, threaten you with harm: never How often does anyone, including family, friends and others, scream or curse at you: never Exam Narrative: Exam Narrative: Constitutional: Appears well-developed and well-nourished. Alert. Conversant. Non toxic. HENT: Head: Atraumatic. Nose: Nose normal. Mouth/Throat: Oral mucosa is clear and moist. no trismus. Pharynx normal. Tonsils symmetric. No tonsillar enlargement, erythema, or exudate. Eyes: Conjunctivae normal. EOM normal. Pupils equal, round, and reactive to light. No scleral icterus. Neck: Normal range of motion. Neck supple. No tracheal deviation present. No JVD Cardiovascular: Bradycardic-57 on the monitor, regular rhythm. No gallop. No friction rub. No murmur heard. Symmetric radial artery pulses Pulmonary/Chest: Effort normal. No stridor. No respiratory distress. No wheezes. No rales. No rhonchi . No tenderness. Abdominal: Soft. Bowel sounds normal. No distension. No mass. No right upper quadrant tenderness. Minimal suprapubic tenderness. No rebound. No guarding. Musculoskeletal: RUE: Normal range of motion. No tenderness. No deformity LUE: Normal range of motion. No tenderness. No deformity RLE: Normal range of motion. Trace edema. No tenderness. No deformity LLE: Normal range of motion. Trace edema. No tenderness. No deformity Neurological: Alert and oriented to person, place, and time. Normal strength. CN II-VII intact. No sensory deficit. GCS eye subscore is 4. GCS verbal subscore is 5. GCS motor subscore is 6. Normal coordination Skin: Skin is warm and dry. No rash noted. No pallor. Normal capillary refill. Psychiatric: Normal mood. Normal affect. Const: Vital Signs, click to edit/add: Vital Signs - 24 hr 12/12/24 10:38 12/12/24 11:02 12/12/24 11:31 Temperature 97.6 F Pulse Rate 57 L 56 L Pulse Rate [Pulse Oximeter] 57 L Respiratory Rate 16 18 18 Blood Pressure 134/86 122/88 Blood Pressure [Ri ght Upper Arm] 132/86 Pulse Oximetry 97 95 95 Oxygen Delivery Me thod Room Air 12/12/24 11:43 12/12/24 11:52 12/12/24 12:02 Temperature Pulse Rate 68 51 L 52 L Pulse Rate [Pulse Oximeter] Respiratory Rate 21 16 17 Blood Pressure 134/81 133/81 109/87 Blood Pressure [Ri ght Upper Arm] Pulse Oximetry 96 95 95 Oxygen Delivery Me thod 12/12/24 12:11 12/12/24 12:22 12/12/24 12:47 Temperature Pulse Rate 53 L 53 L 52 L Pulse Rate [Pulse Oximeter] Respiratory Rate 22 20 22 Blood Pressure 122/79 141/90 H 139/73 Blood Pressure [Ri ght Upper Arm] Pulse Oximetry 96 96 98 Oxygen Delivery Me thod 12/12/24 13:01 12/12/24 13:16 12/12/24 13:32 Temperature Pulse Rate 52 L 53 L 58 L Pulse Rate [Pulse Oximeter] Respiratory Rate 17 18 22 Blood Pressure 137/86 132/88 131/76 Blood Pressure [Ri ght Upper Arm] Pulse Oximetry 98 98 96 Oxygen Delivery Me thod 12/12/24 13:54 12/12/24 14:02 12/12/24 14:32 Temperature Pulse Rate 61 55 L 53 L Pulse Rate [Pulse Oximeter] Respiratory Rate 20 18 22 Blood Pressure 150/85 H 138/91 H 133/92 H Blood Pressure [Ri ght Upper Arm] Pulse Oximetry 97 94 96 Oxygen Delivery Me thod 12/12/24 16:13 Temperature Pulse Rate 80 Pulse Rate [Pulse Oximeter] Respiratory Rate 16 Blood Pressure 138/81 Blood Pressure [Ri ght Upper Arm] Pulse Oximetry 97 Oxygen Delivery Me thod Course Course ED Course: Recheck-oxygen normal. Blood pressure ranging up to about 135/86. Still feels very mild shortness of breath but not worsening. Reevaluation(s) Reevaluation #1: Recheck discussed with OB, Dr. Bullock. She requested we consult with Cardiology. Discussed with cardiology from [facility] [place]. They recommend that if this is mild peripartum cardiomyopathy we diurese and monitor the patient at home. They do not feel she needs transfer to [place] for further cardiac workup at this time. Based on Cardiology recommendation I ordered Lasix 40 mg IV. Although Cardiology did not specifically requested I have ordered an echocardiogram to look for I accurate measurement of her EF today. This could be helpful if her symptoms worsen for comparison. Discussed with the patient. She is in agreement to get the echo today. Vital Signs Vital signs: Initial Vital Signs Temperature 97.6 F 12/12/24 10:38 Temperature Source Temporal Artery Scan 12/12/24 10:38 Pulse Rate 57 L 12/12/24 10:38 Respiratory Rate 16 12/12/24 10:38 Blood Pressure 132/86 12/12/24 10:38 Blood Pressure Mean 101 12/12/24 10:38 Blood Pressure Position Sitting 12/12/24 10:38 Pulse Oximetry 97 12/12/24 10:38 Oxygen Delivery Method Room Air 12/12/24 10:38 Vital Signs Temperature 97.6 F 12/12/24 10:38 Pulse Rate 57 L 12/12/24 10:38 Respiratory Rate 16 12/12/24 10:38 Blood Pressure 132/86 12/12/24 10:38 Pulse Oximetry 97 12/12/24 10:38 Oxygen Delivery Method Room Air 12/12/24 10:38 Temperature 97.6 F 12/12/24 10:38 Pulse Rate 80 12/12/24 16:13 Respiratory Rate 16 12/12/24 16:13 Blood Pressure 138/81 12/12/24 16:13 Pulse Oximetry 97 12/12/24 16:13 Oxygen Delivery Method Room Air 12/12/24 10:38 Medications Administered Medications: Discontinued Medications Generic Name Dose Route Start Last Admin Trade Name Freq PRN Reason Stop Dose Admin Furosemide 40 mg 12/12/24 14:05 12/12/24 14:20 Furosemide 10 Mg/Ml Inj IVP 12/12/24 14:06 40 mg ONCE ONE Administration Ibuprofen 600 mg 12/12/24 15:45 12/12/24 15:47 Ibuprofen 200 Mg Tablet PO 12/12/24 15:46 600 mg ONCE ONE Administration Medical Decision Making MDM Narrative Medical decision making narrative: 24-year-old female who is 5 days status post vaginal delivery. She was induced at 37 weeks because of preeclampsia without severe features. She has been doing well since delivery. She did have some bleeding and blood down to a hemoglobin of about 10. From a preeclampsia/eclampsia standpoint things look reassuring blood pressures are marginally elevated but not truly above 139/90 requiring treatment. She does have proteinuria but also signs of contamination on her urinalysis. One of her LFTs is mildly abnormal (ALT of 52). Discussed this with OB who initially did not recommend any immediate therapy for blood pressure or points yet control. She has noted improvement in her bilateral lower extremity peripheral edema. However overnight developed shortness of breath and mild chest pain this morning. Differential is broad. EKG shows no ischemia troponin is undetectable. Consider possible PE given her status. At this point we felt that the patient's risk for PE was high enough that D-dimer testing would not be sensitive enough to let out. We sent the patient for CT PA. Fortunately is negative for PE. CT PA does show very mild pulmonary edema and a trace right pleural effusion which could be suggestive for mild CHF. I suspect this buccal does correlate with potentially a peripartum cardiomyopathy. N terminal proBNP is mildly elevated at 579. In discussion with Cardiology they recommend diuresis and monitoring. I ordered Lasix 40 mg IV. Patient did have good diuresis after that. We did obtain an EF here and preliminary report shows normal LV and RV function. Trace tricuspid regurg and trace pulmonary insufficiency. No focal wall motion abnormality or marked reduction in EF. This caused and question peripartum cardiomyopathy because we would expect a decrease in the EF. Consult again with OB. She came to evaluate the patient. Upon further review, Dr. Bullock suspect this may be preeclampsia with high-risk features since the patient now developed a mild headache. Pulmonary edema can be a symptom or preeclampsia as well. Interestingly blood pressures are not really elevated much above normal. Plan will be to admit to mother baby for blood pressure monitoring. Continue diuresis with Lasix. Only add magnesium if worsening symptoms develop. Lab Data Labs: Lab Results 12/12/24 12/12/24 Range/Units 10:48 11:40 WBC 7.99 (4.50-11.00) K/uL RBC 3.71 L (4.00-5.20) m/uL Hgb 10.5 L (12.0-16.0) gm/dL Hct 32.3 L (33.0-51.0) % MCV 87 (80-100) fL MCH 28 (26-34) pg MCHC 33 (32-36) gm/dL RDW Coeff of Helga 12.0 (11.5-15.5) % Plt Count 243 (140-440) K/uL Neut % (Auto) 78.8 H (42.0-72.0) % Lymph % (Auto) 12.6 L (20-44) % Ector % (Auto) 7.4 (0.0-11.0) % Eos % (Auto) 0.0 (0.0-7.0) % Baso % (Auto) 0.3 (0.0-3.0) % Neut # (Auto) 6.30 (1.7-7.0) K/uL Lymph # (Auto) 1.00 (0.90-2.90) K/uL Ector # (Auto) 0.60 (0.00-0.90) K/UL Eos # (Auto) 0.00 (0.00-0.50) K/uL Baso # (Auto) 0.02 (0.00-0.30) K/uL Abs Immat Gran (auto) 0.07 (0.00-0.30) K/uL Imm/Tot Granulo (auto) 0.9 % INR 1.04 (0.91-1.10) Sodium 136 (135-149) mmol/L Potassium 4.3 (3.6-5.1) mmol/L Chloride 105 (96-114) mmol/L Carbon Dioxide 27 (20-32) mmol/L Anion Gap 4 L (7-15) mEq/L BUN 17 (5-24) mg/dL Creatinine 0.7 (0.5-1.5) mg/dL Estimated Creat Clear 106.09 Estimated GFR 123 ml/min Glucose 86 (60-115) mg/dL Lactate 0.8 (0.5-1.9) mmol/L Calcium 9.6 (8.4-10.6) mg/dL Magnesium 1.5 (1.5-2.6) mg/dL Total Bilirubin 0.5 (0.1-1.5) mg/dL AST 30 (12-35) U/L ALT 52 H (4-35) U/L Alkaline Phosphatase 54 (40-150) U/L Troponin I < 0.01 (0.01-0.04) ng/mL NT-Pro-B Natriuret Pep 579 H (See Note) pg/mL Total Protein 6.7 (6.0-8.3) g/dL Albumin 3.5 (3.3-5.0) g/dL Urine Color Yellow (Yellow) Urine Appearance Clear (Clear) Urine pH 8.5 (5.0-8.5) Ur Specific [place] 1.020 (1.000-1.030) Urine Protein 2+ A (Negative) Urine Glucose (UA) Negative (Negative) Urine Ketones Negative (Negative) Urine Blood 3+ A (Negative) Urine Nitrite Negative (Negative) Urine Bilirubin Negative (Negative) Urine Urobilinogen 0.2 (0.2-1.0) Ur Leukocyte Esterase 1+ A (Negative) Urine RBC >100 A (0-2) Urine WBC 10-25 A (0-5) Ur Squamous Epith Cells Moderate A (None-Few) Urine Bacteria Moderate A (None) SARS-CoV-2 (PCR) Negative SARS-CoV-2 (Negative) Influenza Type A (PCR) Negative PCR FLU A (Negative) Influenza Type B (PCR) Negative PCR FLU B (Negative) Imaging Data CT scan - chest: Attestation: I have reviewed the pertinent imaging results. Radiologist's impression: IMPRESSION: 1. No evidence of pulmonary embolus. 2. Trace right pleural effusion with slight interlobular septal thickening at the left lung base, question minimal interstitial edema. ECG Data Attestation: I personally reviewed and interpreted this ECG as follows: Interpretation: Sinus bradycardia Rate 53 HI interval 140 Normal QRS axis. No pathologic Q-waves. No ST segment elevation or depression QT 432/QTC 405 Discharge Plan Discharge Clinical Impression: Pre-eclampsia, Pulmonary edema Patient Disposition: Admitted As Observation
--- NOTE | 2024-12-12 11:25 | CRLHL7_ITS ---
For Patients: As a result of the Century Cures Act, medical imaging exams and procedure reports are released immediately into your electronic medical record. You may view this report before your referring provider. If you have questions, please contact your health care provider. INDICATION: Chest pain and shortness of breath. Five days . TECHNIQUE: CT chest PE was acquired with 95 cc Isovue 370 IV contrast. Axial maximum intensity projection reformatted images were performed on the scanner. COMPARISON: None. FINDINGS: Heart and vasculature: Contrast opacification of the pulmonary arterial tree is adequate. No sign of pulmonary embolism. No pericardial effusion. Thoracic aorta is normal in caliber. Lungs and pleura: Trace right pleural effusion. Mild mosaic attenuation pattern within the lungs with slight interlobular septal thickening at the left lung base. Lymph nodes/mediastinum: No mediastinal or hilar lymphadenopathy. Chest wall: No masses. Upper abdomen: Normal. Bones: Status post thoracolumbar fusion, partially included on the examination. IMPRESSION: 1. No evidence of pulmonary embolus. 2. Trace right pleural effusion with slight interlobular septal thickening at the left lung base, question minimal interstitial edema. Please note that all CT scans at this facility use dose modulation, iterative reconstruction, and/or weight-based dosing when appropriate to reduce radiation dose to as low as reasonably achievable. Dictated by Attila Marin MD @ 12/12/2024 12:51:44 PM (Electronically Signed)
[2024-12-12 11:50] LABS: Lactate* 0.8 mmol/L (0.5-1.9)
[2024-12-12 11:52] LABS: Hematocrit 32.3 % (33.0-51.0); Hemoglobin* 10.5 gm/dL (12.0-16.0); Immature Granulocytes Abs Auto 0.07 K/uL (0.00-0.30); Immature Granulocytes Pct Auto 0.9 %; Mean Corpuscular HGB Conc 33 gm/dL (32-36); Mean Corpuscular Hemoglobin 28 pg (26-34); Mean Corpuscular Volume 87 fL (80-100); RDW Coefficient of Variation % 12.0 % (11.5-15.5); Red Blood Count 3.71 m/uL (4.00-5.20); White Blood Count* 7.99 K/uL (4.50-11.00)
[2024-12-12 11:57] LABS: Lymphocytes Absolute Auto 1.00 K/uL (0.90-2.90); Slide Review Reflex No
[2024-12-12 12:04] LABS: Albumin* 3.5 g/dL (3.3-5.0); Chloride* 105 mmol/L (96-114); Potassium* 4.3 mmol/L (3.6-5.1); Sodium* 136 mmol/L (135-149)
[2024-12-12 12:07] LABS: Alanine Aminotransferase* 52 U/L (4-35); Alkaline Phosphatase* 54 U/L (40-150); Anion Gap 4 mEq/L (7-15); Aspartate Amino Transferase* 30 U/L (12-35); Bilirubin Total* 0.5 mg/dL (0.1-1.5); Blood Urea Nitrogen* 17 mg/dL (5-24); Calcium* 9.6 mg/dL (8.4-10.6); Carbon Dioxide* 27 mmol/L (20-32); Creatinine* 0.7 mg/dL (0.5-1.5); Est. Creatinine Clearance* 106.09; Estimated Glomerular Filt Rate 123 ml/min; Glucose* 86 mg/dL (60-115); Total Protein* 6.7 g/dL (6.0-8.3)
[2024-12-12 12:09] LABS: INR 1.04 (0.91-1.10); Prothrombin Time 14.5 Seconds
[2024-12-12 12:21] LABS: NT Pro B Type NatriureticPept* 579 pg/mL (See Note)
[2024-12-12 12:27] LABS: PCR FLU A Negative PCR FLU A (Negative); PCR FLU B Negative PCR FLU B (Negative); SARS PCR* Negative SARS-CoV-2 (Negative)
[2024-12-12] MEDS: FUROSEMIDE 10 MG/ML inj 40 MG IVP (14:20)
[2024-12-12] MEDS: IBUPROFEN 200 MG TABLET 600 MG PO (15:47)
[2024-12-12 18:20] LABS: Hematocrit 36.7 % (33.0-51.0); Hemoglobin* 11.9 gm/dL (12.0-16.0); Mean Corpuscular HGB Conc 32 gm/dL (32-36); Mean Corpuscular Hemoglobin 28 pg (26-34); Mean Corpuscular Volume 87 fL (80-100); Red Blood Count 4.23 m/uL (4.00-5.20); White Blood Count* 9.13 K/uL (4.50-11.00)
[2024-12-12 18:26] LABS: Slide Review Reflex No
[2024-12-12 19:07] LABS: Alanine Aminotransferase* 55 U/L (4-35); Aspartate Amino Transferase* 27 U/L (12-35); Blood Urea Nitrogen* 18 mg/dL (5-24); Creatinine* 0.9 mg/dL (0.5-1.5); Est. Creatinine Clearance* 82.51; Estimated Glomerular Filt Rate 91 ml/min
--- NOTE | 2024-12-12 19:12 | P.OBCN_ITS ---
OB - CN: HPI Date of Consult Date Seen: 12/12/24 Patient: [facility] Patient Consult date: 12/12/24 Requesting Physician: Yulia Bullock MD Primary Care Provider: Not a Local Provider Consult Narrative Narrative: The patient is a 24 year old G 2 now P 2-0-0-2 woman who is 5 days status post normal spontaneous vaginal delivery at 37 weeks on 12/07/2024. Delivery was complicated by hemorrhage secondary to uterine atony with a QBL of 918 mL. This was treated with multiple uterotonics followed by a Sepideh device. She was ultimately discharged on day 2, and did not require any oral antihypertensives. Last night, she began to develop shortness of breath while lying flat and developed chest pain today. This led her to present to the emergency room. She has been taking her blood pressures regularly at home, and notes that they have recently been 130s to 140s over 80s to 90s. She notes a persistent headache today despite treating with Tylenol. She denies any right upper quadrant pain. She has had lower extremity edema, but thinks that this has improved over the last day. Her evaluation by the ER physician Dr. Isauro Anaya prior to my consultation has included: - CTA, showing no evidence of pulmonary embolus, but trace right pleural effusion with slight interlobular septal thickening at the left lung base, question minimal interstitial edema. - EKG showing sinus bradycardia with a heart rate of 53 beats per minute - ProBNP mildly elevated at 579, troponin negative - Cardiac echo with reported preliminary results of normal LVEF - BUN 17, creatinine 0.7 - AST normal at 30, ALT newly and mildly elevated at 50 - CBC with hemoglobin 10.5, platelets 243 Unfortunately her son, Sherley, required transfer to higher level of care and remains in the NICU. She reports that he has required respiratory and feeding support. He is to be discharged tomorrow. She is pumping for him. History History 2 Elective abortions Para 1 Spontaneous abortions Hx # Term Pregnancies Ectopic pregnancies Hx # Pregnancies Multiple births Number of Living Children 1 Past Pregnancies Del. Date GA/Weeks Outcome Route wt Inf Gender Labor Lgth Anesthesia Location Provider Compli 11/23/23 41 live - full term vaginal delivery 8 lb 6 oz Femal e [address] [facility] Medical History (Updated 12/12/24 @ 19:24 by Yulia Bullock MD) Gestational hypertension ?O13.9 - Gestational [-induced] hypertension without significant proteinuria, unspecified trimester (ICD-10) Pre-eclampsia affecting , antepartum ?O14.90 - Unspecified pre-eclampsia, unspecified trimester (ICD-10) Polyhydramnios affecting ?O40.9XX0 - Polyhydramnios, unspecified trimester, not applicable or unspecified (ICD-10) Perineal laceration during delivery (12/13/23) ?O70.9 - Perineal laceration during delivery, unspecified (ICD-10) GERD (gastroesophageal reflux disease) ?K21.9 - Gastro-esophageal reflux disease without esophagitis (ICD-10) Back pain affecting ?O99.891 - Other specified diseases and conditions complicating (ICD-10) ?M54.9 - Dorsalgia, unspecified (ICD-10) Rh negative status during ?O26.899 - Other specified related conditions, unspecified trimester (ICD-10) ?Z67.91 - Unspecified blood type, rh negative (ICD-10) Anxiety and depression ?F41.9 - Anxiety disorder, unspecified (ICD-10) ?F32.A - Depression, unspecified (ICD-10) Surgical History H/O Spinal surgery ?Z98.890 - Other specified postprocedural states (ICD-10) Social History Narrative: SOCIAL HISTORY: 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 Marital status: Significant other. Mandaeism/cultural needs: no. Chemical or radiation exposure: no. Pre- tobacco use: no. Pre- alcohol use: no. Current tobacco use: no. Current alcohol use: no. Recreational drug use: no. Dietary restrictions: no. Blood transfusion acceptable in an emergency: yes. PSYCHOSOCIAL HISTORY: History of depression or currently depressed: Yes, history. Current or past physical, emotional, or sexual mistreatment: Denies. Problems that will make it hard to make it to appointments: Denies. What is your current living situation?: I presently have a place to live Problems where you live: no known problems In the past 12 months, utilities in danger of being shut off: no In past 12 months, lack of transportation kept you from medical appts, meetings, work, or getting things needed for daily living: no In the past 12 mos, have been you worried that your food would run out before you had money to buy more?: never true In the past 12 mos, the food you bought just didn't last and you didn't have money to buy more?: never true Smoking Status: Never smoker How often do you have a drink containing alcohol: never AUDIT-C Alcohol total score: 0 Non-prescribed substance use: denies use How often does anyone, including family, friends and others, physically hurt you : never How often does anyone, including family, friends and others, insult or talk down to you: never How often does anyone, including family, friends and others, threaten you with harm: never How often does anyone, including family, friends and others, scream or curse at you: never Meds Home Medications and Allergies Home Medications ?Medication ?Instructions ?Recorded ?Confirmed ?Type PNV 86-iron ps 32 mg iron-folic 1 See Rx Instructions PO PER PKG DIR 12/15/23 12/06/24 Rx mg-dha 120 mg-epa 180 mg oral pack 360 days #90 ea promethazine 12.5 mg tablet 25 mg (2 x 12.5 mg) PO Q6H PRN 09/26/24 12/06/24 Rx nausea and vomiting #30 tabs acetaminophen 500 mg tablet 1,000 mg (2 x 500 mg) PO Q 6H PRN 12/09/24 Rx #0 tabs docusate sodium 100 mg capsule 100 mg PO DAILY #0 caps 12/09/24 Rx ibuprofen 600 mg tablet 600 mg PO Q6H PRN #0 tabs Rx Allergies Allergy/AdvReac Type Severity Reaction Status Date / Time No Known Drug Allergies Allergy Verified 12/12/24 12:43 OB - H&P: Exam Physical Exam: Vital signs: Temp Pulse Resp BP Pulse Ox O2 Del Method 98.1 F 82 18 125/81 98 Room Air 12/12/24 18:31 12/12/24 18:31 12/12/24 18:31 12/12/24 18:31 12/12/24 18:31 12/12/24 18:31 Narrative: Physical exam: General: No acute distress Psych: Alert and oriented x3, full affect, tearful when discussing hospitalization HEENT: Normocephalic, atraumatic Heart: Regular rate and rhythm, no murmur rub or gallop Lungs: Clear to auscultation bilaterally Abdomen: Normoactive bowel sounds, soft, no tenderness, rebound, or guarding, no masses, no hepatosplenomegaly, no hernias, uterine fundus well below umbilicus Lower extremities: Currently with 1+ edema to bilateral shins OB - Results Labs Labs: Short CBC 12/12/24 12/12/24 Range/Units 11:40 18:14 WBC 7.99 9.13 (4.50-11.00) K/uL Hgb 10.5 L 11.9 L (12.0-16.0) gm/dL Hct 32.3 L 36.7 (33.0-51.0) % Plt Count 243 252 (140-440) K/uL BMP 12/12/24 12/12/24 11:40 18:14 Sodium 136 Potassium 4.3 Chloride 105 Carbon Dioxide 27 BUN 17 18 Creatinine 0.7 0.9 Glucose 86 Calcium 9.6 Cardiac Enzymes 12/12/24 Range/Units 11:40 Troponin I < 0.01 (0.01-0.04) ng/mL Liver Function 12/12/24 12/12/24 Range/Units 11:40 18:14 Total Bilirubin 0.5 (0.1-1.5) mg/dL AST 30 27 (12-35) U/L ALT 52 H 55 H (4-35) U/L Alkaline Phosphatase 54 (40-150) U/L Albumin 3.5 (3.3-5.0) g/dL Urine 12/12/24 Range/Units 10:48 Urine Color Yellow (Yellow) Urine Appearance Clear (Clear) Urine pH 8.5 (5.0-8.5) Ur Specific [place] 1.020 (1.000-1.030) Urine Protein 2+ A (Negative) Urine Glucose (UA) Negative (Negative) OB - CN: A/P Assessment and Plan (1) Pre-eclampsia: Status: Acute (2) Pulmonary edema: Status: Acute Plan New onset pulmonary edema on day 5. She has no other identifiable etiology apart from preeclampsia, making this a likely manifestation of preeclampsia with severe features. Otherwise, her blood pressures are mildly elevated, she is not hypoxic, and her vital signs are otherwise stable. HELLP labs are also overall reassuring, with a mild elevation of ALT noted. Prior to evaluation in the ER, she was treated with a single dose of Lasix 40 mg. At the time of my evaluation, she reports feeling much better. Her headache does continue. Pulmonary edema is a relative contraindication to magnesium sulfate for seizure prophylaxis, given the possibility of respiratory depression. This being said, I am concerned about her headache. Thus, I will treat headache with oxycodone and follow her symptoms. I will begin nifedipine ER 30 mg b.i.d. for treatment of her blood pressures. For the time being, I will plan to check preeclampsia labs every 6 hours. We will continue a fluid restriction of 2 L in 24 hours. Should she require treatment of seizure, I would turned 1st towards IV lordimitri turk. We will continue strict ins and outs throughout her hospitalization. I have written her for Lasix 20 mg b.i.d. to begin tomorrow at 9:00 a.m., with the understanding that she was given 40 mg IV this afternoon.
[2024-12-12] MEDS: METOCLOPRAMIDE HCL 5 MG/ML INJ 10 MG IVP (20:01)
[2024-12-12] MEDS: ONDANSETRON 2 MG/ML inj 4 MG IVP (20:01)
[2024-12-12] MEDS: ACETAMINOPHEN 500 MG TABLET 1000 MG PO (20:01)
[2024-12-12 20:08] LABS: Protein Creatinine Ratio Urine 0.30 (0-0.19)
--- NOTE | 2024-12-12 22:42 | PM.OBPNVD1 ---
OB - PN:Subj Subjective Date Seen: 12/12/24 Narrative: I was contacted by Fani is nurse with report of desaturations to 88% wall hand was sleeping. Of note, Fani was noted to have been snoring during this time. When Fani was awakened, her saturations improved to normal ranges. She denies any shortness of breath. She does note a history of snoring at home. Her headache has also improved. She was treated with oxycodone 5 mg, 1 g of Tylenol and 10 mg of Reglan. OB - PN: Obj Exam Physical Exam: Vital signs: Temp Pulse Resp BP Pulse Ox O2 Del Method O2 Flow Rate 97.9 F 57 L 22 122/77 96 Nasal Cannula 2.5 12/12/24 21:55 12/12/24 21:55 12/12/24 21:55 12/12/24 21:55 12/12/24 22:29 12/12/24 22:29 12/12/24 22:29 640 in p.o., 500 out in urine since admission Narrative: Physical exam: Vitals as noted above. General: No acute distress, lying on her side awaken back when I enter Psych: Alert and oriented x 3, full affect Lungs: Were clear to auscultation bilaterally OB - PN: Obj Data Labs Labs: Laboratory Results - last 24 hr 12/12/24 12/12/24 12/12/24 10:48 11:40 18:14 WBC 7.99 9.13 RBC 3.71 L 4.23 Hgb 10.5 L 11.9 L Hct 32.3 L 36.7 MCV 87 87 MCH 28 28 MCHC 33 32 RDW Coeff of Helga 12.0 Plt Count 243 252 Neut % (Auto) 78.8 H Lymph % (Auto) 12.6 L [place] % (Auto) 7.4 Eos % (Auto) 0.0 Baso % (Auto) 0.3 Neut # (Auto) 6.30 Lymph # (Auto) 1.00 [place] # (Auto) 0.60 Eos # (Auto) 0.00 Baso # (Auto) 0.02 Abs Immat Gran (auto) 0.07 Imm/Tot Granulo (auto) 0.9 INR 1.04 Sodium 136 Potassium 4.3 Chloride 105 Carbon Dioxide 27 Anion Gap 4 L BUN 17 18 Creatinine 0.7 0.9 Estimated Creat Clear 106.09 82.51 Estimated GFR 123 91 Glucose 86 Lactate 0.8 Calcium 9.6 Magnesium 1.5 Total Bilirubin 0.5 AST 30 27 ALT 52 H 55 H Alkaline Phosphatase 54 Troponin I < 0.01 NT-Pro-B Natriuret Pep 579 H Total Protein 6.7 Albumin 3.5 Urine Color Yellow Cancelled Urine Appearance Clear Cancelled Urine pH 8.5 Cancelled Ur Specific [place] 1.020 Cancelled Urine Protein 2+ A Cancelled Urine Glucose (UA) Negative Cancelled Urine Ketones Negative Cancelled Urine Blood 3+ A Cancelled Urine Nitrite Negative Cancelled Urine Bilirubin Negative Cancelled Urine Urobilinogen 0.2 Cancelled Ur Leukocyte Esterase 1+ A Cancelled Urine RBC >100 A Cancelled Urine WBC 10-25 A Cancelled Urine WBC Clumps Cancelled Ur Squamous Epith Cells Moderate A Cancelled Tez Biurate Crystals Cancelled Calcium Carbonate Cryst Cancelled Calcium Phosphate Cryst Cancelled Calcium Oxalate Crystal Cancelled Cystine Crystals Cancelled Uric Acid Crystals Cancelled Triple Phos Crystals Cancelled Sulfur Crystals Cancelled Cholesterol Crystals Cancelled Tyrosine Crystals Cancelled Hippuric Acid Crystals Cancelled Amorphous Sediment Cancelled Other Sediment Cancelled Urine Bacteria Moderate A Cancelled Fatty Casts Cancelled Hyaline Casts Cancelled Fine Granular Casts Cancelled Coarse Granular Casts Cancelled Waxy Casts Cancelled RBC Casts Cancelled WBC Casts Cancelled Other Casts Cancelled Urine Starch Cancelled Urine Mucus Cancelled Urine Trichomonas Cancelled Urine Yeast Cancelled Urine Creatinine Protein/Creatinin Ratio Urine Total Protein SARS-CoV-2 (PCR) Negative SARS-CoV-2 Influenza Type A (PCR) Negative PCR FLU A Influenza Type B (PCR) Negative PCR FLU B 12/12/24 19:35 WBC RBC Hgb Hct MCV MCH MCHC RDW Coeff of Helga Plt Count Neut % (Auto) Lymph % (Auto) [place] % (Auto) Eos % (Auto) Baso % (Auto) Neut # (Auto) Lymph # (Auto) [place] # (Auto) Eos # (Auto) Baso # (Auto) Abs Immat Gran (auto) Imm/Tot Granulo (auto) INR Sodium Potassium Chloride Carbon Dioxide Anion Gap BUN Creatinine Estimated Creat Clear Estimated GFR Glucose Lactate Calcium Magnesium Total Bilirubin AST ALT Alkaline Phosphatase Troponin I NT-Pro-B Natriuret Pep Total Protein Albumin Urine Color Urine Appearance Urine pH Ur Specific [place] Urine Protein Urine Glucose (UA) Urine Ketones Urine Blood Urine Nitrite Urine Bilirubin Urine Urobilinogen Ur Leukocyte Esterase Urine RBC Urine WBC Urine WBC Clumps Ur Squamous Epith Cells Tez Biurate Crystals Calcium Carbonate Cryst Calcium Phosphate Cryst Calcium Oxalate Crystal Cystine Crystals Uric Acid Crystals Triple Phos Crystals Sulfur Crystals Cholesterol Crystals Tyrosine Crystals Hippuric Acid Crystals Amorphous Sediment Other Sediment Urine Bacteria Fatty Casts Hyaline Casts Fine Granular Casts Coarse Granular Casts Waxy Casts RBC Casts WBC Casts Other Casts Urine Starch Urine Mucus Urine Trichomonas Urine Yeast Urine Creatinine 40.2 Protein/Creatinin Ratio 0.30 H Urine Total Protein 12 SARS-CoV-2 (PCR) Influenza Type A (PCR) Influenza Type B (PCR) OB - PN: A/P Delivery Assessment and Plan (1) Pre-eclampsia: Status: Acute (2) Pulmonary edema: Status: Acute Plan day 5 after spontaneous vaginal delivery at 37 weeks in the setting of preeclampsia without severe features, now hospital day 1 after readmission for preeclampsia with severe features based on pulmonary edema. She is not maintained on magnesium sulfate due to relative contraindication in the setting of pulmonary edema. She has been started on nifedipine 30 mg ER b.i.d., and her 1st doses brought her blood pressure is within normal ranges. Given that her saturations improve to normal ranges upon awakening, I attribute her desaturations to sleep apnea alone. I will add nasal cannula well sleeping to titrate her saturations to 93%. Otherwise, continue with current management.
[2024-12-12] MEDS: OMEPRAZOLE 20 MG CAPSULE DR PO (23:14)
[2024-12-12] MEDS: FUROSEMIDE 10 MG/ML inj IVP (23:15)
[2024-12-13] VITALS (19 sets, daily range): BP systolic 97–124; BP diastolic 64–83; PULSE 64–104; RESP 16–24; TEMP 36.4–36.9; O2SAT 91–98
[2024-12-13 00:04] LABS: Hematocrit 38.9 % (33.0-51.0); Hemoglobin* 12.7 gm/dL (12.0-16.0); Mean Corpuscular HGB Conc 33 gm/dL (32-36); Mean Corpuscular Hemoglobin 28 pg (26-34); Mean Corpuscular Volume 87 fL (80-100); Red Blood Count 4.49 m/uL (4.00-5.20); White Blood Count* 9.66 K/uL (4.50-11.00)
[2024-12-13 00:05] LABS: Slide Review Reflex No
[2024-12-13 00:19] LABS: Alanine Aminotransferase* 52 U/L (4-35); Aspartate Amino Transferase* 27 U/L (12-35); Blood Urea Nitrogen* 22 mg/dL (5-24); Creatinine* 0.7 mg/dL (0.5-1.5); Est. Creatinine Clearance* 106.09; Estimated Glomerular Filt Rate 123 ml/min
[2024-12-13 06:02] LABS: Hematocrit 37.0 % (33.0-51.0); Hemoglobin* 12.1 gm/dL (12.0-16.0); Mean Corpuscular HGB Conc 33 gm/dL (32-36); Mean Corpuscular Hemoglobin 28 pg (26-34); Mean Corpuscular Volume 86 fL (80-100); Red Blood Count 4.28 m/uL (4.00-5.20); Slide Review Reflex No; White Blood Count* 8.67 K/uL (4.50-11.00)
[2024-12-13] MEDS: ONDANSETRON 2 MG/ML inj 4 MG IVP (06:09)
[2024-12-13] MEDS: ACETAMINOPHEN 500 MG TABLET 1000 MG PO ×3 (06:12→18:00)
[2024-12-13 06:20] LABS: Alanine Aminotransferase* 46 U/L (4-35); Aspartate Amino Transferase* 22 U/L (12-35); Blood Urea Nitrogen* 18 mg/dL (5-24); Creatinine* 0.7 mg/dL (0.5-1.5); Est. Creatinine Clearance* 106.09; Estimated Glomerular Filt Rate 123 ml/min
--- NOTE | 2024-12-13 06:28 | PC.NURSE ---
Shift note: Pt was on 2.5L of oxygen before taking over at 2300. At that time, pt reported headache of 7/10. Provider notified and ordered to give Oxycodone 5mg and to DC oxygen as long as pt is able to maintain O2>92, especially when awake. Pt was able to maintain O2>92 on room air but desaturated to 88% when she was sleeping at 0030. Provider updated and ordered to resume the oxygen. Pt has since been on 2L of oxygen for the rest of the night and O2 was between 92 and 95%.? Urine output of 1200ml since 2300. Highest Bp recorded was 116/80 at 0400. ALT 52 from 55, AST remained at 27, GFR 123 from 91, Creatinine 0.7 from 0.9, BUN 22 from 18. Pt reported feeling nauseated this morning at 0600. Provider updated and ordered 1x Zofran which was effective. Tylenol 1g was given at the same time with the Zofran for headache of 6/10. No fever recorded.?
--- NOTE | 2024-12-13 07:34 | CRLHL7_ITS ---
For Patients: As a result of the Century Cures Act, medical imaging exams and procedure reports are released immediately into your electronic medical record. You may view this report before your referring provider. If you have questions, please contact your health care provider. INDICATION: Reassess pulmonary edema COMPARISON: CT 12/12/2024 TECHNIQUE: PA and lateral 2 view chest. FINDINGS: Lung volumes are good. No focal or diffuse opacities. No pulmonary edema. No pleural effusion. No pneumothorax. No pneumomediastinum. Normal cardiomediastinal silhouette. Bones: Lumbar spinal hardware partially in the field of view. No acute appearing bone findings in the chest. IMPRESSION: Lungs clear. No edema or effusion. Dictated by Allison Link MD @ 12/13/2024 8:00:43 AM (Electronically Signed)
--- NOTE | 2024-12-13 07:36 | P.IMCN_ITS ---
Date of Consult Patient: [facility] Patient Consult date: 12/13/24 Requesting Physician: [facility] Primary Care Provider: Not a Local Provider Consult Narrative Reason for consult: Hypoxia, pulmonary edema Narrative: Fani Hu is a 24 year old female who presented to the ER at 5 days for dyspnea, headache, chest discomfort. She is s/p IOL at 36 6/7 for pre-eclampsia. In addition to pre-eclampsia, complicated by elevated BP at 24 weeks, mild polyhydramnios. Delivered on 12/08/24 with + hemorrhage, EBL 918mL (received TXA, Hemabate, Cycotec, placement of Sepideh device). Did not require blood transfusion, Hgb kenan 10.4 In the ER: - sinus bradycardia on EKG, no other concerning findings - CTA of chest revealed no PE, trace R pleural effusion with interlobular thickening at L lung base (possible minimal interstitial edema) - TTE reassuring with normal LV size and wall thickening, EF 60-65%, normal pulmonary pressures - received 40mg of IV Lasix She was admitted to the Obstetrical service. On the OB floor, received another 10mg of IV Lasix. Down 2kg from admission this morning. Hospitalist team consulted given concern for pulmonary edema. Fani has a persistent headache as primary concern. Required low dose oxygen supplementation overnight, stable on RA this morning. CXR repeated this morning, reassuring. Troponin and CMP negative. TTE results below: Final Impressions: 1. Normal LV size, normal wall thickness, normal function with an estimated EF of 60 - 65%. 2. Right ventricular cavity size is mildly enlarged, global systolic RV function is normal. 3. No significant valve disease detected. 4. No pericardial effusion. 5. Normal estimated pulmonary pressure (22 mmHg plus RAP). ? Comparison There are no prior studies on this patient for comparison purposes. Review of Systems Status of ROS: Reports: 10 or more systems reviewed and unremarkable except as noted in History and below Narrative: - still has headache this morning [facility] Medical History (Updated 12/13/24 @ 11:00 by Yoly Wills MD) hemorrhage ?O72.1 - Other immediate hemorrhage (ICD-10) (normal spontaneous vaginal delivery) ?O80 - Encounter for full-term uncomplicated delivery (ICD-10) , high-risk ?O09.90 - Supervision of high risk , unspecified, unspecified trimester (ICD-10) Nausea and vomiting during ?O21.9 - Vomiting of , unspecified (ICD-10) Gestational hypertension ?O13.9 - Gestational [-induced] hypertension without significant proteinuria, unspecified trimester (ICD-10) Pre-eclampsia affecting , antepartum ?O14.90 - Unspecified pre-eclampsia, unspecified trimester (ICD-10) Polyhydramnios affecting ?O40.9XX0 - Polyhydramnios, unspecified trimester, not applicable or unspecified (ICD-10) Perineal laceration during delivery (12/13/23) ?O70.9 - Perineal laceration during delivery, unspecified (ICD-10) GERD (gastroesophageal reflux disease) ?K21.9 - Gastro-esophageal reflux disease without esophagitis (ICD-10) Back pain affecting ?O99.891 - Other specified diseases and conditions complicating (ICD-10) ?M54.9 - Dorsalgia, unspecified (ICD-10) Rh negative status during ?O26.899 - Other specified related conditions, unspecified trimester (ICD-10) ?Z67.91 - Unspecified blood type, rh negative (ICD-10) Anxiety and depression ?F41.9 - Anxiety disorder, unspecified (ICD-10) ?F32.A - Depression, unspecified (ICD-10) Surgical History H/O Spinal surgery ?Z98.890 - Other specified postprocedural states (ICD-10) Social History Narrative: SOCIAL HISTORY: 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 Marital status: Significant other. Sikhism/cultural needs: no. Chemical or radiation exposure: no. Pre- tobacco use: no. Pre- alcohol use: no. Current tobacco use: no. Current alcohol use: no. Recreational drug use: no. Dietary restrictions: no. Blood transfusion acceptable in an emergency: yes. PSYCHOSOCIAL HISTORY: History of depression or currently depressed: Yes, history. Current or past physical, emotional, or sexual mistreatment: Denies. Problems that will make it hard to make it to appointments: Denies. What is your current living situation?: I presently have a place to live Problems where you live: no known problems In the past 12 months, utilities in danger of being shut off: no In past 12 months, lack of transportation kept you from medical appts, meetings, work, or getting things needed for daily living: no In the past 12 mos, have been you worried that your food would run out before you had money to buy more?: never true In the past 12 mos, the food you bought just didn't last and you didn't have money to buy more?: never true Smoking Status: Never smoker How often do you have a drink containing alcohol: never AUDIT-C Alcohol total score: 0 Non-prescribed substance use: denies use How often does anyone, including family, friends and others, physically hurt you : never How often does anyone, including family, friends and others, insult or talk down to you: never How often does anyone, including family, friends and others, threaten you with harm: never How often does anyone, including family, friends and others, scream or curse at you: never Meds Home Medications and Allergies Home Medications ?Medication ?Instructions ?Recorded ?Confirmed ?Type PNV 86-iron ps 32 mg iron-folic 1 See Rx Instructions PO PER PKG DIR 12/15/23 12/06/24 Rx mg-dha 120 mg-epa 180 mg oral pack 360 days #90 ea promethazine 12.5 mg tablet 25 mg (2 x 12.5 mg) PO Q6H PRN 09/26/24 12/06/24 Rx nausea and vomiting #30 tabs acetaminophen 500 mg tablet 1,000 mg (2 x 500 mg) PO Q 6H PRN 12/09/24 Rx #0 tabs docusate sodium 100 mg capsule 100 mg PO DAILY #0 caps 12/09/24 Rx ibuprofen 600 mg tablet 600 mg PO Q6H PRN #0 tabs Rx Allergies Allergy/AdvReac Type Severity Reaction Status Date / Time No Known Drug Allergies Allergy Verified 12/12/24 12:43 Exam Narrative: Exam Narrative: GEN: Alert and oriented, appears to not feel well, but nontoxic HEENT: No scleral icterus CV: RRR, No concerning murmurs, rubs, or gallops R: No wheezing, fine rales R base Ext: wwp, trace edema BLE Skin: No concerning skin lesions or rashes on exposed skin Neuro: No focal deficits Psych: Appropriate Const: Vital Signs, click to edit/add: Vital Signs - 24 hr 12/12/24 10:38 12/12/24 11:02 12/12/24 11:31 Temperature 97.6 F Pulse Rate 57 L 56 L Pulse Rate [Pulse Oximeter] 57 L Respiratory Rate 16 18 18 Blood Pressure 134/86 122/88 Blood Pressure [Ri ght Arm] Blood Pressure [Ri ght Upper Arm] 132/86 Pulse Oximetry 97 95 95 Oxygen Delivery Me thod Room Air Oxygen Flow Rate 12/12/24 11:43 12/12/24 11:52 12/12/24 12:02 Temperature Pulse Rate 68 51 L 52 L Pulse Rate [Pulse Oximeter] Respiratory Rate 21 16 17 Blood Pressure 134/81 133/81 109/87 Blood Pressure [Ri ght Arm] Blood Pressure [Ri ght Upper Arm] Pulse Oximetry 96 95 95 Oxygen Delivery Me thod Oxygen Flow Rate 12/12/24 12:11 12/12/24 12:22 12/12/24 12:47 Temperature Pulse Rate 53 L 53 L 52 L Pulse Rate [Pulse Oximeter] Respiratory Rate 22 20 22 Blood Pressure 122/79 141/90 H 139/73 Blood Pressure [Ri ght Arm] Blood Pressure [Ri ght Upper Arm] Pulse Oximetry 96 96 98 Oxygen Delivery Me thod Oxygen Flow Rate 12/12/24 13:01 12/12/24 13:16 12/12/24 13:32 Temperature Pulse Rate 52 L 53 L 58 L Pulse Rate [Pulse Oximeter] Respiratory Rate 17 18 22 Blood Pressure 137/86 132/88 131/76 Blood Pressure [Ri ght Arm] Blood Pressure [Ri ght Upper Arm] Pulse Oximetry 98 98 96 Oxygen Delivery Me thod Oxygen Flow Rate 12/12/24 13:54 12/12/24 14:02 12/12/24 14:32 Temperature Pulse Rate 61 55 L 53 L Pulse Rate [Pulse Oximeter] Respiratory Rate 20 18 22 Blood Pressure 150/85 H 138/91 H 133/92 H Blood Pressure [Ri ght Arm] Blood Pressure [Ri ght Upper Arm] Pulse Oximetry 97 94 96 Oxygen Delivery Me thod Oxygen Flow Rate 12/12/24 16:13 12/12/24 17:25 12/12/24 18:31 Temperature 97.9 F 98.1 F Pulse Rate 80 Pulse Rate [Pulse Oximeter] 95 82 Respiratory Rate 16 16 18 Blood Pressure 138/81 Blood Pressure [Ri ght Arm] 118/81 125/81 Blood Pressure [Ri ght Upper Arm] Pulse Oximetry 97 97 98 Oxygen Delivery Me thod Room Air Room Air Oxygen Flow Rate 12/12/24 19:20 12/12/24 20:31 12/12/24 20:54 Temperature 97.5 F L 97.5 F L Pulse Rate Pulse Rate [Pulse Oximeter] 71 75 Respiratory Rate 12 22 24 Blood Pressure Blood Pressure [Ri ght Arm] 120/78 103/69 Blood Pressure [Ri ght Upper Arm] Pulse Oximetry 96 93 93 Oxygen Delivery Me thod Room Air Room Air Room Air Oxygen Flow Rate 12/12/24 21:18 12/12/24 21:55 12/12/24 22:07 Temperature 97.9 F Pulse Rate Pulse Rate [Pulse Oximeter] 62 57 L Respiratory Rate 22 Blood Pressure Blood Pressure [Ri ght Arm] 122/77 Blood Pressure [Ri ght Upper Arm] Pulse Oximetry 92 92 93 Oxygen Delivery Me thod Room Air Room Air Nasal Cannula Oxygen Flow Rate 1 12/12/24 22:10 12/12/24 22:21 12/12/24 22:22 Temperature Pulse Rate Pulse Rate [Pulse Oximeter] Respiratory Rate Blood Pressure Blood Pressure [Ri ght Arm] Blood Pressure [Ri ght Upper Arm] Pulse Oximetry 94 93 94 Oxygen Delivery Me thod Nasal Cannula Nasal Cannula Nasal Cannula Oxygen Flow Rate 2 2.5 2.5 12/12/24 22:29 12/12/24 22:49 12/12/24 23:12 Temperature Pulse Rate Pulse Rate [Pulse Oximeter] 107 H Respiratory Rate Blood Pressure Blood Pressure [Ri ght Arm] Blood Pressure [Ri ght Upper Arm] Pulse Oximetry 96 92 94 Oxygen Delivery Me thod Nasal Cannula Nasal Cannula Oxygen Flow Rate 2.5 2 2.5 12/12/24 23:43 12/13/24 02:12 12/13/24 03:54 Temperature 97.6 F 97.6 F 97.6 F Pulse Rate Pulse Rate [Pulse Oximeter] 102 H 67 76 Respiratory Rate 22 20 20 Blood Pressure Blood Pressure [Ri ght Arm] 99/63 112/75 116/80 Blood Pressure [Ri ght Upper Arm] Pulse Oximetry 94 95 93 Oxygen Delivery Me thod Nasal Cannula Nasal Cannula Nasal Cannula Oxygen Flow Rate 2.5 2 2 Labs Labs: Short CBC 12/12/24 12/12/24 12/13/24 Range/Units 11:40 18:14 00:00 WBC 7.99 9.13 9.66 (4.50-11.00) K/uL Hgb 10.5 L 11.9 L 12.7 (12.0-16.0) gm/dL Hct 32.3 L 36.7 38.9 (33.0-51.0) % Plt Count 243 252 272 (140-440) K/uL 12/13/24 Range/Units 05:56 WBC 8.67 (4.50-11.00) K/uL Hgb 12.1 (12.0-16.0) gm/dL Hct 37.0 (33.0-51.0) % Plt Count 256 (140-440) K/uL BMP 12/12/24 12/12/24 12/13/24 11:40 18:14 00:00 Sodium 136 Potassium 4.3 Chloride 105 Carbon Dioxide 27 BUN 17 18 22 Creatinine 0.7 0.9 0.7 Glucose 86 Calcium 9.6 12/13/24 05:56 Sodium Potassium Chloride Carbon Dioxide BUN 18 Creatinine 0.7 Glucose Calcium Cardiac Enzymes 12/12/24 Range/Units 11:40 Troponin I < 0.01 (0.01-0.04) ng/mL Liver Function 12/12/24 12/12/24 12/13/24 Range/Units 11:40 18:14 00:00 Total Bilirubin 0.5 (0.1-1.5) mg/dL AST 30 27 27 (12-35) U/L ALT 52 H 55 H 52 H (4-35) U/L Alkaline Phosphatase 54 (40-150) U/L Albumin 3.5 (3.3-5.0) g/dL 12/13/24 Range/Units 05:56 Total Bilirubin (0.1-1.5) mg/dL AST 22 (12-35) U/L ALT 46 H (4-35) U/L Alkaline Phosphatase (40-150) U/L Albumin (3.3-5.0) g/dL Urine 12/12/24 12/12/24 Range/Units 10:48 11:40 Urine Color Yellow Cancelled (Yellow) Urine Appearance Clear Cancelled (Clear) Urine pH 8.5 Cancelled (5.0-8.5) Ur Specific [place] 1.020 Cancelled (1.000-1.030) Urine Protein 2+ A Cancelled (Negative) Urine Glucose (UA) Negative Cancelled (Negative) Assessment and Plan Assessment and plan (1) Pulmonary edema: Problem comment: - noted on CTA of chest 12/12 - received IV Lasix with + diuresis - reassuring TTE on 12/12, reassuring CXR 12/13 - currently not hypoxic - prn Lasix during treatment for pre-eclampsia, continue to monitor Is/Os, daily weights - recommend outpatient evaluation for GIBSON Status: Acute (2) Pre-eclampsia: Problem comment: - management per chief supply chain officer team Status: Acute Plan - per above - reviewed plan of care with Dr. Goldstein of chief supply chain officer team
--- NOTE | 2024-12-13 07:38 | P.OBPN_ITS ---
OB - PN:Subj Subjective Time Seen by Provider: 07:40 Date Seen: 12/13/24 Narrative: Fani is a 24yo seen on PPD6 from following IOL at preeclampsia without severe features. Delivery was complicated by hemorrhage secondary to uterine atony with a QBL of 918 mL. This was treated with multiple uterotonics followed by a Sepideh device. She was ultimately discharged on day 2, and did not require any oral antihypertensives. Fani was readmitted on 12/12 after presenting to the ED with orthopnea and chest pain. Evaluation has included the following: - CTA, showing no evidence of pulmonary embolus, but trace right pleural effusio n with slight interlobular septal thickening at the left lung base, question minimal interstitial edema - EKG showing sinus bradycardia with a heart rate of 53 beats per minute - ProBNP mildly elevated at 579, troponin negative - Cardiac echo with reported preliminary results of normal LVEF - PreE labs demonstrated normal platelets and Cr, mild transaminitis (ALT max of 55) She received 40mg IV lasix in the ED with significant improvement in symptoms. Received 10mg PO once overnight as well. Magnesium sulfate was intentionally withheld despite preeclampsia with severe features in the setting of pulmonary edema on CT chest. MFM consult was completed by Dr. Bullock with Dr. Das at [facility], who agreed with observation at this time in the setting of pulmonary edema. She is diuresing appropriately, 1200cc in the last 8 hours. She denies any chest pain today, does still have slight shortness of breath. With regard to preeclampsia symptoms, Fani does continue to have a headache. She has been managing this with Tylenol, reglan and oxycodone 2 doses overnight. Her pain does improve, but the headache never resolves. Pain is rated as 5/10 at present, across the frontal region of her head. She has some associated nausea, but suspect this is secondary to oxycodone as it is new since she started taking the medicine. She denies any photophobia or phonophobia, no vision changes. No RUQ pain. Overnight, patient was noted to have a new O2 requirement. She was noted to desaturation to 88% during snoring episodes, which improved readily upon wakening. She was initiated on 2L of oxygen with a goal O2 sat of >=93%. Serial preE labs have demonstrated interval stability and improvement, AM platelets 256, Cr 0.7, AST 22 and ALT 46 (52). She is off O2 this morning. She denies any routine concerns. No significant abdominal/pelvic pain, no significant lochia. She notes her lower extremity edema has improved somewhat in the last few days. No calf erythema or tenderness. OB - PN: Obj Exam Physical Exam: Vital signs: Temp Pulse Resp BP Pulse Ox O2 Del Method O2 Flow Rate 97.6 F 76 20 116/80 93 Nasal Cannula 2 12/13/24 03:54 12/13/24 03:54 12/13/24 03:54 12/13/24 03:54 12/13/24 03:54 12/13/24 03:54 12/13/24 03:54 Narrative: General: Alert and oriented. In no acute distress. She is lying in bed with a washcloth over her forehead due to headache. Psych: Appropriate mood and affect Heart: Regular rate and rhythm, no rubs murmurs or gallops Lungs: Clear to posterior auscultation throughout. No wheezes or rales, slight crackles in right lower lung base but she is also lying on her right side. Abdomen: Soft, non-tender and non-distended Extremities: 1+ pitting edema to the low-shins, no calf erythema or tenderness. OB - PN: Obj Data Labs Labs: Laboratory Results - last 24 hr 12/12/24 12/12/24 12/12/24 10:48 11:40 18:14 WBC 7.99 9.13 RBC 3.71 L 4.23 Hgb 10.5 L 11.9 L Hct 32.3 L 36.7 MCV 87 87 MCH 28 28 MCHC 33 32 RDW Coeff of Helga 12.0 Plt Count 243 252 Neut % (Auto) 78.8 H Lymph % (Auto) 12.6 L [place] % (Auto) 7.4 Eos % (Auto) 0.0 Baso % (Auto) 0.3 Neut # (Auto) 6.30 Lymph # (Auto) 1.00 [place] # (Auto) 0.60 Eos # (Auto) 0.00 Baso # (Auto) 0.02 Abs Immat Gran (auto) 0.07 Imm/Tot Granulo (auto) 0.9 INR 1.04 Sodium 136 Potassium 4.3 Chloride 105 Carbon Dioxide 27 Anion Gap 4 L BUN 17 18 Creatinine 0.7 0.9 Estimated Creat Clear 106.09 82.51 Estimated GFR 123 91 Glucose 86 Lactate 0.8 Calcium 9.6 Magnesium 1.5 Total Bilirubin 0.5 AST 30 27 ALT 52 H 55 H Alkaline Phosphatase 54 Troponin I < 0.01 NT-Pro-B Natriuret Pep 579 H Total Protein 6.7 Albumin 3.5 Urine Color Yellow Cancelled Urine Appearance Clear Cancelled Urine pH 8.5 Cancelled Ur Specific [place] 1.020 Cancelled Urine Protein 2+ A Cancelled Urine Glucose (UA) Negative Cancelled Urine Ketones Negative Cancelled Urine Blood 3+ A Cancelled Urine Nitrite Negative Cancelled Urine Bilirubin Negative Cancelled Urine Urobilinogen 0.2 Cancelled Ur Leukocyte Esterase 1+ A Cancelled Urine RBC >100 A Cancelled Urine WBC 10-25 A Cancelled Urine WBC Clumps Cancelled Ur Squamous Epith Cells Moderate A Cancelled [place] Biurate Crystals Cancelled Calcium Carbonate Cryst Cancelled Calcium Phosphate Cryst Cancelled Calcium Oxalate Crystal Cancelled Cystine Crystals Cancelled Uric Acid Crystals Cancelled Triple Phos Crystals Cancelled Sulfur Crystals Cancelled Cholesterol Crystals Cancelled Tyrosine Crystals Cancelled Hippuric Acid Crystals Cancelled Amorphous Sediment Cancelled Other Sediment Cancelled Urine Bacteria Moderate A Cancelled Fatty Casts Cancelled Hyaline Casts Cancelled Fine Granular Casts Cancelled Coarse Granular Casts Cancelled Waxy Casts Cancelled RBC Casts Cancelled WBC Casts Cancelled Other Casts Cancelled Urine Starch Cancelled Urine Mucus Cancelled Urine Trichomonas Cancelled Urine Yeast Cancelled Urine Creatinine Protein/Creatinin Ratio Urine Total Protein SARS-CoV-2 (PCR) Negative SARS-CoV-2 Influenza Type A (PCR) Negative PCR FLU A Influenza Type B (PCR) Negative PCR FLU B 12/12/24 12/13/24 12/13/24 19:35 00:00 05:56 WBC 9.66 8.67 RBC 4.49 4.28 Hgb 12.7 12.1 Hct 38.9 37.0 MCV 87 86 MCH 28 28 MCHC 33 33 RDW Coeff of Helga Plt Count 272 256 Neut % (Auto) Lymph % (Auto) [place] % (Auto) Eos % (Auto) Baso % (Auto) Neut # (Auto) Lymph # (Auto) [place] # (Auto) Eos # (Auto) Baso # (Auto) Abs Immat Gran (auto) Imm/Tot Granulo (auto) INR Sodium Potassium Chloride Carbon Dioxide Anion Gap BUN 22 18 Creatinine 0.7 0.7 Estimated Creat Clear 106.09 106.09 Estimated GFR 123 123 Glucose Lactate Calcium Magnesium Total Bilirubin AST 27 22 ALT 52 H 46 H Alkaline Phosphatase Troponin I NT-Pro-B Natriuret Pep Total Protein Albumin Urine Color Urine Appearance Urine pH Ur Specific [place] Urine Protein Urine Glucose (UA) Urine Ketones Urine Blood Urine Nitrite Urine Bilirubin Urine Urobilinogen Ur Leukocyte Esterase Urine RBC Urine WBC Urine WBC Clumps Ur Squamous Epith Cells [place] Biurate Crystals Calcium Carbonate Cryst Calcium Phosphate Cryst Calcium Oxalate Crystal Cystine Crystals Uric Acid Crystals Triple Phos Crystals Sulfur Crystals Cholesterol Crystals Tyrosine Crystals Hippuric Acid Crystals Amorphous Sediment Other Sediment Urine Bacteria Fatty Casts Hyaline Casts Fine Granular Casts Coarse Granular Casts Waxy Casts RBC Casts WBC Casts Other Casts Urine Starch Urine Mucus Urine Trichomonas Urine Yeast Urine Creatinine 40.2 Protein/Creatinin Ratio 0.30 H Urine Total Protein 12 SARS-CoV-2 (PCR) Influenza Type A (PCR) Influenza Type B (PCR) OB - PN: A/P Delivery Assessment and Plan (1) Pre-eclampsia: Status: Acute (2) Pulmonary edema: Status: Acute Plan Fani is a 24yo seen on PPD6 readmitted for preeclampsia with severe fea tures with new onset mild pulmonary edema. was complicated by preeclampsia without severe features, delivery complicated by hemorrhage. She was discharged home on PPD2. Please see above summary of evaluation she had in the emergency department. Essentially, she presented for orthopnea and chest pain where a CT of the chest ruled out PE but did suggest question minimal interstitial edema and a trace right pleural effusion. Patient had symptomatic improvement with IV 40 mg of Lasix. Overnight, she did have desaturations during an episode of snoring which did improve when awoken. She was placed on supplemental O2 of 2L with goal to maintain her sats >=93%. 10 mg of Lasix was again administered. Urine output has been robust, 1200cc/8 hours. Weight is down nearly 4lbs since admission. CXR was obtained this morning, where there is no ongoing evidence of pulmonary edema. Oxygen was discontinued upon awakening, patient is satting 93-97% on room air throughout our conversation this morning. She notes no chest pain, does still report slight shortness of breath. No cough. Hospitalist was consulted for consideration of ongoing diuresis and to discuss if any further evaluation is warranted. Please see Dr. Wills's note for complete details. With regard to headache, I am. concerned that this (in addition to pulmonary edema) is a severe manifestation of preeclampsia. Her headache does improve somewhat with Tylenol, Reglan and oxycodone but persists. This morning, it is rated 5/10. Recommend Tylenol, ibuprofen and Reglan as analgesia plan. Would c onsider compazine or sumatriptan if symptoms persist. Denies vision changes or right upper quadrant pain. She does have some nausea that has accompanied her headache, suspect this is secondary to oxycodone side effect however. Plan to discontinue oxycodone in trial alternative headache medications. Given her persistent [employer] irritability and apparent movement and pulmonary edema, I did discuss her plan of care again with Dr. Das of [facility]. She agrees that magnesium sulfate therapy would be warranted in the setting of [employer] irritability and agrees this would be safe given her only mild pulmonary edema on admission that has clinically improved. As such, plan is to proceed with 4 g bolus followed by 2 grams/hour infusion times 24 hours for preeclampsia with SF ([employer] irritability) given demonstrable improvement in pulmonary edema throughout admission. If she were to have unrelenting headache despite this, would consider brain MRI at recommendation of Dr. Das. Plan to obtain serial preeclampsia labs while on magnesium sulfate including magnesium level. Vital sign checks and Mag assessments per unit standard. Out of an abundance of precaution, plan to continue diuresis with Lasix 10 mg q.6h while on magnesium sulfate. Goal of this is to continue symptomatic improvement and try to offset potential pulmonary edema secondary to magnesium infusion itself. Certainly, if there is worsening in her clinical status or new daytime oxygen requirement, we will have a low threshold to discontinue magnesium sulfate. Plan to repeat her chest x-ray at 2100 this evening, sooner as clinically indicated. I do question if some of the overnight hypoxia was secondary to undiagnosed GIBSON, due to comorbid obesity and the fact this is occurred specifically during the snoring episode. Still, will have a low threshold to resume oxygen in discontinue magnesium if any suspicion for recurrent pulmonary edema were to occur. In addition, will modify the threshold to starting oxygen to be O2 sat <90% on room air. Diligent I and O monitoring ongoing, restrict PO intake to less than net +1.5L/24 hours. Plan of care discussed with Dr. Das ([facility]) and Dr. Wills who agree this is reasonable.
[2024-12-13 08:02] LABS: Chloride* 101 mmol/L (96-114); Sodium* 136 mmol/L (135-149)
[2024-12-13 08:03] LABS: Albumin* 3.7 g/dL (3.3-5.0); Potassium* 3.9 mmol/L (3.6-5.1)
[2024-12-13 08:05] LABS: Alkaline Phosphatase* 61 U/L (40-150); Anion Gap 6 mEq/L (7-15); Bilirubin Total* 0.3 mg/dL (0.1-1.5); Carbon Dioxide* 29 mmol/L (20-32)
[2024-12-13 08:06] LABS: Calcium* 9.1 mg/dL (8.4-10.6); Glucose* 106 mg/dL (60-115); Total Protein* 7.0 g/dL (6.0-8.3)
[2024-12-13] MEDS: IBUPROFEN 600 MG TABLET PO ×3 (08:19→21:01)
[2024-12-13] MEDS: METOCLOPRAMIDE 10 MG TABLET PO (09:00)
[2024-12-13] MEDS: LACTATED RINGERS 1000 ML 1,000 ML 75 ML IV ×2 (09:36→22:44)
[2024-12-13] MEDS: MAGNESIUM IV 4 GM/100 ML PIGGYBACK IVPB (09:37)
[2024-12-13] MEDS: FUROSEMIDE 20 MG TABLET 10 MG PO ×3 (10:07→21:31)
[2024-12-13] MEDS: MAGNESIUM Infusion 40 GM/1,000 ML IV.SOLN IVPB (10:08)
[2024-12-13 12:11] LABS: Hematocrit 39.8 % (33.0-51.0); Hemoglobin* 13.1 gm/dL (12.0-16.0); Mean Corpuscular HGB Conc 33 gm/dL (32-36); Mean Corpuscular Hemoglobin 29 pg (26-34); Mean Corpuscular Volume 87 fL (80-100); Red Blood Count 4.56 m/uL (4.00-5.20); White Blood Count* 10.00 K/uL (4.50-11.00)
[2024-12-13 12:12] LABS: Slide Review Reflex No
[2024-12-13 12:30] LABS: Alanine Aminotransferase* 46 U/L (4-35); Aspartate Amino Transferase* 30 U/L (12-35); Blood Urea Nitrogen* 17 mg/dL (5-24); Creatinine* 0.8 mg/dL (0.5-1.5); Est. Creatinine Clearance* 92.83; Estimated Glomerular Filt Rate 105 ml/min
[2024-12-13 18:00] LABS: Hematocrit 39.6 % (33.0-51.0); Hemoglobin* 12.9 gm/dL (12.0-16.0); Mean Corpuscular HGB Conc 33 gm/dL (32-36); Mean Corpuscular Hemoglobin 28 pg (26-34); Mean Corpuscular Volume 86 fL (80-100); Red Blood Count 4.59 m/uL (4.00-5.20); White Blood Count* 11.74 K/uL (4.50-11.00)
[2024-12-13 18:01] LABS: Slide Review Reflex No
[2024-12-13 18:15] LABS: Alanine Aminotransferase* 44 U/L (4-35); Aspartate Amino Transferase* 27 U/L (12-35); Blood Urea Nitrogen* 16 mg/dL (5-24)
[2024-12-13 18:40] LABS: Creatinine* 0.9 mg/dL (0.5-1.5); Est. Creatinine Clearance* 82.51; Estimated Glomerular Filt Rate 91 ml/min
--- NOTE | 2024-12-13 19:00 | CRLHL7_ITS ---
For Patients: As a result of the Cures Act, medical imaging exams and procedure reports are released immediately into your electronic medical record. You may view this report before your referring provider. If you have questions, please contact your health care provider. INDICATION: F/U CXR AFTER MAG SULFATE. TECHNIQUE: Chest 2 views. COMPARISON: December 13, 2024. FINDINGS: Cardiovascular and mediastinum: Cardiomediastinal silhouette is within normal limits. Lungs and pleural spaces: Lungs are clear. No sign of pleural effusion. No pneumothorax. Bones and soft tissues: Lumbar fixation hardware, partially visualized. IMPRESSION: No acute findings and no significant change from the prior exam. Dictated by Shad Napier MD @ 12/13/2024 4:56:58 PM (Electronically Signed)
[2024-12-13] MEDS: LABETALOL HCL 100 MG TABLET PO (20:58)
[2024-12-14] VITALS (8 sets, daily range): BP systolic 107–124; BP diastolic 70–84; PULSE 65–83; RESP 16–18; TEMP 36.7–36.9; O2SAT 92–98
[2024-12-14 00:20] LABS: Hematocrit 35.9 % (33.0-51.0); Hemoglobin* 11.7 gm/dL (12.0-16.0); Mean Corpuscular HGB Conc 33 gm/dL (32-36); Mean Corpuscular Hemoglobin 28 pg (26-34); Mean Corpuscular Volume 87 fL (80-100); Red Blood Count 4.14 m/uL (4.00-5.20); White Blood Count* 11.97 K/uL (4.50-11.00)
[2024-12-14 00:29] LABS: Slide Review Reflex No
[2024-12-14 00:37] LABS: Alanine Aminotransferase* 37 U/L (4-35); Aspartate Amino Transferase* 22 U/L (12-35)
[2024-12-14 00:38] LABS: Blood Urea Nitrogen* 18 mg/dL (5-24)
[2024-12-14 00:49] LABS: Creatinine* 0.7 mg/dL (0.5-1.5); Est. Creatinine Clearance* 106.09; Estimated Glomerular Filt Rate 123 ml/min
--- NOTE | 2024-12-14 00:56 | CRLHL7_ITS ---
For Patients: As a result of the Century Cures Act, medical imaging exams and procedure reports are released immediately into your electronic medical record. You may view this report before your referring provider. If you have questions, please contact your health care provider. INDICATION: Chest pain TECHNIQUE: Chest radiograph 1 view COMPARISON: 12/13/2024 FINDINGS: The sensitivity and specificity of the exam are moderately limited by the patient`s body habitus. Mediastinum: The mediastinum is normal in appearance. The heart silhouette is normal in size and morphology. Lung: Both lungs are unremarkable in appearance with small lung volumes. No sign of pleural effusion seen. No pneumothorax is identified. Bone and Soft tissue: Unremarkable for age. IMPRESSION: 1. No acute cardiopulmonary disease is seen. Dictated by: Lucien Harris MD @ 12/14/2024 01:20:50 (Electronically Signed)
--- NOTE | 2024-12-14 01:32 | P.OBPN_ITS ---
OB - PN:Subj Subjective Date Seen: 12/14/24 Narrative: Fani is a 24yo seen on PPD6 readmitted for preeclampsia with severe features with new onset mild pulmonary edema. was complicated by preeclampsia without severe features, delivery complicated by hemorrhage. Please see my morning rounding note for complete details. Patient noted onset of chest pain at approximately 0045. I requested we pause magnesium infusion, and I presented to the bedside. Patient notes that she is having some mid central chest discomfort and left sided discomfort. She describes the pain as achy, rated 5/10 in severity. She does continue to have mild slight dyspnea, notes this is not significantly worsened. Overall, she notes the symptoms reminiscent to those prior to her ED presentation but are much less severe. She denies any pleuritic chest pain, cough or air hunger. No dizziness or lightheadedness. OB - PN: Obj Exam Physical Exam: Vital signs: Temp Pulse Resp BP Pulse Ox O2 Del Method O2 Flow Rate 98.5 F 75 16 110/73 98 Nasal Cannula 1 12/13/24 21:30 12/14/24 00:56 12/14/24 00:56 12/14/24 00:56 12/14/24 00:56 12/14/24 00:56 12/14/24 00:56 Narrative: Vital signs reviewed and are within normal limits. Patient is currently satting 94% on room air. General: Alert and oriented, no acute distress Psych: Appropriate mood and affect Heart: Regular rate and rhythm, no rubs murmurs or gallops. Lungs: Clear to auscultation throughout, no wheezes, rales or crackles on my exam. Stat EKG was performed. Normal sinus rhythm, heart rate 75 beats per minute. No apparent ST changes or new bundle branch blocks. Stat Chest x-ray: IMPRESSION: 1. No acute cardiopulmonary disease is s een. FINDINGS: The sensitivity and specificity of the exam are moderately limited by the patient`s body habitus. Mediastinum: The mediastinum is normal in appearance. The heart silhouette is normal in size and morphology. Lung: Both lungs are unremarkable in appearance with small lung volumes. No sign of pleural effusion seen. No pneumothorax is identified. Bone and Soft tissue: Unremarkable for age. OB - PN: Obj Data Labs Labs: Laboratory Results - last 24 hr 12/13/24 12/13/24 12/13/24 05:56 07:47 12:01 WBC 8.67 10.00 RBC 4.28 4.56 Hgb 12.1 13.1 Hct 37.0 39.8 MCV 86 87 MCH 28 29 MCHC 33 33 Plt Count 256 270 Sodium 136 Potassium 3.9 Chloride 101 Carbon Dioxide 29 Anion Gap 6 L BUN 18 17 Creatinine 0.7 0.8 Estimated Creat Clear 106.09 92.83 Estimated GFR 123 105 Glucose 106 Calcium 9.1 Magnesium 4.2 H* Total Bilirubin 0.3 AST 22 30 ALT 46 H 46 H Alkaline Phosphatase 61 Troponin I < 0.01 Total Protein 7.0 Albumin 3.7 Lab Acknowledgement Test Added 12/13/24 12/14/24 12/14/24 17:50 00:14 00:14 WBC 11.74 H 11.97 H RBC 4.59 4.14 Hgb 12.9 11.7 L Hct 39.6 35.9 MCV 86 87 MCH 28 28 MCHC 33 33 Plt Count 325 294 Sodium Potassium Chloride Carbon Dioxide Anion Gap BUN 16 18 Creatinine 0.9 0.7 Cancelled Estimated Creat Clear 82.51 106.09 Estimated GFR 91 Glucose Calcium Magnesium 5.5 H* Total Bilirubin AST 27 ALT 44 H Alkaline Phosphatase Troponin I Total Protein Albumin Lab Acknowledgement Test Added 12/14/24 12/14/24 00:14 00:14 WBC RBC Hgb Hct MCV MCH MCHC Plt Count Sodium Potassium Chloride Carbon Dioxide Anion Gap BUN Creatinine Estimated Creat Clear Cancelled Estimated GFR 123 Cancelled Glucose Calcium Magnesium 5.7 H* Total Bilirubin AST 22 ALT 37 H Alkaline Phosphatase Troponin I Total Protein Albumin Lab Acknowledgement OB - PN: A/P Delivery Assessment and Plan (1) Pulmonary edema: Problem details: - noted on CTA of chest 12/12 - received IV Lasix with + diuresis - reassuring TTE on 12/12, reassuring CXR 12/13 - currently not hypoxic - prn Lasix during treatment for pre-eclampsia, continue to monitor Is/Os, daily weights - recommend outpatient evaluation for GIBSON Status: Acute (2) Pre-eclampsia: Problem details: - management per hair cutter team Status: Acute Plan Fani is a 24-year-old seen on day 7 readmitted for preeclampsia with severe features, represented by mild pulmonary edema and 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 Patient responded very well to diuresis, where a.m. and afternoon chest x-ray are negative for evidence of pulmonary edema. She is on magnesium sulfate infusion at 2 grams/hour. Serial pre E labs have been obtained and found to be within normal limits. Patient reported chest pain early this morning, no apparent inciting event. Patient notes that this chest discomfort and dyspnea are reminiscent of her presenting symptoms to the ED, though much less severe. Patient is well- appearing and in no acute distress. Vital signs are entirely within normal limits, satting well on room air. She was maintained on 1 L of supplemental oxygen when asleep, this is decreased O2 need compared to last night. Benign cardiopulmonary exam. Stat EKG and chest x-ray were both within normal limits. Last preeclampsia labs at midnight were normal, mag level 5.7. Explained that she appears clinically stable with no evidence of worsening pulmonary edema. Stat EKG was negative for arrhythmia or changes suggestive of AMI. As such, I do feel it is safe to continue her magnesium sulfate infusion at 2 grams/hour. On reassessment, she notes her symptoms have improved. Recommend continued diuresis with Lasix 10 mg q.6h while on magnesium. Continue pulse ox and Q2H VS. Certainly, if she had worsening or new symptoms, we would have a low threshold to discontinue the magnesium completely. Still, I do feel the benefit outweighs the risk at this moment given her benign evaluation. Will reassess with any change in clinical status. Otherwise, magnesium would be set to turn off at approximately 0900 this morning.
[2024-12-14] MEDS: FUROSEMIDE 20 MG TABLET 10 MG PO (03:12)
[2024-12-14] MEDS: IBUPROFEN 600 MG TABLET PO ×2 (03:12→09:02)
[2024-12-14 06:17] LABS: Hematocrit 38.5 % (33.0-51.0); Hemoglobin* 12.6 gm/dL (12.0-16.0); Mean Corpuscular HGB Conc 33 gm/dL (32-36); Mean Corpuscular Hemoglobin 28 pg (26-34); Mean Corpuscular Volume 87 fL (80-100); Red Blood Count 4.43 m/uL (4.00-5.20); White Blood Count* 10.45 K/uL (4.50-11.00)
[2024-12-14] MEDS: MAGNESIUM Infusion 40 GM/1,000 ML IV.SOLN IVPB (06:17)
[2024-12-14 06:19] LABS: Slide Review Reflex No
[2024-12-14 06:33] LABS: Alanine Aminotransferase* 35 U/L (4-35); Aspartate Amino Transferase* 21 U/L (12-35); Blood Urea Nitrogen* 15 mg/dL (5-24); Creatinine* 0.8 mg/dL (0.5-1.5); Est. Creatinine Clearance* 92.83; Estimated Glomerular Filt Rate 105 ml/min
[2024-12-14] MEDS: ACETAMINOPHEN 500 MG TABLET 1000 MG PO (07:23)
--- NOTE | 2024-12-14 08:25 | PM.OBPNVD1 ---
OB - PN:Subj Subjective Time Seen by Provider: 08:05 Date Seen: 12/14/24 Interval history: S: Fani reports feeling very groggy with the magnesium. She is 8 days from a vaginal delivery complicated by a hemorrhage after induction of labor for preeclampsia without severe features. Her son, Sherely, was transferred to a intensive care unit due to respiratory issues. Denies shortness of breath, chest pain or tightness, blurred vision and weakness. She reports a headache this morning of 4/10 which is the same as it was when she was admitted to the hospital. The headache originally improved on magnesium but overnight worsened. Ibuprofen and Tylenol do not alleviate the headache. It is difficult to tell if the headache is due to preeclampsia or magnesium. Her magnesium is due to be discontinued at approximately 9:00 a.m. today. Will check on her early this afternoon see how she is feeling. Her O2 sats serration is a were 96-97% on room air well I was speaking with her this morning. She denies problems with anxiety or depression. She has a history of anxiety and depression when she was in high school and was treated with multiple different medications including Lexapro and fluoxetine that did not alleviate her symptoms. I briefly talked with her about Zurzuvae which she would consider if her mood symptoms worsen. Her blood pressure has been well controlled on labetalol 100 mg b.i.d.. She states her son was discharge from the an ICU yesterday so would like to be able to go home as soon as possible. If she is doing very well today she could possibly be discharged this evening more likely tomorrow morning. Patient comments OB post-: tolerating diet and flatus present infant status: other (Pumping) [place] feeding status: expressed and bottle feeding OB - PN: Obj Exam Physical Exam: Vital signs: Temp Pulse Resp BP Pulse Ox O2 Del Method O2 Flow Rate 98.0 F 75 16 121/82 95 Room Air 1 12/14/24 07:33 12/14/24 07:33 12/14/24 07:33 12/14/24 07:33 12/14/24 07:12/14/24 07:12/14/24 00:56 Narrative: General: Pleasant, , well groomed woman in no acute distress. Vital signs: Included in her electronic medical record. Heart: Regular rate and rhythm without gallop, rub or murmur. Chest: Clear to auscultation bilaterally. Abdomen: Soft, nontender and nondistended with normal bowel sounds throughout. No CVA or flank tenderness. Fundus firm at 2 cm below the umbilicus in the midline Extremities: No pain or edema. SCDs in place. OB - PN: Obj Data Labs Labs: Laboratory Results - last 24 hr 12/13/24 12/13/24 12/14/24 12:01 17:50 00:14 WBC 10.00 11.74 H 11.97 H RBC 4.56 4.59 4.14 Hgb 13.1 12.9 11.7 L Hct 39.8 39.6 35.9 MCV 87 86 87 MCH 29 28 28 MCHC 33 33 33 Plt Count 270 325 294 BUN 17 16 18 Creatinine 0.8 0.9 0.7 Estimated Creat Clear 92.83 82.51 Estimated GFR 105 91 Magnesium 4.2 H* 5.5 H* AST 30 27 ALT 46 H 44 H Lab Acknowledgement Test Added 12/14/24 12/14/24 12/14/24 00:14 00:14 00:14 WBC RBC Hgb Hct MCV MCH MCHC Plt Count BUN Creatinine Cancelled Estimated Creat Clear 106.09 Cancelled Estimated GFR 123 Cancelled Magnesium 5.7 H* AST 22 ALT 37 H Lab Acknowledgement 12/14/24 06:09 WBC 10.45 RBC 4.43 Hgb 12.6 Hct 38.5 MCV 87 MCH 28 MCHC 33 Plt Count 336 BUN 15 Creatinine 0.8 Estimated Creat Clear 92.83 Estimated GFR 105 Magnesium 5.8 H* AST 21 ALT 35 Lab Acknowledgement OB - PN: A/P Delivery Assessment and Plan (1) Pulmonary edema: Problem details: - noted on CTA of chest 12/12 - received IV Lasix with + diuresis - reassuring TTE on 12/12, reassuring CXR 12/13 - currently not hypoxic - prn Lasix during treatment for pre-eclampsia, continue to monitor Is/Os, daily weights - recommend outpatient evaluation for GIBSON Status: Acute Assessment and Plan: -clear lung retana on 2 chest x-rays during this hospitalization (2) Pre-eclampsia: Problem details: Diagnosed 12/12/24. Pulmonary edema, MAY, mild range BP Status: Acute Assessment and Plan: 1. Magnesium to be discontinued at approximately 9:00 a.m. 2. Continue labetalol 100 mg p.o. b.i.d.. 3. All preeclampsia labs had normalized. 4. Likely discharge tomorrow morning. 5. Reviewed option for Zurzuvae to treat anxiety/depression.
[2024-12-14] MEDS: LABETALOL HCL 100 MG TABLET PO (09:05)
[2024-12-14 12:17] LABS: Hematocrit 37.4 % (33.0-51.0); Hemoglobin* 11.9 gm/dL (12.0-16.0); Mean Corpuscular HGB Conc 32 gm/dL (32-36); Mean Corpuscular Hemoglobin 28 pg (26-34); Mean Corpuscular Volume 88 fL (80-100); Red Blood Count 4.25 m/uL (4.00-5.20); White Blood Count* 8.47 K/uL (4.50-11.00)
[2024-12-14 12:28] LABS: Slide Review Reflex No
[2024-12-14 12:42] LABS: Alanine Aminotransferase* 30 U/L (4-35); Aspartate Amino Transferase* 26 U/L (12-35); Blood Urea Nitrogen* 16 mg/dL (5-24); Creatinine* 0.9 mg/dL (0.5-1.5); Est. Creatinine Clearance* 82.51; Estimated Glomerular Filt Rate 91 ml/min
--- NOTE | 2024-12-14 16:10 | P.DS_ITS ---
DS: Providers Provider Time Seen by Provider: 16:10 Date Seen: 12/14/24 Date of admission: 12/12/24 17:13 Primary care physician: Not a Local Provider Admitting Clinician: Yulia Bullock MD Consults: 12/13/24 07:28 Consult to Physician [CONS] Routine Comment: Consulting Provider: Yoly Wills Has provider been notified: Yes Attending Physician on discharge: Sophie Miller MD DS: Diagnosis Discharge Diagnosis (1) Pulmonary edema: Status: Acute Problem details: - noted on CTA of chest 12/12 - received IV Lasix with + diuresis - reassuring TTE on 12/12, reassuring CXR 12/13 - currently not hypoxic - prn Lasix during treatment for pre-eclampsia, continue to monitor Is/Os, daily weights - recommend outpatient evaluation for GIBSON (2) Pre-eclampsia: Status: Acute Problem details: Diagnosed 12/12/24. Pulmonary edema, MAY, mild range BP Exam Narrative: Exam Narrative: General: Pleasant, , well groomed woman in no acute distress. Vital signs: Included in her electronic medical record. Heart: Regular rate and rhythm without gallop, rub or murmur. Chest: Clear to auscultation bilaterally. Abdomen: Soft, nontender and nondistended with normal bowel sounds throughout. No CVA or flank tenderness. Fundus firm, 2 cm below the umbilicus in the midline. Extremities: No pain or edema. Const: Vital Signs, click to edit/add: Vital Signs - 24 hr 12/13/24 17:53 12/13/24 19:27 12/13/24 21:30 Temperature 98.1 F 98.3 F 98.5 F Pulse Rate [Pulse Oximeter] 92 83 87 Respiratory Rate 20 16 16 Blood Pressure [Ri ght Arm] 113/77 122/83 107/71 Pulse Oximetry 98 94 96 Oxygen Delivery Me thod Room Air Room Air Nasal Cannula Oxygen Flow Rate 1 12/13/24 22:49 12/13/24 23:33 12/14/24 00:56 Temperature Pulse Rate [Pulse Oximeter] 77 75 Respiratory Rate 16 16 Blood Pressure [Ri ght Arm] 110/71 110/73 Pulse Oximetry 94 98 98 Oxygen Delivery Me thod Room Air Nasal Cannula Nasal Cannula Oxygen Flow Rate 1 1 12/14/24 01:20 12/14/24 03:16 12/14/24 05:11 Temperature 98.5 F Pulse Rate [Pulse Oximeter] 78 65 83 Respiratory Rate 16 16 16 Blood Pressure [Ri ght Arm] 113/74 107/70 115/76 Pulse Oximetry 98 93 96 Oxygen Delivery Me thod Room Air Room Air Room Air Oxygen Flow Rate 12/14/24 07:33 12/14/24 09:03 12/14/24 12:45 Temperature 98.0 F 98.1 F Pulse Rate [Pulse Oximeter] 75 72 Respiratory Rate 16 18 Blood Pressure [Ri ght Arm] 121/82 116/79 114/76 Pulse Oximetry 95 92 Oxygen Delivery Me thod Room Air Room Air Oxygen Flow Rate 12/14/24 14:58 Temperature 98.3 F Pulse Rate [Pulse Oximeter] 72 Respiratory Rate 18 Blood Pressure [Ri ght Arm] 124/84 Pulse Oximetry 95 Oxygen Delivery Me thod Room Air Oxygen Flow Rate 1 OB - DS: Summary Hospital Course Hospital Course: Fani is a 24 year old G 2 P 2 admitted on 12/12/2024, day number 5 from a normal spontaneous vaginal delivery at 37 weeks gestation. She had undergone an induction of labor for preeclampsia without severe features and polyhydramnios. She developed shortness of breath and chest pain on the day of admission. In the emergency department she was diagnosed with mild interstitial pulmonary edema on CT scan with a small, right pleural effusion. She also complained of a headache of rating 5/10. ALT 55. After admission she was treated with oxycodone, Reglan and Tylenol for her headache and Lasix for pulmonary edema and small pleural effusion. 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 She received 10 mg of Lasix every 6 hours while on magnesium to prevent fluid overload and recurrent pulmonary edema. Her ALT decreased to 35 on 12/14/2024. Her magnesium infusion was discontinued at 9:00 a.m. 12/14/2024 and her headache completely resolved within 1.5 hours. She had 3 chest x-rays on 12/13/24-12/14/24 that were normal w/o infiltrate. She reports that she feels great now. She would love to be able to go home. Her headache has completely resolved and she has no pain, shortness of breath or chest tightness. I recommended that she check her blood pressure twice a day and there will be some parameters on her discharge paperwork to contact the clinic or go to the emergency department. Time Spent with Patient Time attestation: Total time spent providing and/or coordinating discharge services: Discharge Plan Discharge Disposition: Home, Self-Care Date of Admission: 12/12/24 17:13 Attending Provider on Discharge: Sophie Miller Consulting Providers: Yoly Wills Primary Care Provider: Provider,Not a Local Condition: Improved Anticipated Discharge Date/Time: 12/14/24 18:00 Discharge Medications: New labetalol 100 mg Tablet 100 mg PO BID Qty: 60 1RF Continued promethazine 12.5 mg tablet 25 mg PO Q6H PRN (Reason: nausea and vomiting) Qty: 30 1RF [id number] 32 mg iron-1 mg -120 mg-180 mg combo pack See Rx Instructions PO PER PKG DIR 360 Days Qty: 90 3RF Rx Instructions: PO PER PKG DIR acetaminophen 500 mg Tablet 1,000 mg PO Q6H PRNQty: 0 0RF docusate sodium 100 mg Capsule 100 mg PO DAILY Qty: 0 0RF ibuprofen 600 mg Tablet 600 mg PO Q6H PRNQty: 0 0RF Discharge Orders: Discharge Order (Routine); Ordered 12/14/24 Ordered By: Sophie Miller Patient Education: Preeclampsia and Eclampsia After Delivery (GEN) Additional Instructions: ACTIVITY RESTRICTIONS: Nothing vaginally for 6 weeks: no tampons or intercourse Off Work or School for a minimum of 6 weeks Symptoms to report to doctor: * Bleeding that saturates more than one pad per hour * Passing clots larger than the size of a golf ball * Pain not relieved by prescribed medication * Fever above 100.4 degrees Fahrenheit * A foul vaginal odor * Difficulty in emotions, mood, and functions * Thoughts of hurting yourself and/or * Painful, reddened area in your breast * Any drainage, redness, or tenderness in your IV/epidural site * Severe headache that doesn't improve after taking medications * Changes in vision, including temporary loss of vision, blurred vision, and/or light sensitivity * Upper abdominal pain (usually under ribs on the right side) * Decrease in urination or painful, frequent urinating * Chest pain * Shortness of breath * Tenderness or pain with redness and/swelling in the calf(s) of your leg FOR BLOOD PRESSURE: Check your blood pressure twice a day. [facility] for a BP check?at 1:30 p.m. on 12/19/2024. Go to the emergency room if your blood pressure is >/= 160/110. Contact the clinic for medication management if your blood pressure is >/= 140/90 or </= 90/60. FOLLOW-UP VISITS: 1. 2 week visit to screen for anxiety/depression, discuss contraceptive options answer questions regarding course. 2. 6-week visit for an annual exam. consultation services are available to all mothers and babies for the first year after delivery.? To make an appointment, please call [phone]. Activity Level: Other Discharge Diet: Regular Follow Up Appointments: Provider,Not a Local [Primary Care Provider, Family Practice] [facility] [Outside] Forms: Patient Belongings, MyHealth Info Instructions
== END 2024-12-14 17:30 | disposition home or self-care (01) | DRG 776 ==
LOC: ED 16:59 → OB 18:34
PROVIDERS: Family Medicine; Obstetrics & Gynecology; Admitting Provider Obstetrics & Gynecology; Emergency Provider Emergency Medicine; Visit Provider Obstetrics & Gynecology
DX: O14.15 Severe pre-eclampsia, complicating the puerperium (principal); J81.0 Acute pulmonary edema; O12.05 Gestational edema, complicating the puerperium; O87.4 Varicose veins of lower extremity in the puerperium; I83.812 Varicose veins of left lower extremity with pain; O99.215 Obesity complicating the puerperium
CPT/HCPCS: 36415; 71045; 71046; 71275; 80053; 81001; 82565; 82570; 83605; 83735; 83880; 84156; 84450; 84460; 84484; 84520; 85025; 85027; 85610; 87086; 87631; 93005; 93306; 99283; 99285; A9270; J1938; J2405; J2765; J3475; J7120; Q9967

== ENCOUNTER 2024-12-14 21:13 | Emergency (ER) | payer MEDICAID, SELFPAY ==
--- OUTSIDE RECORDS SUMMARY | 2024-12-14 21:16 | XMS_ITS | Clinical Summary ---
Author Organization [facility] Address [address] [place] [address] Care Team Providers Care Riprap Placing Supervisor Name Role Phone Unassigned, Provider Primary Care Provider Unava ilable Source Comments You are receiving this document as you are listed as the primary care provider,follow-up provider, or the patient has been referred to you for consultation.This is in compliance with the Medicare and[facility] EHR Incentive Program,which states Providers who transition their patient to another setting of careor provider of care or refers their patient to another provider of care shouldprovide summary care record for each transition of care or referral. [facility] Allergies No known active allergies Medications No [...] 36.3 C (97.3 F) 06/23/2022 5:43 PM REHAB THERAPY MANAGER Respiratory Rate - - Oxygen Saturation - - Inhaled Oxygen Concentration - - Weight 71.7 kg (158 lb 1 oz) 06/23/2022 5:43 PM REHAB THERAPY MANAGER Height 167.6 cm (5' 6) 06/23/2022 5:43 PM REHAB THERAPY MANAGER Body Mass Index 25.51 06/23/2022 5:43 PM REHAB THERAPY MANAGER Plan of Treatment Health Maintenance Due Date [...] age to complete this topic Care Teams Riprap Placing Supervisor Relationship Specialty Start Date End Date Unassigned, Provider [address] [place] [id number] PCP - General 01/12/00
--- OUTSIDE RECORDS SUMMARY | 2024-12-14 21:16 | XMS_ITS | Clinical Summary ---
Author Organization [facility] Address [address] [place] [id number] Care Team Providers Care Java Security Engineer Name Role Phone Clinic, No Pcp Or [...] due to other allergic trigger Inhale 1 [place] into both nostrils once daily if needed [...] Immunization Administration Dates Next Due DTaP 1999 [id number] (Pediarix) 1999,1999 HIB PRP-OMP (PedvaxHIB) 09/03/2000,09/17,1999,05/13 Hepatitis [...] on file Legal Sex Female 5:39 AM C4 PLANNER Gender Identity Not on file Sexual Orientation Not on file Occupation Industry Job Start Date Job End Date [employer] Not on file Not on [...] for age 9-26 Completed 12/20/2013, 01/16 Insurance [facility] Member Subscriber Plan / Payer (Ef fective 2019-Present) Name:HuFani Relation to Subscriber:Self Name:Fritz Fani J Payer ID:Not on file Group ID:Not on file Type:Not on file Address: FOR [employer] MEDICAID [facility] [employer] Member Subscriber Plan / Payer (Ef fective 2017-Present) Name:Fani Hu Relation to Subscriber:Self Name:Fani Hu Payer ID:Not on file Group ID:Not on file Type:Not on file [phone] Address: [address] [place] [address] Advance Directives * Full Code (Latest Code Status on File) Date Activated Date Inactivated Comments 09/11/2016 5:26 AM 09/17/2016 5:18 PM Question Answer Comments Code Status Discussion: Not Discussed Care Teams Java Security Engineer Relationship Specialty Start Date End Date Clinic, No Pcp Or . PCP - General 06/30/19
--- OUTSIDE RECORDS SUMMARY | 2024-12-14 21:16 | XMS_ITS | Clinical Summary ---
Author Organization [facility] Address [address] [place] [id number] Care Team Providers Care Milking Machine Technician Name Role Phone No Ref-Primary, Physician [...] Comments Blood Pressure 110/72 04/26/2023 3:22 PM DUMPER BAILER OPERATOR Pulse 92 04/26/2023 3:22 PM DUMPER BAILER OPERATOR Temperature 37.4 C (99.4 F) 04/26/2023 3:22 PM DUMPER BAILER OPERATOR Respiratory Rate 16 04/26/2023 3:22 PM DUMPER BAILER OPERATOR Oxygen Saturation 98% 04/26/2023 3:22 PM DUMPER BAILER OPERATOR Inhaled Oxygen Concentration - - Weight 77.6 kg (171 lb) 04/26/2023 3:22 PM DUMPER BAILER OPERATOR Height 165.1 cm (5' 5) 02/05/2022 11:27 [...] of Phone Billing Address Personal/Family Self 2000 [id number] [facility] [address] [place] [address] [place] * Guarantor: Fani Hu Account Type Relation to Patient Date of Phone Billing Address Personal/Family Self 2000 [id number] [facility] [address] [place] [address] [place] Care Teams Milking Machine Technician Relationship Specialty Start Date End Date No Ref-Primary, Physician PCP - General 02/06/22
--- OUTSIDE RECORDS SUMMARY | 2024-12-14 21:16 | XMS_ITS | Clinical Summary ---
Author Organization [facility] Address [address] [place] [address] Care Team Providers Care Engineering Equipment Operator Name Role Phone Elsewhere, Pcp Primary Care Provider Unavailabl e Source Comments Patient records contain information from all sites at [facility]. For routine questions regarding patient records, call [phone] during business hours, M-F 8:00 AM - 5:00 PM Central Time. Record requests for emergency care only can be directed to [phone] at any time.[facility] Allergies No known active allergies Medications PNV 87-zutg-dxzzzfqpsqy e-dha 29 mg iron-1 mg -350 mg [...] 0.6 oz pur e alcohol) [facility] Utilities Answer Date Recorded In the past 12 months has th e [employer], gas, oil, or water [employer] threatened to shut off services in your [...] your living situation today? I have a [facility] place to live 08/11/2023 Comments No Sex and Gender Information Value Date Recorded Sex Assigned at Female 08/15/2023 5:03 PM CDT Legal Sex Female 7:03 PM ASP NET DEVELOPER Gender Identity Female 08/15/2023 5:03 PM CDT Sexual Orientation Choose not to disclose 2023 5:03 PM CDT Last Filed Vital Signs Vital Sign Reading Time Taken Comments Blood Pressure 117/79 08/16/2023 3:09 PM CDT Pulse 103 08/16/2023 3:09 PM CDT Temperature 36.1 C (97 F) 06/25/2023 2:33 PM ASP NET DEVELOPER Respiratory Rate 14 06/14/2023 3:33 PM ASP NET DEVELOPER Oxygen Saturation 98% 06/25/2023 2:33 PM ASP NET DEVELOPER Inhaled Oxygen Concentration - - Weight 95 kg (209 lb 6.4 oz) 08/16/2023 3:09 PM CDT Height 164 cm (5' 4.57) 06/15/2023 3:48 PM ASP NET DEVELOPER Body Mass Index 35.31 06/15/2023 3:48 PM ASP NET DEVELOPER Plan of Treatment Health Maintenance Due [...] SCRN , S Routine 06/01/2023 10:15 AM ASP NET DEVELOPER Examination Normal First First Trimester (HCC) HIV-1/-2 AG AND AB SCRN, PLASMA Routine 06/01/2023 10:15 AM ASP NET DEVELOPER Examination Normal First First Trimester (HCC) THINPREP SCREEN HPV REFLEX Routine 06/01/2023 9:24 AM ASP NET DEVELOPER Examination Normal First First Trimester (HCC) CHLAMYDIA/GONORRHOE AE AMPLIFIED RNA Routine 06/01/2023 9:23 AM ASP NET DEVELOPER Examination Normal First First Trimester (HCC) from Last 3 Months or Most Recently Relevant to Health Maintenance Results * Hepatitis C Virus Antibody Screen (06/01/2023 10:15 AM ASP NET DEVELOPER) HCV Ab Scrn , S Negative Negative 06/02/2023 8:43 AM ASP NET DEVELOPER [facility] Comment:Wehrqh-ms-ugvfmx rat io is <1.00. Blood (Blood, Venous) 06/01/2023 10:15 AM ASP NET DEVELOPER 06/02/2023 7:30 AM ASP NET DEVELOPER us Valerie Fuentes APRN C.N.P., M.S.N. LAB MICROBIO LOGY - BLOOD ORDERABLES Final Result [facility] [address] [place] [address] [facility] [address] [place] [address] * HIV-1/-2 Ag and Ab Scrn, Plasma (06/01/2023 10:15 AM ASP NET DEVELOPER) HIV Ag/Ab Scrn, P Negative Negative 06/01/2023 7:40 PM ASP NET DEVELOPER [facility] Comment: Negative result does not rule out HIV infection. If exposure to HIV infection occurred <14 days ago, contact the laboratory to request addition of HIV-1/HIV-2 RNA detection , Plasma (HPP12). HIV-1 p24 Ag Scrn, P Negative Negative 06/01/2023 7:40 PM ASP NET DEVELOPER [facility] Comment: Negative result does not rule out HIV infection. If exposure to HIV infection occurred <14 days ago, contact the laboratory to request addition of HIV-1/HIV-2 RNA detection , Plasma (HPP12). HIV-1 Ab Scrn, P Negative Negative 06/01/2023 7:40 PM ASP NET DEVELOPER [facility] Comment: Negative result does not rule out HIV infection. If exposure to HIV infection occurred <14 days ago, contact the laboratory to request addition of HIV-1/HIV-2 RNA detection , Plasma (HPP12). HIV-2 Ab Scrn, P Negative Negative 06/01/2023 7:40 PM ASP NET DEVELOPER [facility] Comment: Negative result does not rule out HIV infection. If exposure to HIV infection occurred <14 days ago, contact the laboratory to request addition of HIV-1/HIV-2 RNA detection , Plasma (HPP12). Blood (Blood, Venous) 06/01/2023 10:15 AM ASP NET DEVELOPER 06/01/2023 6:09 PM ASP NET DEVELOPER us Valerie Fuentes APRN, C.N.P., M.S.N. LAB MICROBIO LOGY - BLOOD ORDERABLES Final Result [facility] [address] [place] [id number], [facility] [place] [address] [place] [id number] * ThinPrep Screen HPV Reflex (06/01/2023 9:24 AM ASP NET DEVELOPER) 06/04/2023 1:51 PM ASP NET DEVELOPER [facility] Report electronically signed by Kori Calhoun MD I verify that I have examined all relevant slides/materials for the specimen(s) and rendered or confirmed the diagnosis. 06/04/2023 1:51 PM ASP NET DEVELOPER [facility] Gross Description Received specimen in a ThinPrep vial. 06/04/2023 1:51 PM ASP NET DEVELOPER [facility] Pap Test Source Cervical/Endocervi adria 06/04/2023 1:51 PM ASP NET DEVELOPER [facility] Hormone Therapy/Contracep tives None/Not known 06/04/2023 1:51 PM ASP NET DEVELOPER [facility] Interpretation Cervical/Endocervi adria (ThinPrep): Satisfactory for Evaluation Negative for Intraepithelial Lesion or Malignancy Reactive cellular changes associated with: Reparative or inflammatory changes Shift in cassie suggestive of bacterial vaginosis 06/04/2023 1:51 PM ASP NET DEVELOPER [facility] Thin Prep Vial (Cervix/Endocerv ix) 06/01/2023 9:24 AM ASP NET DEVELOPER 06/02/2023 7:58 AM ASP NET DEVELOPER us Kiara Jacome APRN.N.Shaq., M.S.N. LAB PAP PATH DX ORDERABLES Final Result Performing Organization Address City/[facility]/ZIP Co de Phone Number [facility] [address] [place] [address], [place] [facility] [address] [place] [address] * Chlamydia / Gonorrhoeae Amplified RNA (06/01/2023 9:23 AM ASP NET DEVELOPER) Source Swab, Vagina 06/01/2023 11:45 PM ASP NET DEVELOPER [facility] Chlamydia trachomatis amplified RNA Negative Negative 06/01/2023 11:45 PM ASP NET DEVELOPER [facility] Source Swab, Vagina 06/01/2023 11:45 PM ASP NET DEVELOPER [facility] Neisseria gonorrhoeae amplified RNA Negative Negative 06/01/2023 11:45 PM ASP NET DEVELOPER [facility] Swab (Vagina) 06/01/2023 9:2 3 AM ASP NET DEVELOPER 06/01/2023 2:51 PM ASP NET DEVELOPER us Kiara Jacome APRN.N.P., M.S.N. LAB MICROBIOLOGY - GENERAL ORDERABLES Final Result [facility] [address] [place] [address], [facility] [address] [facility] [address] [place] [phone] from Last 3 Months or Most Recently Relevant to Health Maintenance Insurance * Guarantor: Fani Hu Account Type Relation to Patient Date of Phone Billing Address Personal/Family Self 2000 [address] [facility] [address] [place] [address] [facility] Care Teams Engineering Equipment Operator Relationship Specialty Start Date End Date Elsewhere, Pcp PCP - General 11/24/21
[2024-12-14 21:24] VITALS: BP 128/77; PULSE 96; RESP 16; TEMP 37; O2SAT 98; BMI 41.2
--- NOTE | 2024-12-14 21:58 | CRLHL7_ITS ---
For Patients: As a result of the Century Cures Act, medical imaging exams and procedure reports are released immediately into your electronic medical record. You may view this report before your referring provider. If you have questions, please contact your health care provider. INDICATION: Diffuse numbness TECHNIQUE: CT Head without i.v. contrast. Coronal and sagittal reformats were obtained. COMPARISON: None FINDINGS: CSF space: The ventricles are normal for age. Brain: No evidence of mass, acute infarction or hemorrhage is seen. No mass-effect or midline shift is seen. The brain parenchyma is otherwise normal in appearance with preservation of the hastings-white matter junction. Calvarium: The visualized paranasal sinuses are well aerated. The mastoid air cells are clear. The visualized orbits are grossly unremarkable. The calvarium is unremarkable in appearance with no fractures identified. IMPRESSION: 1. No evidence of acute infarction, intracranial hemorrhage, or mass-effect seen. Please note that all CT scans at this facility use dose modulation, iterative reconstruction, and/or weight-based dosing when appropriate to reduce radiation dose to as low as reasonably achievable. Dictated by: Lucien Harris MD @ 12/14/2024 22:35:49 (Electronically Signed)
[2024-12-14 22:19] LABS: Hematocrit 35.9 % (33.0-51.0); Hemoglobin* 11.6 gm/dL (12.0-16.0); Immature Granulocytes Abs Auto 0.11 K/uL (0.00-0.30); Immature Granulocytes Pct Auto 1.2 %; Mean Corpuscular HGB Conc 32 gm/dL (32-36); Mean Corpuscular Hemoglobin 28 pg (26-34); Mean Corpuscular Volume 87 fL (80-100); RDW Coefficient of Variation % 12.2 % (11.5-15.5); Red Blood Count 4.11 m/uL (4.00-5.20); White Blood Count* 9.12 K/uL (4.50-11.00)
--- NOTE | 2024-12-14 22:19 | ED.GENADULT ---
HPI - General Adult General Date Seen: 12/14/24 Chief complaint: Unspecified Complaint, Adult Stated complaint: pre eclampsia Time Seen by Provider: 12/14/24 21:46 Source: patient and family Mode of arrival: ambulatory Limitations: no limitations History of Present Illness HPI narrative: Patient is a 24-year-old female who is and is 7 days presenting to emergency department for paresthesias and concern of slurred speech. She was hospitalized for preeclampsia and discharged today around 17:00. She was doing well at this time. At about 20:30 she was at [employer] dinner when she suddenly had numbness of her mouth, hands, feet. Describes as a tingling sensation. Not having any chest pain or shortness of breath. Has not had a headache or any other symptoms. Does states she has symptoms like this yesterday that resolved while she was in the hospital. Her brother is in the room with her is concerned she is having petite grand mal seizures and cerebral edema. She denies any other concerns at this time. She does have a rather flat affect. Denies headache, abdominal pain diarrhea weakness. Related Data Previous Rx's ?Medication ?Instructions ?Recorded PNV 86-iron ps 32 mg iron-folic 1 See Rx Instructions PO PER PKG DIR 12/15/23 mg-dha 120 mg-epa 180 mg oral pack 360 days #90 ea promethazine 12.5 mg tablet 25 mg (2 x 12.5 mg) PO Q6H PRN 09/26/24 nausea and vomiting #30 tabs acetaminophen 500 mg tablet 1,000 mg (2 x 500 mg) PO Q6H PRN 12/09/24 #0 tabs docusate sodium 100 mg capsule 100 mg PO DAILY #0 caps 12/09/24 ibuprofen 600 mg tablet 600 mg PO Q6H PRN #0 tabs 12/09/24 labetalol 100 mg tablet 100 mg PO BID #60 tabs 12/14/24 Allergies Allergy/AdvReac Type Severity Reaction Status Date / Time No Known Drug Allergies Allergy Verified 12/14/24 21:27 Review of Systems Status of ROS: Reports: 10 or more systems reviewed and unremarkable except as noted in History and below [facility] Medical History Suicide and self-inflicted injury by cutting and piercing instrument (09/11/16) ?X78.9XXA - Intentional self-harm by unspecified sharp object, initial encounter (ICD-10) MDD (major depressive disorder), recurrent episode, moderate (08/20/16) ?F33.1 - Major depressive disorder, recurrent, moderate (ICD-10) Environmental allergies (07/28/11) ?Z91.09 - Other allergy status, other than to drugs and biological substances (ICD-10) Alcohol abuse (09/15/16) ?F10.10 - Alcohol abuse, uncomplicated (ICD-10) hemorrhage ?O72.1 - Other immediate hemorrhage (ICD-10) (normal spontaneous vaginal delivery) ?O80 - Encounter for full-term uncomplicated delivery (ICD-10) , high-risk ?O09.90 - Supervision of high risk , unspecified, unspecified trimester (ICD-10) Nausea and vomiting during ?O21.9 - Vomiting of , unspecified (ICD-10) Gestational hypertension ?O13.9 - Gestational [-induced] hypertension without significant proteinuria, unspecified trimester (ICD-10) Pre-eclampsia affecting , antepartum ?O14.90 - Unspecified pre-eclampsia, unspecified trimester (ICD-10) Polyhydramnios affecting ?O40.9XX0 - Polyhydramnios, unspecified trimester, not applicable or unspecified (ICD-10) Perineal laceration during delivery (12/13/23) ?O70.9 - Perineal laceration during delivery, unspecified (ICD-10) GERD (gastroesophageal reflux disease) ?K21.9 - Gastro-esophageal reflux disease without esophagitis (ICD-10) Back pain affecting ?O99.891 - Other specified diseases and conditions complicating (ICD-10) ?M54.9 - Dorsalgia, unspecified (ICD-10) Rh negative status during ?O26.899 - Other specified related conditions, unspecified trimester (ICD-10) ?Z67.91 - Unspecified blood type, rh negative (ICD-10) Anxiety and depression ?F41.9 - Anxiety disorder, unspecified (ICD-10) ?F32.A - Depression, unspecified (ICD-10) Surgical History S/P lumbar fusion (04/30/17) ?Z98.1 - Arthrodesis status (ICD-10) H/O Spinal surgery ?Z98.890 - Other specified postprocedural states (ICD-10) Social History Narrative: SOCIAL HISTORY: 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 Marital status: Significant other. Baptist/cultural needs: no. Chemical or radiation exposure: no. Pre- tobacco use: no. Pre- alcohol use: no. Current tobacco use: no. Current alcohol use: no. Recreational drug use: no. Dietary restrictions: no. Blood transfusion acceptable in an emergency: yes. PSYCHOSOCIAL HISTORY: History of depression or currently depressed: Yes, history. Current or past physical, emotional, or sexual mistreatment: Denies. Problems that will make it hard to make it to appointments: Denies. What is your current living situation?: I presently have a place to live Problems where you live: no known problems In the past 12 months, utilities in danger of being shut off: no In past 12 months, lack of transportation kept you from medical appts, meetings, work, or getting things needed for daily living: no In the past 12 mos, have been you worried that your food would run out before you had money to buy more?: never true In the past 12 mos, the food you bought just didn't last and you didn't have money to buy more?: never true Smoking Status: Never smoker How often do you have a drink containing alcohol: never AUDIT-C Alcohol total score: 0 Non-prescribed substance use: denies use How often does anyone, including family, friends and others, physically hurt you: never How often does anyone, including family, friends and others, insult or talk down to you: never How often does anyone, including family, friends and others, threaten you with harm: never How often does anyone, including family, friends and others, scream or curse at you: never Exam Narrative: Exam Narrative: Const: Well-nourished, Well-developed, in mild distress Eyes: PERRL, no conjunctival injection, and symmetrical lids HENT: Atraumatic external nose and ears. Moist mucous membranes. Neck: Symmetric, trachea midline, No thyromegaly. CVS: RRR, No murmurs or gallops. Peripheral pulses 2+ and equal in all extremities RESP: Unlabored respiratory effort. Clear to auscultation bilaterally. GI: Nontender/Nondistended, No rebound or guarding. MSK:Extremities w/o deformity, Normal Active ROM Skin: Warm, Dry. No rashes or lesions. Neuro: Normal Muscle tone, Cranial nerves 2-12 grossly intact, normal nkmz-ui-aqwc, normal gdltgi-zb-ytqm, normal gait, normal strength 5/5 upper lower extremities bilaterally, normal sensation upper and lower extremities bilaterally, normal rapid alternating movements. Psych: Awake, Alert, & Oriented x3. Appropriate mood and affect. Const: Vital Signs, click to edit/add: Vital Signs - 24 hr 12/14/24 21:24 12/14/24 23:39 Temperature 98.6 F Pulse Rate [Pulse Oximeter] 96 80 Respiratory Rate 16 16 Blood Pressure [Ri t Upper Arm] 128/77 141/85 H Pulse Oximetry 98 99 Oxygen Delivery Me thod Room Air Room Air Course Vital Signs Vital signs: Initial Vital Signs Temperature 98.6 F 12/14/24 21:24 Temperature Source Temporal Artery Scan 12/14/24 21:24 Pulse Rate 96 12/14/24 21:24 Respiratory Rate 16 12/14/24 21:24 Blood Pressure 128/77 12/14/24 21:24 Blood Pressure Mean 94 12/14/24 21:24 Blood Pressure Position Sitting 12/14/24 21:24 Pulse Oximetry 98 12/14/24 21:24 Oxygen Delivery Method Room Air 12/14/24 21:24 Vital Signs Temperature 98.6 F 12/14/24 21:24 Pulse Rate 96 12/14/24 21:24 Respiratory Rate 16 12/14/24 21:24 Blood Pressure 128/77 12/14/24 21:24 Pulse Oximetry 98 12/14/24 21:24 Oxygen Delivery Method Room Air 12/14/24 21:24 Temperature 98.6 F 12/14/24 21:24 Pulse Rate 80 12/14/24 23:39 Respiratory Rate 16 12/14/24 23:39 Blood Pressure 141/85 H 12/14/24 23:39 Pulse Oximetry 99 12/14/24 23:39 Oxygen Delivery Method Room Air 12/14/24 23:39 Medications Administered Medications: Discontinued Medications Generic Name Dose Route Start Last Admin Trade Name Samson PRN Reason Stop Dose Admin Calcium Carbonate 2,000 mg 12/14/24 23:06 12/14/24 23:36 Calcium Carbonate 500 Mg Chew PO 12/14/24 23:07 2,000 mg ONCE ONE Administration Medical Decision Making MDM Narrative Medical decision making narrative: Patient is a 24-year-old female presenting to the emergency department for concerns of numbness of her fingertips and mouth. Her brother is adamant that the patient needs a CT scan of her head. I explained this is very unlikely to show any abnormalities in would be unnecessary radiation as focal seizures do not show up as numbness of the face and fingertips. After further discussion they still want the CT scan so it will be ordered. Will also order basic lab work to look for signs of electrolyte abnormalities. She is having no signs of preeclampsia at this time with normal blood pressures. Lab work returns with a magnesium 2.8 which is much better than was this morning prior to discharge. Her liver function tests are also improved. Her calcium was 7.8 and her corrected calcium is 8. This mild hypocalcemia could be the cause of her symptoms. Will check a phosphorus and PTH level. EKG ordered to look for signs of QT prolongation. EKG shows no acute concerning abnormalities. Will give her 2000 mg of calcium carbonate. Before she even got this she states she is feeling better already. Some of her symptoms could also been related to anxiety. A PTH did come back slightly elevated which is expected with her low calcium as her body is time to compensate and create more calcium. At this time is only her fingertips that are slightly numb. Do believe she is safe for discharge and she is agreeable to this plan. Her blood pressure did increase slightly prior to discharge but she is due for her blood pressure medication so will give a dose prior to discharge as she has not picked it up yet Lab Data Labs: Lab Results 12/14/24 12/14/24 Range/Units 22:14 22:46 WBC 9.12 (4.50-11.00) K/uL RBC 4.11 (4.00-5.20) m/uL Hgb 11.6 L (12.0-16.0) gm/dL Hct 35.9 (33.0-51.0) % MCV 87 (80-100) fL MCH 28 (26-34) pg MCHC 32 (32-36) gm/dL RDW Coeff of Helga 12.2 (11.5-15.5) % Plt Count 310 (140-440) K/uL Neut % (Auto) 74.3 H (42.0-72.0) % Lymph % (Auto) 15.2 L (20-44) % Mcculloch % (Auto) 8.9 (0.0-11.0) % Eos % (Auto) 0.2 (0.0-7.0) % Baso % (Auto) 0.2 (0.0-3.0) % Neut # (Auto) 6.80 (1.7-7.0) K/uL Lymph # (Auto) 1.40 (0.90-2.90) K/uL Mcculloch # (Auto) 0.80 (0.00-0.90) K/UL Eos # (Auto) 0.02 (0.00-0.50) K/uL Baso # (Auto) 0.02 (0.00-0.30) K/uL Abs Immat Gran (auto) 0.11 (0.00-0.30) K/uL Imm/Tot Granulo (auto) 1.2 % Sodium 138 (135-149) mmol/L Potassium 3.4 L (3.6-5.1) mmol/L Chloride 105 (96-114) mmol/L Carbon Dioxide 27 (20-32) mmol/L Anion Gap 6 L (7-15) mEq/L BUN 16 (5-24) mg/dL Creatinine 0.8 (0.5-1.5) mg/dL Estimated Creat Clear 92.83 Estimated GFR 105 ml/min Glucose 123 H (60-115) mg/dL Calcium 7.8 L (8.4-10.6) mg/dL Phosphorus 3.5 (2.5-4.5) mg/dL Magnesium 2.8 H (1.5-2.6) mg/dL Total Bilirubin 0.3 (0.1-1.5) mg/dL Direct Bilirubin 0.2 (0.0-0.5) mg/dL AST 20 (12-35) U/L ALT 27 (4-35) U/L Alkaline Phosphatase 62 (40-150) U/L Total Protein 6.9 (6.0-8.3) g/dL Albumin 3.7 (3.3-5.0) g/dL PTH Intact 103.7 H (14.2-75.2) pg/mL Lab Acknowledgement Test Added Imaging Data CT scan - head: Attestation: I have reviewed the pertinent imaging results. Radiologist's impression: 1. No evidence of acute infarction, intracranial hemorrhage, or mass-effect seen. Please note that all CT scans at this facility use dose modulation, iterative reconstruction, and/or weight-based dosing when appropriate to reduce radiation dose to as low as reasonably achievable. Dictated by: Lucien Harris MD @ 12/14/2024 22:35:49 ECG Data Attestation: I personally reviewed and interpreted this ECG as follows: Prior ECG tracings: available for review Interpretation: Normal sinus rhythm with rate 71 beats per minute, normal intervals, normal axis, no ST or T-wave abnormalities. Appears similar previous EKGs on file Discharge Plan Discharge Clinical Impression: Hypocalcemia Patient Disposition: Home, Self-Care Condition: Improved Instructions: Hypocalcemia (ED) Additional Instructions: Is hard to say for certain but some of your numbness sensation may have been related to your low calcium. It was mildly low and I do recommend following up with your primary care provider. Return to emergency department for new or worsening symptoms Prescriptions: No Action promethazine 12.5 mg tablet 25 mg PO Q6H PRN (Reason: nausea and vomiting) Qty: 30 1RF 74-adjn-bmwom-dha-epa 32 mg iron-1 mg -120 mg-180 mg combo pack See Rx Instructions PO PER PKG DIR 360 Days Qty: 90 3RF Rx Instructions: PO PER PKG DIR labetalol 100 mg Tablet 100 mg PO BID Qty: 60 1RF acetaminophen 500 mg Tablet 1,000 mg PO Q6H PRNQty: 0 0RF docusate sodium 100 mg Capsule 100 mg PO DAILY Qty: 0 0RF ibuprofen 600 mg Tablet 600 mg PO Q6H PRNQty: 0 0RF Follow Up/Referrals: Provider,Not a Local [Primary Care Provider, Family Practice] Stand Alone Forms: MyHealth Info Instructions
[2024-12-14 22:21] LABS: Lymphocytes Absolute Auto 1.40 K/uL (0.90-2.90); Slide Review Reflex No
[2024-12-14 22:26] LABS: Albumin* 3.7 g/dL (3.3-5.0); Chloride* 105 mmol/L (96-114); Potassium* 3.4 mmol/L (3.6-5.1); Sodium* 138 mmol/L (135-149)
[2024-12-14 22:28] LABS: Blood Urea Nitrogen* 16 mg/dL (5-24); Creatinine* 0.8 mg/dL (0.5-1.5); Est. Creatinine Clearance* 92.83; Estimated Glomerular Filt Rate 105 ml/min
[2024-12-14 22:29] LABS: Alanine Aminotransferase* 27 U/L (4-35); Alkaline Phosphatase* 62 U/L (40-150); Anion Gap 6 mEq/L (7-15); Aspartate Amino Transferase* 20 U/L (12-35); Bilirubin Direct* 0.2 mg/dL (0.0-0.5); Bilirubin Total* 0.3 mg/dL (0.1-1.5); Calcium* 7.8 mg/dL (8.4-10.6); Carbon Dioxide* 27 mmol/L (20-32); Glucose* 123 mg/dL (60-115); Total Protein* 6.9 g/dL (6.0-8.3)
[2024-12-14 23:34] LABS: PTH Intact* 103.7 pg/mL (14.2-75.2)
[2024-12-14] MEDS: CALCIUM CARBONATE 500 MG CHEW 2000 MG PO (23:36)
[2024-12-14 23:39] VITALS: BP 141/85; PULSE 80; RESP 16; O2SAT 99
[2024-12-15] MEDS: LABETALOL HCL 100 MG TABLET PO
--- OUTSIDE RECORDS SUMMARY | 2024-12-15 10:35 | XMS_ITS | Clinical Summary ---
Author Organization [facility] Address [address] [place] [address] Care Team Providers Care Geospatial Analyst Name Role Phone No Ref-Primary, Physician Primary [...] Comments Blood Pressure 110/72 04/26/2023 3:22 PM ACCOUNT DEVELOPMENT SPECIALIST Pulse 92 04/26/2023 3:22 PM ACCOUNT DEVELOPMENT SPECIALIST Temperature 37.4 C (99.4 F) 04/26/2023 3:22 PM ACCOUNT DEVELOPMENT SPECIALIST Respiratory Rate 16 04/26/2023 3:22 PM ACCOUNT DEVELOPMENT SPECIALIST Oxygen Saturation 98% 04/26/2023 3:22 PM ACCOUNT DEVELOPMENT SPECIALIST Inhaled Oxygen Concentration - - Weight 77.6 kg (171 lb) 04/26/2023 3:22 PM ACCOUNT DEVELOPMENT SPECIALIST Height 165.1 cm (5' 5) 02/05/2022 11:27 [...] of Phone Billing Address Personal/Family Self [id number] [facility] [address] [place] [address] MEDICAID [place] * Guarantor: Fani Hu Account Type Relation to Patient Date of Phone Billing Address Personal/Family Self [id number] [facility] [address] [place] [address] [place]ICAID [place] Care Teams Geospatial Analyst Relationship Specialty Start Date End Date No Ref-Primary, Physician PCP - General 02/06/22
--- OUTSIDE RECORDS SUMMARY | 2024-12-15 10:35 | XMS_ITS | Clinical Summary ---
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 Gender Identity Not on file Sexual Orientation Not on file Occupation Industry Job Start Date Job End Date [employer] Not on file Not on [...] for age 9-26 Completed 12/20/2013, 01/16 Insurance [facility] Member Subscriber Plan / Payer (Ef fective 2019-Present) Name:HuFani Relation to Subscriber:Self Name:Fritz Fani J Payer ID:Not on file Group ID:Not on file Type:Not on file Address: FOR [employer] MEDICAID [facility] [employer] Member Subscriber Plan / Payer (Ef fective 2017-Present) Name:Fani Hu Relation to Subscriber:Self Name:Fani Hu Payer ID:Not on file Group ID:Not on file Type:Not on file [phone] Address: [address] [place] [address] Advance Directives * Full Code (Latest Code Status on File) Date Activated Date Inactivated Comments 09/11/2016 5:26 AM 09/17/2016 5:18 PM Question Answer Comments Code Status Discussion: Not Discussed Care Teams Supervisor Weaving Relationship Specialty Start Date End Date Clinic, No Pcp Or . PCP - General 06/30/19
--- OUTSIDE RECORDS SUMMARY | 2024-12-15 10:35 | XMS_ITS | Clinical Summary ---
Author Organization [facility] Address [address] [place] [address] Care Team Providers Care Financial Services Associate Name Role Phone Unassigned, Provider Primary Care Provider Unava ilable Source Comments You are receiving this document as you are listed as the primary care provider,follow-up provider, or the patient has been referred to you for consultation.This is in compliance with the Medicare and[facility] Incentive Program,which states Providers who transition their patient to another setting of careor provider of care or refers their patient to another provider of care shouldprovide summary care record for each transition of care or referral. [email or web address] Allergies No known active allergies Medications No [...] 36.3 C (97.3 F) 06/23/2022 5:43 PM COKE DRAWER Respiratory Rate - - Oxygen Saturation - - Inhaled Oxygen Concentration - - Weight 71.7 kg (158 lb 1 oz) 06/23/2022 5:43 PM COKE DRAWER Height 167.6 cm (5' 6) 06/23/2022 5:43 PM COKE DRAWER Body Mass Index 25.51 06/23/2022 5:43 PM COKE DRAWER Plan of Treatment Health Maintenance Due Date [...] age to complete this topic Care Teams Financial Services Associate Relationship Specialty Start Date End Date Unassigned, Provider [address] [place] [id number] PCP - General 01/12/00
--- OUTSIDE RECORDS SUMMARY | 2024-12-15 10:35 | XMS_ITS | Clinical Summary ---
Author Organization [facility] Address [address] [place] [address] Care Team Providers Care Radio Commentator Name Role Phone Elsewhere, Pcp Primary Care Provider Unavailabl e Source Comments Patient records contain information from all sites at [facility]. For routine questions regarding patient records, call [phone] during business hours, M-F 8:00 AM - 5:00 PM Central Time. Record requests for emergency care only can be directed to [phone] at any time.[facility] Allergies No known active allergies Medications PNV 92-ktrc-ddsfycxdzbw e-dha 29 mg iron-1 mg -350 mg [...] drink = 0.6 oz pur e alcohol) [facility] Utilities Answer Date Recorded In the past 12 months has th e [employer], gas, oil, or water [employer] threatened to shut off services in your [...] your living situation today? I have a [facility] place to live 08/11/2023 Comments No Sex and Gender Information Value Date Recorded Sex Assigned at Female 08/15/2023 5:03 PM CDT Legal Sex Female 7:03 PM AUDIO VISUAL AIDS DIRECTOR Gender Identity Female 08/15/2023 5:03 PM CDT Sexual Orientation Choose not to disclose 2023 5:03 PM CDT Last Filed Vital Signs Vital Sign Reading Time Taken Comments Blood Pressure 117/79 08/16/2023 3:09 PM CDT Pulse 103 08/16/2023 3:09 PM CDT Temperature 36.1 C (97 F) 06/25/2023 2:33 PM AUDIO VISUAL AIDS DIRECTOR Respiratory Rate 14 06/14/2023 3:33 PM AUDIO VISUAL AIDS DIRECTOR Oxygen Saturation 98% 06/25/2023 2:33 PM AUDIO VISUAL AIDS DIRECTOR Inhaled Oxygen Concentration - - Weight 95 kg (209 lb 6.4 oz) 08/16/2023 3:09 PM CDT Height 164 cm (5' 4.57) 06/15/2023 3:48 PM AUDIO VISUAL AIDS DIRECTOR Body Mass Index 35.31 06/15/2023 3:48 PM AUDIO VISUAL AIDS DIRECTOR Plan of Treatment Health Maintenance Due Date [...] SCRN , S Routine 06/01/2023 10:15 AM AUDIO VISUAL AIDS DIRECTOR Examination Normal First First Trimester (HCC) HIV-1/-2 AG AND AB SCRN, PLASMA Routine 06/01/2023 10:15 AM AUDIO VISUAL AIDS DIRECTOR Examination Normal First First Trimester (HCC) THINPREP SCREEN HPV REFLEX Routine 06/01/2023 9:24 AM AUDIO VISUAL AIDS DIRECTOR Examination Normal First First Trimester (HCC) CHLAMYDIA/GONORRHOE AE AMPLIFIED RNA Routine 06/01/2023 9:23 AM AUDIO VISUAL AIDS DIRECTOR Examination Normal First First Trimester (HCC) from Last 3 Months or Most Recently Relevant to Health Maintenance Results * Hepatitis C Virus Antibody Screen (06/01/2023 10:15 AM AUDIO VISUAL AIDS DIRECTOR) HCV Ab Scrn , S Negative Negative 06/02/2023 8:43 AM AUDIO VISUAL AIDS DIRECTOR [facility] Comment:Fusbpj-et-jchryk rat io is <1.00. Blood (Blood, Venous) 06/01/2023 10:15 AM AUDIO VISUAL AIDS DIRECTOR 06/02/2023 7:30 AM AUDIO VISUAL AIDS DIRECTOR us Valerie Fuentes APRN C.N.P., M.S.N. LAB MICROBIO LOGY - BLOOD ORDERABLES Final Result [facility] [address] [place] [address] [facility] [address] [place] [address] * HIV-1/-2 Ag and Ab Scrn, Plasma (06/01/2023 10:15 AM AUDIO VISUAL AIDS DIRECTOR) HIV Ag/Ab Scrn, P Negative Negative 06/01/2023 7:40 PM AUDIO VISUAL AIDS DIRECTOR [facility] Comment: Negative result does not rule out HIV infection. If exposure to HIV infection occurred <14 days ago, contact the laboratory to request addition of HIV-1/HIV-2 RNA detection , Plasma (HPP12). HIV-1 p24 Ag Scrn, P Negative Negative 06/01/2023 7:40 PM AUDIO VISUAL AIDS DIRECTOR [facility] Comment: Negative result does not rule out HIV infection. If exposure to HIV infection occurred <14 days ago, contact the laboratory to request addition of HIV-1/HIV-2 RNA detection , Plasma (HPP12). HIV-1 Ab Scrn, P Negative Negative 06/01/2023 7:40 PM AUDIO VISUAL AIDS DIRECTOR [facility] Comment: Negative result does not rule out HIV infection. If exposure to HIV infection occurred <14 days ago, contact the laboratory to request addition of HIV-1/HIV-2 RNA detection , Plasma (HPP12). HIV-2 Ab Scrn, P Negative Negative 06/01/2023 7:40 PM AUDIO VISUAL AIDS DIRECTOR [facility] Comment: Negative result does not rule out HIV infection. If exposure to HIV infection occurred <14 days ago, contact the laboratory to request addition of HIV-1/HIV-2 RNA detection , Plasma (HPP12). Blood (Blood, Venous) 06/01/2023 10:15 AM AUDIO VISUAL AIDS DIRECTOR 06/01/2023 6:09 PM AUDIO VISUAL AIDS DIRECTOR us Valerie Fuentes APRN, C.N.P., M.S.N. LAB MICROBIO LOGY - BLOOD ORDERABLES Final Result [facility] [address] [place] [phone], [facility] [address] [place] [id number] * ThinPrep Screen HPV Reflex (06/01/2023 9:24 AM AUDIO VISUAL AIDS DIRECTOR) 06/04/2023 1:51 PM AUDIO VISUAL AIDS DIRECTOR [facility] Report electronically signed by Kori Calhoun MD I verify that I have examined all relevant slides/materials for the specimen(s) and rendered or confirmed the diagnosis. 06/04/2023 1:51 PM AUDIO VISUAL AIDS DIRECTOR [facility] Gross Description Received specimen in a ThinPrep vial. 06/04/2023 1:51 PM AUDIO VISUAL AIDS DIRECTOR [facility] Pap Test Source Cervical/Endocervi adria 06/04/2023 1:51 PM AUDIO VISUAL AIDS DIRECTOR [facility] Hormone Therapy/Contracep tives None/Not known 06/04/2023 1:51 PM AUDIO VISUAL AIDS DIRECTOR [facility] Interpretation Cervical/Endocervi adria (ThinPrep): Satisfactory for Evaluation Negative for Intraepithelial Lesion or Malignancy Reactive cellular changes associated with: Reparative or inflammatory changes Shift in cassie suggestive of bacterial vaginosis 06/04/2023 1:51 PM AUDIO VISUAL AIDS DIRECTOR [facility] Thin Prep Vial (Cervix/Endocerv ix) 06/01/2023 9:24 AM AUDIO VISUAL AIDS DIRECTOR 06/02/2023 7:58 AM AUDIO VISUAL AIDS DIRECTOR us Kiara Jacome APRN.N.Shaq., M.S.N. LAB PAP PATH DX ORDERABLES Final Result Performing Organization Address City/[facility]/ZIP Co de Phone Number [facility] [address] [place] [address], [place] [facility] [address] [place] [address] * Chlamydia / Gonorrhoeae Amplified RNA (06/01/2023 9:23 AM AUDIO VISUAL AIDS DIRECTOR) Source Swab, Vagina 06/01/2023 11:45 PM AUDIO VISUAL AIDS DIRECTOR [facility] Chlamydia trachomatis amplified RNA Negative Negative 06/01/2023 11:45 PM AUDIO VISUAL AIDS DIRECTOR [facility] Source Swab, Vagina 06/01/2023 11:45 PM AUDIO VISUAL AIDS DIRECTOR [facility] Neisseria gonorrhoeae amplified RNA Negative Negative 06/01/2023 11:45 PM AUDIO VISUAL AIDS DIRECTOR [facility] Swab (Vagina) 06/01/2023 9:2 3 AM AUDIO VISUAL AIDS DIRECTOR 06/01/2023 2:51 PM AUDIO VISUAL AIDS DIRECTOR us Kiara Jacome APRN.N.P., M.S.N. LAB MICROBIOLOGY - GENERAL ORDERABLES Final Result [facility] [address] [place] [address], [facility] [address] [facility] [address] [place] [id number] from Last 3 Months or Most Recently Relevant to Health Maintenance Insurance * Guarantor: Fani Hu Account Type Relation to Patient Date of Phone Billing Address Personal/Family Self 2000 [id number] [facility] [address] [place] [address] [facility] Care Teams Radio Commentator Relationship Specialty Start Date End Date Elsewhere, Pcp PCP - General 11/24/21
== END 2024-12-15 00:03 | disposition home or self-care (01) ==
PROVIDERS: Emergency Provider Student in an Organized Health Care Education/Training Program
DX: E83.51 Hypocalcemia (principal)
CPT/HCPCS: 36415; 70450; 80048; 80076; 83735; 83970; 84100; 85025; 93005; 99284; A9270